=== PATIENT | female | born 1950 | race Caucasian/White ===

== ENCOUNTER 2019-10-26 12:40 | Outpatient (CLI) | payer MEDICARE, SELFPAY ==
--- NOTE | ~2019-10-26 | XR_ITS ---
XR chest 2V 10/26/2019 12:59 Indication: Mycobacterium infection Procedure: 2 view chest Comparison: Comparison to multiple prior studies sequentially, with oldest reviewed study dated 02/02. Findings: There is bullous emphysema. There is chronic bilateral scarring predominantly involving the upper lobes, right greater than left. There is increasing size of thick-walled cavitation in the rig ht midlung, likely infectious. Impression: 1: Increasing size of thick-walled irregular shaped cavitation right midlung, likely infectious. Othe rwise stable extensive bilateral scarring predominantly affecting the upper lobes. Reviewed, dictated and finalized at location A. Impression: 1: Increasing size of thick-walled irregular shaped cavitation right midlung, l ikely infectious. Otherwise stable extensive bilateral scarring predominantly a ffecting the upper lobes.
== END 2019-10-26 12:41 | disposition home or self-care (01) ==
PROVIDERS: PCP Family Medicine; Visit Provider Internal Medicine Pulmonary Disease
DX: A31.8 Other mycobacterial infections (principal); R91.8 Other nonspecific abnormal finding of lung field
CPT/HCPCS: 71046

== ENCOUNTER 2019-10-30 13:34 | Outpatient (CLI) | payer MEDICARE, SELFPAY ==
--- NOTE | ~2019-10-30 | CT_ITS ---
EXAMINATION: CT chest wo con DATE: 10/30/2019 14:10 INDICATION: Lung cavitation. TECHNIQUE: Computed tomography (CT) of the chest was performed without intravenous contrast. The dose -length product was 62.28 mGy-cm. Automated exposure control and iterative reconstruction technique w ere employed. COMPARISON: CT dated 12/12/2018 FINDINGS: Severe emphysema. There has been progression of bilateral nodular densities with significan t progression of associated cavitation with thick irregular aguilar, largest centered in the right uppe r lobe. There is right thoracic volume loss with mediastinal shift to the right. No significant pleur al or pericardial effusion. Heart size is normal. There are coarse interstitial changes of the lung b ases peripherally with pleural based soft tissue in the right lower lobe which has progressed. There are calcified granulomas in the liver and spleen. No osteolytic or osteoblastic lesions are identifie d. No thoracic lymphadenopathy. IMPRESSION: 1. Significant progression of irregular linear and nodular soft tissue primarily of involving the upp er lobes. There has been significant progression of associated cavitation. Differential diagnosis inc ludes infection (including atypical infection) and neoplasm including metastatic disease. Recommend c orrelation with pet/CT scan for further assessment. 2: Emphysema. Reviewed, dictated and finalized at location A. IMPRESSION: 1. Significant progression of irregular linear and nodular soft tissue primaril y of involving the upper lobes. There has been significant progression of assoc iated cavitation. Differential diagnosis includes infection (including atypical infection) and neoplasm including metastatic disease. Recommend correlation wi th pet/CT scan for further assessment. 2: Emphysema.
== END 2019-10-30 13:35 | disposition home or self-care (01) ==
PROVIDERS: PCP Family Medicine; Visit Provider Internal Medicine Pulmonary Disease
DX: R93.89 Abnormal findings on diagnostic imaging of other specified body structures (principal); R91.1 Solitary pulmonary nodule; J43.9 Emphysema, unspecified
CPT/HCPCS: 71250

== ENCOUNTER 2020-03-15 13:21 | Outpatient (CLI) | payer MEDICARE, SELFPAY ==
--- NOTE | ~2020-03-15 | CT_ITS ---
EXAMINATION:CT chest wo con DATE: 03/15/2020 14:08 INDICATION: Pulmonary nodule. TECHNIQUE: Computed tomography (CT) of the chest was performed without intravenous contrast. Automate d exposure control and iterative reconstruction technique were employed. The dose-length product (DLP ) was 61.66 mGy-cm. COMPARISON: Chest CT 10/30/2019, 12/12/2018 FINDINGS: There is severe emphysema. In right upper lobe and superior segment right lower lobe, there are airspace opacities with interval improvement with extensive cavitation. There are worsened airsp jd opacities with air bronchograms and volume loss involving lateral aspect of superior segment righ t lower lobe, likely pneumonia or scarring. There are chronic peripheral reticular opacities in the l ower lobes. There are stable airspace opacities with volume loss and cavitation in left upper lobe, c onsistent with scarring. There is chronic pleural thickening at posterolateral right lower lobe. No p leural effusion. The heart size is normal. There are coronary artery calcifications. Calcified right hilar and mediastinal lymph nodes are consistent with old granulomatous disease. Calcifications in th e liver and spleen are consistent with old granulomatous disease. There is mild thoracic spondylosis. IMPRESSION: 1. Areas of stable or improved airspace opacities with volume loss and cavitation involving the upper lobes and superior segment right lower lobe, consistent with pneumonia and scarring. 2. Worsened airspace opacities with air bronchograms and volume loss involving lateral aspect of supe rior segment right lower lobe, likely pneumonia and/or scarring. 3. Severe emphysema. Reviewed, dictated and finalized at location A. IMPRESSION: 1. Areas of stable or improved airspace opacities with volume loss and cavitati on involving the upper lobes and superior segment right lower lobe, consistent with pneumonia and scarring. 2. Worsened airspace opacities with air bronchograms and volume loss involving lateral aspect of superior segment right lower lobe, likely pneumonia and/or sc arring. 3. Severe emphysema.
== END 2020-03-15 13:22 | disposition home or self-care (01) ==
PROVIDERS: PCP Internal Medicine Pulmonary Disease; Visit Provider Internal Medicine Pulmonary Disease
DX: R91.8 Other nonspecific abnormal finding of lung field (principal); J43.9 Emphysema, unspecified
CPT/HCPCS: 71250; 87635; C9803; U0003

== ENCOUNTER 2020-06-28 09:13 | Outpatient (CLI) | payer MEDICARE, SELFPAY ==
--- NOTE | ~2020-06-28 | XR_ITS ---
EXAMINATION: XR barium swallow DATE: 06/28/2020 10:07 COCONUT COOKER INDICATION: . TECHNIQUE: Thick barium contrast with gas effervescent crystals were administered orally. Fluoroscop ic images of the esophagus were obtained in various projections. The hypopharynx was also examined. T hereafter, overhead images of the thoracic esophagrus were performed. Fluroscopy time 0.8 minutesDap 2.5. 41 fluoroscopic images. FINDINGS: There is a prominent Zenker's diverticulum. No obstruction of flow of contrast. There is no hiatal hernia. No discreet episode of gastroesophageal reflux is seen during the course of this benson dy. IMPRESSION: 1. Prominent Zenker's diverticulum. Reviewed, dictated and finalized at location A. NUT COOKER
== END 2020-06-28 09:14 | disposition home or self-care (01) ==
LOC: ANHIMG 09:22
PROVIDERS: PCP Physician Assistant; Visit Provider Physician Assistant
DX: R09.89 Other specified symptoms and signs involving the circulatory and respiratory systems (principal)
CPT/HCPCS: 74220

== ENCOUNTER 2020-08-02 14:32 | Outpatient (CLI) | payer MEDICARE, SELFPAY ==
--- NOTE | ~2020-08-02 | MM_ITS ---
EXAMINATION: MM screening charanjit BI w genevieve HISTORY: Screening mammogram TECHNIQUE: Craniocaudal and mediolateral oblique 3-D tomosynthesis images were obtained and synthetic 2-D images were generated. CAD analysis was submitted and interpreted. COMPARISON: 10/31/2017, 10/12/2015, 01/08/2014 bilateral digital screening mammogram examinations BREAST PARENCHYMAL COMPOSITION: There are scattered areas of fibroglandular density. FINDINGS: Occasional bilateral benign calcifications. There is no evidence of suspicious mass, calcif ication, or architectural distortion to suggest malignancy in either breast. There has been no suspic ious interval change. IMPRESSION: 1. No mammographic evidence of malignancy. 2. Recommend routine screening mammography in one year. BI-RADS Category 2: Benign finding(s). Reviewed, dictated and finalized at location A. RTMENT TRAFFIC FREIGHT ROUTER
== END 2020-08-02 14:33 | disposition home or self-care (01) ==
LOC: ANHIMG 14:33
PROVIDERS: PCP Physician Assistant; Visit Provider Family Medicine
DX: Z12.31 Encounter for screening mammogram for malignant neoplasm of breast (principal)
CPT/HCPCS: 77063; 77067

== ENCOUNTER 2020-08-10 09:57 | Outpatient (CLI) | payer MEDICARE, SELFPAY ==
--- NOTE | ~2020-08-10 | CT_ITS ---
EXAMINATION: CT diagnostic chest wo con DATE: 08/10/2020 10:20 INDICATION: PLEUREL EFFUSION, EMPHYSEMA, ABNORMAL FINDING OF LUNG FIELD TECHNIQUE: Computed tomography (CT) of the chest was performed without intravenous contrast. Addition al 3D reconstructions utilizing coronal maximum intensity projection (MIP) were performed. Automated exposure control and iterative reconstruction technique were employed. The dose-length product was 13 1.72 mGy-cm. COMPARISON: 03/15/2020 FINDINGS: Severe emphysema. Large cavitary lesion involving a significant portion of the posterior right upper to midlung zone with no significant change in regions of peripheral a thickened wall and multiple is impacted bronchi extending through the cavitation. There is decrease in thickness of a few bands of l inear scarring extending anteriorly and inferiorly from the cavitary lesion. There is been interval p rogression of a now thicker linear band of consolidation extending obliquely across the left mid to u pper lung zone with associated volume loss most likely atelectasis/scarring. Slight progression in a reticular pattern with irregular septal line thickening at the lateral lung bases. Unchanged band of chronic pleural thickening at the posterolateral right lower lobe. No pleural effusion or pneumothora x. Heart size is normal. Atherosclerotic coronary artery calcific lesion. No pericardial effusion. At herosclerotic calcification is along the normal caliber thoracic aorta. Calcified right hilar and med iastinal lymph nodes along with a few scattered hepatic and splenic calcifications, all consistent wi th old granulomatous disease. Mild to moderate thoracic spondylosis. IMPRESSION: 1. Continued mild improvement in airspace opacities with volume loss at the periphery of a large cavi tary lesion in the right upper lobe likely sequela of prior pneumonia and scarring. 2. Increasing thickness of a band of consolidation with corresponding increasing volume loss in the l eft upper lobe, also likely worsening atelectasis/scarring related to prior infection. 3. Severe emphysema. 4. Increasing reticular pattern at the bilateral lung bases which could represent mild pulmonary lucrecia a or chronic interstitial fibrosis with nonspecific interstitial pneumonia (NSIP) pattern. Reviewed, dictated and finalized at location B. L WORKER IMPRESSION: 1. Continued mild improvement in airspace opacities with volume loss at the per iphery of a large cavitary lesion in the right upper lobe likely sequela of samir or pneumonia and scarring. 2. Increasing thickness of a band of consolidation with corresponding increasin g volume loss in the left upper lobe, also likely worsening atelectasis/scarrin g related to prior infection. 3. Severe emphysema. 4. Increasing reticular pattern at the bilateral lung bases which could represe nt mild pulmonary edema or chronic interstitial fibrosis with nonspecific inter stitial pneumonia (NSIP) pattern.
== END 2020-08-10 09:58 | disposition home or self-care (01) ==
LOC: ANHIMG 10:01
PROVIDERS: PCP Physician Assistant; Visit Provider Internal Medicine Pulmonary Disease
DX: J90 Pleural effusion, not elsewhere classified (principal); J43.9 Emphysema, unspecified
CPT/HCPCS: 71250

== ENCOUNTER 2020-09-11 07:38 | Observation (INO) | payer MEDICARE, SELFPAY ==
[2020-09-11] VITALS (17 sets, daily range): BP systolic 108–161; BP diastolic 59–88; PULSE 68–86; RESP 16–20; TEMP 36.3–36.9; O2SAT 93–96; BMI 25.9
--- NOTE | ~2020-09-11 | CT_ITS ---
EXAMINATION: CTA chest PE protocol DATE: 09/11/2020 09:04 INDICATION: Hemoptysis TECHNIQUE: Computed tomography angiography (CTA) of the chest was performed with 100 mL Omnipaque-350 intravenous contrast timed to evaluate the pulmonary arteries. Coronal maximum intensity projection 3D-reconstructions were created by the technologist. Automated exposure control and iterative reconst ruction technique were employed. Exam dose: 279.24 mGy-cm total exam DLP. COMPARISON: 09/03 portable AP chest 08/10/2020 CT chest FINDINGS: There is diagnostic contrast enhancement of the pulmonary arteries and no evidence of pulmo nary embolism. No thoracic aortic aneurysm or dissection. There is aortic, great vessel and coronary artery calcific ation. Normal heart size. No pericardial or pleural effusion. No hilar or mediastinal mass lesion or lymphad enopathy. Again noted is a large cavity in the right mid to upper posterior lung, bilateral scarring in the upp er lobes and superior segment of the right lower lobe reticular. Peripheral interstitial fibrosis in the lower lobes particularly, suggesting usual interstitial pneumonia. No suspicious osteolytic or osteoblastic lesions. IMPRESSION: No evidence of pulmonary embolism Emphysematous changes Persistent large cavity in the posterior mid to upper right lung Extensive bilateral fibrotic changes Reviewed, dictated and finalized at Location A. Reviewed, dictated and finalized at location A. LE SCHOOL READING TEACHER
--- NOTE | ~2020-09-11 | CT_ITS ---
EXAMINATION: CT brain wo con DATE: 09/11/2020 09:04 INDICATION: Left leg paresis. TECHNIQUE: Computed tomography (CT) of the head was performed without intravenous contrast. The mA wa s adjusted according to patient size. Iterative reconstruction technique was employed. Exam dose: 60 5.33 mGy-cm total exam DLP. COMPARISON: 03/25/2017 MRI brain/brainstem 03/25/2017 CT brain FINDINGS: Bilateral carotid siphon internal carotid artery calcifications. Right vertebral artery abdirahman cification. There is mild nonspecific diminished attenuation of the cerebral white matter, likely due to chronic small vessel ischemic changes. No intracranial mass lesion or hemorrhage or cerebrovascular accident is evident. No midline shift or mass effect effect. No subdural or epidural hematoma. Paranasal sinuses and mastoid air cells are unremarkable. No skull fracture or bone destruction. IMPRESSION: Cerebral atherosclerosis and chronic small vessel ischemic changes of cerebral white mat ter No acute intracranial finding Reviewed, dictated and finalized at Location A. Reviewed, dictated and finalized at location A. MOTIVE REFINISH TECHNICIAN IMPRESSION: Cerebral atherosclerosis and chronic small vessel ischemic changes of cerebral white matter No acute intracranial finding
--- NOTE | ~2020-09-11 | XR_ITS ---
XR chest 1V portable DATE: 09/11/2020 08:50 INDICATION: Hemoptysis TECHNIQUE: Portable upright AP views on September 11, 2020 at 0850 hours COMPARISON: 10/26/2019 PA and lateral chest 08/10/2020 CT chest 09/11/2020 CT pulmonary scan FINDINGS: There is extensive scarring in the mid to upper lung zones bilaterally. Bilateral hyperinfl ation consistent with COPD. Increased interstitial markings in the lower lung zones likely due to chr onic interstitial fibrosis. No pleural effusion or pulmonary vascular congestion or pneumothorax is evident. Heart size appears within normal limits. Is aortic arch calcification. Diffuse prominent osteopenia. IMPRESSION: COPD, extensive scarring in the mid to upper lung zones, bibasilar interstitial fibrosis Reviewed, dictated and finalized at location A. OMER SERVICE ENGINEER
--- NOTE | 2020-09-11 07:45 | ECG_ITS ---
Measurements Intervals [place] Rate: 74 P: PA: 0 QRS: 163 QRSD: 101 T: 54 QT: 383 QTc: 427 Interpretive Statements SINUS RHYTHM RIGHT AXIS DEVIATION INCOMPLETE RIGHT BUNDLE BRANCH BLOCK BORDERLINE R WAVE PROGRESSION, ANTERIOR LEADS BASELINE ARTIFACT- I, II, III, AVR, AVL BORDERLINE ECG Electronically Signed On 09-11-2020 12:42:56 FINANCIAL PROFESSIONAL by Mihir Albert D.O.
--- NOTE | 2020-09-11 07:48 | ED.NEUROSD ---
HPI - Neuro Symptoms/Deficit General Chief Complaint: Neuro Symptoms/Deficit Stated Complaint: neuro symptoms History of Present Illness HPI Narrative: She awoke from sleep around 5AM today with a feeling of numbness in her left leg. She reports that she is not able to move it normally, but she appears to be moving quite well. She says that she may have originally had numbness in the left arm as well, although she does not have any at this time. Related Data Home Medications Medication Instructions Recorded Confirmed albuterol sulfate 0.63 mg/3 mL 2.5 mg INHALATION Q12H 08/19/19 09/11/20 solution for nebulization albuterol sulfate 90 mcg/actuation 2 inhalation INHALATION Q4-6H PRN 08/19/19 09/11/20 aerosol inhaler gm budesonide-formoterol HFA 160 2 puff INHALATION Q12H 08/19/19 09/11/20 mcg-4.5 mcg/actuation aerosol inhaler cevimeline 30 mg capsule 1 cap PO TID 08/19/19 09/11/20 leflunomide 20 mg tablet 20 mg PO DAILY 08/19/19 09/11/20 omeprazole 20 mg capsule,delayed 20 mg PO DAILY 08/19/19 09/11/20 release cetirizine 10 mg tablet 5 mg PO DAILY 08/20/19 09/11/20 aspirin 325 mg tablet 325 mg PO HS 05/20/20 09/11/20 diphenhydramine HCl 25 mg tablet 50 mg PO HS 05/20/20 09/11/20 alprazolam 0.25 mg PO HS PRN 09/11/20 09/11/20 irbesartan 75 mg PO DAILY 09/11/20 09/11/20 Allergies Allergy/AdvReac Type Severity Reaction Status Date / Time No Known Allergies Verified 09/11/20 07:44 Review of Systems Review of Systems: All systems reviewed & are unremarkable except as noted in HPI and below Constitutional: Constitutional: Denies fever(s) and Reports weakness Eyes: Eyes: Reports no additional eye complaints ENT: Denies dizziness Cardiovascular: Cardiovascular: Denies chest pain Respiratory: Respiratory: Denies dyspnea Gastrointestinal: Gastrointestinal: Denies abdominal pain Genitourinary: Genitourinary: Denies hematuria and Denies dysuria Musculoskeletal: Musculoskeletal: Reports myalgias Neurologic: Reports focal weakness and Reports numbness PMFSH Past Medical History Medical History Chronic GERD COPD (chronic obstructive pulmonary disease) CVA (cerebral vascular accident) JOSE DAVID (generalized anxiety disorder) Hyperlipidemia Hypertension Hypothyroidism determined by thyroid function test Mycobacterial pneumonia Rheumatoid arthritis Surgical History Surgical History Cataract extraction status History of cholecystectomy History of removal of pigmented skin lesion Family History Family History Mother Family history of heart disease in male family member before age 55 Family history of cardiovascular disease Family history of emphysema Father Family history of cardiovascular disease Acute myocardial infarction Grandparent Family history of malignant neoplasm Sibling Cerebrovascular accident Sibling Cerebrovascular accident Other Family history of malignant neoplasm of breast in first degree relative Social History Social History Social History: The patient is retired from doing office work. She lives with her who is a durable power associate attorney for healthcare. Her daughter Adelaida is also the durable power associate attorney for healthcare in the event that her is not available. The patient is a former smoker. She does not use any marijuana or illicit drugs. Alcohol. Smoking packs per day: 1 Smoking cigarettes per day: 20.0 Years smoked: 30 Smoking pack-years: 30.00 Smoking status: Former smoker Tobacco type: cigarettes Second hand tobacco smoke exposure: No Smoking end date: 07/15/13 Alcohol intake: never Substance use: never Substance use type: does not use Gender identity (if verbalized by the patient): Female Flor
[2020-09-11 08:12] LABS: Basophils Absolute Auto 0.1 K/mm3 (0.0-0.1); Basophils Percent Auto 1.1 % (0.2-1.2); Eosinophils Absolute Auto 0.3 K/mm3 (0-0.3); Hematocrit 40.4 % (37.0-47.0); Hemoglobin 13.4 g/dL (12.0-15.0); Immature Granulocyte Absolute 0.03 K/mm3 (0.00-0.031); Immature Granulocyte Percent A 0.3 % (0-0.5); Lymphocytes Absolute Auto 1.58 K/mm3 (0.9-3.2); Lymphocytes Percent Auto 17.2 % (18.3-44.2); Mean Corpuscular HGB Conc 33.2 g/dl (32-36); Mean Corpuscular Hemoglobin 30.9 pg (26-34); Mean Corpuscular Volume 93.1 fl (80-100); Mean Platelet Volume 8.9 fl (7.4-10.4); Monocytes Absolute Auto 0.9 K/mm3 (0.1-0.6); Monocytes Percent Auto 9.4 % (2.6-8.5); Neutrophils Absolute Auto 6.3 K/mm3 (1.3-6.7); Platelet Count Result 372 k/mm3 (150-375); Red Blood Count 4.34 M/mm3 (4.2-5.4); Red Cell Distribution Width 13.9 % (11.5-14.5); White Blood Count 9.2 K/mm3 (4.5-10.0)
[2020-09-11 08:14] LABS: Add Urine Microscopic? NO; Appearance Urine Clear (Clear); Bilirubin Urine Negative (Negative); Blood Urine Negative (Negative); Color Urine Straw (Yellow); Glucose Urine UA Negative (Negative); Ketones Urine Negative (Negative); Leukocyte Esterase Ur Negative LEU/UL (Negative); Nitrate Urine Negative (Negative); Protein Urine Negative (Negative); Specific Grav Ur 1.008 (1.001-1.035); Urobilinogen Urine Negative mg/dL (<2.0)
[2020-09-11 08:22] LABS: INR 0.9; Prothrombin Time 13.1 Seconds (11.1-14.7)
[2020-09-11 08:23] LABS: Partial Thromboplastin Time 37.7 SECONDS (22.3-36.8)
[2020-09-11 08:24] LABS: Alanine Aminotransferase 13 U/L (4-35); Alkaline Phosphatase 110 U/L (38-126); Anion Gap 9 mmol/L (8-16); Aspartate Amino Transferase 22 U/L (14-36); Bilirubin,Total 0.4 mg/dL (0.2-1.3); Blood Urea Nitrogen 8 mg/dL (7-17); Calcium 9.3 mg/dL (8.4-10.2); Carbon Dioxide 24 mmol/L (22-30); Chloride 106 mmol/L (98-107); Estimated Glomerular Filt Rate > 60; Glucose 98 mg/dL (65-105); Potassium 4.1 mmol/L (3.4-5.0); Sodium 139 mmol/L (137-145)
[2020-09-11 08:38] LABS: Troponin I 0.487 ng/mL (0.000-0.034)
[2020-09-11] MEDS: ACETAMINOPHEN 500 MG TABLET 1000 MG PO (10:50)
--- NOTE | 2020-09-11 13:03 | ECG_ITS ---
Measurements Intervals [place] Rate: 80 P: 9 MS: 168 QRS: 152 QRSD: 94 T: 54 QT: 391 QTc: 451 Interpretive Statements SINUS RHYTHM RIGHT AXIS DEVIATION INCOMPLETE RIGHT BUNDLE BRANCH BLOCK POOR R WAVE PROGRESSION, ANTERIOR LEADS BASELINE ARTIFACT- II, III, V5 BORDERLINE ECG Electronically Signed On 09-11-2020 16:04:17 FLAME CUTTER by Mihir Albert D.O.
--- NOTE | 2020-09-11 13:10 | ECG_ITS ---
Measurements Intervals [place] Rate: 80 P: 81 MT: 194 QRS: 140 QRSD: 100 T: 62 QT: 384 QTc: 444 Interpretive Statements SINUS RHYTHM RIGHT AXIS DEVIATION INCOMPLETE RIGHT BUNDLE BRANCH BLOCK POOR R WAVE PROGRESSION, ANTERIOR LEADS BASELINE ARTIFACT- I, III, AVR, AVL, AVF, V4-V6 Electronically Signed On 09-11-2020 16:08:22 LOGISTICS SUPERVISOR by Mihir Albert D.O.
[2020-09-11] MEDS: HEPARIN SODIUM 5,000 UNITS/ML VIAL 4000 UNITS IV PUSH ×2 (13:39→18:35)
--- NOTE | 2020-09-11 13:58 | ADMGEN ---
This patient, Malinda Olvera, was admitted to IMU Room 204-01. Patient/family oriented to hospital policies and general routines including ID bracelet, bed and alarms, visiting hours, pain management, procedures, bathroom and other care routines, personal items, smoking policy, room service/diet, and visiting hours. Information on how to activate the Rapid Response Team has been discussed. Patient/Family are encouraged to report perceived risks to care and to ask questions if they do not understand what they are told or what they should do.
[2020-09-11] MEDS: HEPARIN SOD/D5W 100 UNITS/ML 25,000 UNITS/250 ML BAG 6 UNITS IV CONT (14:16)
--- NOTE | 2020-09-11 17:29 | PM.IMHP ---
H&P: HPI History of Present Illness Date/Time: 09/11/20 17:29 Chief Complaint: Left leg weakness Narrative: Malinda Olvera is a 70 year old female who woke up from her sleep around 5:00 a.m. this morning and felt that her left leg was numb. The patient tells me that she has had a CVA in the past and that she has fully recovered from the stroke that she had in the past. She said when she had her last stroke she was not even able to speak and now she has regained all that. The patient stated that she could set up earlier today and she could feel her left leg. Now she can move her left leg some and she can sit up. She denies any chest pain. The patient has a history of having mac. She recently had been on rifampin and had a bad reaction to the medication. 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 She has been on 3 different antibiotics for her MAC. She uses inhalers and nebulizer treatment at home. The patient has a ecological technical officer elsewhere. Today she tells me that she is having some pressure in her chest. Patient's troponin was initially 0.487 and now it is 2.030. The patient was placed on a heparin drip. Divide deviation incomplete right bundle branch block poor R-wave progression anterior leads baseline artifact and borderline EKG chest CT a was read as no evidence of any pulmonary embolism. Atherosclerosis and chronic small vessel ischemic changes of cerebral white matter. No acute intracranial finding. Chest x-ray was read as COPD extensive scarring in the mid to upper lung zones, bibasilar interstitial fibrosis. On heparin drip in the emergency room. Patient is being admitted for observation. Date of service is 09/11/2020 Review of Systems Review of Systems: All systems reviewed & are unremarkable except as noted in HPI and below Constitutional: Constitutional: Reports as per HPI and Reports no additional constitutional complaints Eyes: Eyes: Reports as per HPI and Reports no additional eye complaints ENT: Reports system reviewed and no additional complaints, except as documented and Reports Normal hearing present Cardiovascular: Cardiovascular: Reports no additional cardiovascular complaints Respiratory: Respiratory: Reports no additional respiratory complaints and Reports no additional respiratory complaints Gastrointestinal: Gastrointestinal: Reports as per HPI and Reports no additional gastrointestinal complaints Musculoskeletal: Musculoskeletal: Reports no additional musculoskeletal complaints Integumentary/Breasts: Skin/Breast: Reports system reviewed and no additional complaints, except as docu and Reports as per HPI Neurologic: Reports system reviewed and no additional complaints, except as documented, Reports as per HPI and Reports Normal hearing present Psychiatric: Psychiatric: Reports no additional psychiatric complaints and Reports as per HPI Endocrine: Endocrine: Reports no additional endocrine complaints Hematologic/Lymphatic: Hematologic/Lymphatic: Reports no additional hematologic/lymphatic complaints Allergic/Immunologic: Allergic/Immunologic: Reports no additional allergic/immunologic complaints [facility] [place] Past Medical History Medical History (Updated 09/11/20 @ 17:42 by Natalya Leonard NP) Chronic GERD COPD (chronic obstructive pulmonary disease) CVA (cerebral vascular accident) JOSE DAVID (generalized anxiety disorder) Hyperlipidemia Hypertension Hypothyroidism determined by thyroid function test Mycobacterial pneumonia Rheumatoid arthritis Surgical History Surgical History (Updated 09/11/20 @ 17:42 by Natalya Leonard NP) Cataract extraction status History of cholecystectomy History of removal of pigmented skin lesion Family History Family History Mother Family history of heart disease in male family member before age 55 Family history of cardiovascular disease Family history of emphysema F
[2020-09-11 18:16] LABS: Partial Thromboplastin Time 45.1 SECONDS (22.3-36.8)
[2020-09-11] MEDS: HEPARIN SOD/D5W 100 UNITS/ML 25,000 UNITS/250 ML BAG 8 UNITS IV CONT (18:36)
[2020-09-11] MEDS: ACETAMINOPHEN/CODEINE (*CRX) 300/30 MG TABLET 0.5 TAB PO (20:50)
[2020-09-11] MEDS: ALPRAZolam (*CRX) 0.25 MG TABLET PO (20:50)
[2020-09-11] MEDS: diphenhydrAMINE HCl CAP 25 MG CAPSULE PO (20:51)
[2020-09-12] VITALS (19 sets, daily range): BP systolic 101–129; BP diastolic 49–69; PULSE 71–93; RESP 14–22; TEMP 35.8–36.6; O2SAT 92–100
[2020-09-12 00:45] LABS: Partial Thromboplastin Time 63.9 SECONDS (22.3-36.8)
[2020-09-12] MEDS: HEPARIN SODIUM 5,000 UNITS/ML VIAL 2000 UNITS IV PUSH (01:54)
--- NOTE | 2020-09-12 07:31 | PHAR ---
The patient's home med of Cevimeline [Evoxac] 30 mg capsule has been verified.
--- NOTE | 2020-09-12 08:30 | WPDNEURCNPN ---
Assessment and Plan Additional Plan TIA evaluation is being carried out Consult date: 09/12/20 Time Seen: 09:00 HPI: Malinda Olvera is a 70 year old femaleFor the complaints of left lower extremity weakness. Patient woke up from her sleep around 5:00 a.m. and felt as if her left lower extremity was numb. 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 in the past she has ongoing history of GERD, COPD, generalized anxiety disorder, hypertension, hypothyroidism, and mycobacterial pneumonia, and rheumatoid arthritis. Investigations up until now include chest CTA and head CT scan, O the studies are negative PMFSH Past Medical History Medical History Chronic GERD COPD (chronic obstructive pulmonary disease) CVA (cerebral vascular accident) JOSE DAVID (generalized anxiety disorder) Hyperlipidemia Hypertension Hypothyroidism determined by thyroid function test Mycobacterial pneumonia Rheumatoid arthritis Surgical History Surgical History Cataract extraction status History of cholecystectomy History of removal of pigmented skin lesion Family History Family History Mother Family history of heart disease in male family member before age 55 Family history of cardiovascular disease Family history of emphysema Father Family history of cardiovascular disease Acute myocardial infarction Grandparent Family history of malignant neoplasm Sibling Cerebrovascular accident Sibling Cerebrovascular accident Other Family history of malignant neoplasm of breast in first degree relative Social History Social History Social History: The patient is retired from doing office work. She lives with her who is a durable power county attorney for healthcare. Her daughter Adelaida is also the durable power county attorney for healthcare in the event that her is not available. The patient is a former smoker. She does not use any marijuana or illicit drugs. Alcohol. Smoking packs per day: 1 Smoking cigarettes per day: 20.0 Years smoked: 30 Smoking pack-years: 30.00 Smoking status: Former smoker Tobacco type: cigarettes Second hand tobacco smoke exposure: No Smoking end date: 07/15/13 Alcohol intake: never Substance use: never Substance use type: does not use Gender identity (if verbalized by the patient): Female Spiritual care concerns: No Meds Home Medications and Allergies Home Medications Medication Instructions Recorded Confirmed Type albuterol sulfate 0.63 mg/3 mL 2.5 mg INHALATION Q12H 08/19/19 09/11/20 History solution for nebulization albuterol sulfate 90 mcg/actuation 2 inhalation INHALATION Q4-6H PRN 08/19/19 09/11/20 History aerosol inhaler gm budesonide-formoterol HFA 160 2 puff INHALATION Q12H 08/19/19 09/11/20 History mcg-4.5 mcg/actuation aerosol inhaler cevimeline 30 mg capsule 1 cap PO TID 08/19/19 09/11/20 History leflunomide 20 mg tablet 20 mg PO DAILY 08/19/19 09/11/20 History omeprazole 20 mg capsule,delayed 20 mg PO DAILY 08/19/19 09/11/20 History release cetirizine 10 mg tablet 5 mg PO DAILY 08/20/19 09/11/20 History aspirin 325 mg tablet 325 mg PO HS 05/20/20 09/11/20 History diphenhydramine HCl 25 mg tablet 50 mg PO HS 05/20/20 09/11/20 History atorvastatin 20 mg tablet 20 mg PO DAILY #90 tablet 08/15/20 09/11/20 Rx alprazolam 0.25 mg PO HS PRN 09/11/20 09/11/20 History i
[2020-09-12] MEDS: LEFLUNOMIDE 20 MG TABLET PO (08:43)
[2020-09-12] MEDS: LORATADINE 5 MG TABLET PO (08:43)
[2020-09-12] MEDS: ACETAMINOPHEN/CODEINE (*CRX) 300/30 MG TABLET 0.5 TAB PO (08:44)
[2020-09-12] MEDS: AZITHROMYCIN 250 MG TABLET PO (08:44)
[2020-09-12] MEDS: PANTOPRAZOLE 40 MG TABLET PO (08:45)
[2020-09-12] MEDS: IRBESARTAN 75 MG TABLET PO (08:45)
[2020-09-12] MEDS: ATORVASTATIN 20 MG TABLET PO (08:45)
--- NOTE | 2020-09-12 08:53 | PC.NURSE ---
Patient states she is no longer taking 150mg of Irbesartan.
[2020-09-12 09:06] LABS: Basophils Absolute Auto 0.1 K/mm3 (0.0-0.1); Basophils Percent Auto 1.4 % (0.2-1.2); Eosinophils Absolute Auto 0.2 K/mm3 (0-0.3); Eosinophils Percent Auto 2.6 % (0-4.4); Hematocrit 37.3 % (37.0-47.0); Hemoglobin 12.4 g/dL (12.0-15.0); Immature Granulocyte Absolute 0.03 K/mm3 (0.00-0.031); Immature Granulocyte Percent A 0.3 % (0-0.5); Lymphocytes Absolute Auto 1.92 K/mm3 (0.9-3.2); Lymphocytes Percent Auto 21.8 % (18.3-44.2); Mean Corpuscular HGB Conc 33.2 g/dl (32-36); Mean Corpuscular Hemoglobin 30.5 pg (26-34); Mean Corpuscular Volume 91.6 fl (80-100); Mean Platelet Volume 9.2 fl (7.4-10.4); Monocytes Absolute Auto 0.9 K/mm3 (0.1-0.6); Monocytes Percent Auto 10.2 % (2.6-8.5); Neutrophils Absolute Auto 5.6 K/mm3 (1.3-6.7); Neutrophils Percent Auto 63.7 % (45.5-73.1); Platelet Count Result 387 k/mm3 (150-375); Red Blood Count 4.07 M/mm3 (4.2-5.4); Red Cell Distribution Width 14.1 % (11.5-14.5); White Blood Count 8.8 K/mm3 (4.5-10.0)
[2020-09-12 09:12] LABS: Lactic Acid Reflex 1.2 mmol/L (0.7-2.1); Partial Thromboplastin Time 49.5 SECONDS (22.3-36.8)
[2020-09-12 09:14] LABS: Alanine Aminotransferase 14 U/L (4-35); Albumin Level 3.9 g/dL (3.5-5.1); Alkaline Phosphatase 95 U/L (38-126); Anion Gap 6 mmol/L (8-16); Aspartate Amino Transferase 27 U/L (14-36); Bilirubin,Total 0.4 mg/dL (0.2-1.3); Blood Urea Nitrogen 9 mg/dL (7-17); Calcium 9.1 mg/dL (8.4-10.2); Carbon Dioxide 25 mmol/L (22-30); Chloride 104 mmol/L (98-107); Estimated CRCL calculation 53 ml/min; Estimated Glomerular Filt Rate > 60; Glucose 127 mg/dL (65-105); Sodium 135 mmol/L (137-145)
[2020-09-12 09:28] LABS: Troponin I 0.581 ng/mL (0.000-0.034)
[2020-09-12] MEDS: ALBUTEROL SULFATE NEB 2.5 MG/0.5 ML INH INHALATION (10:37)
[2020-09-12] MEDS: HEPARIN SODIUM 5,000 UNITS/ML VIAL 4000 UNITS IV PUSH (11:14)
--- NOTE | 2020-09-12 12:30 | PM.CNCAR ---
Assessment and Plan Additional Plan 70-year-old woman with: Intermittent episodes of back and substernal chest burning that have been occurring off and on of recent onset. She has been attributing these symptoms to her anti mycobacterial agent. Obviously the symptoms could easily be related to myocardial ischemia given her risk factors. Her troponin levels indicate evidence of acute coronary syndrome. She has been receiving aspirin and has now been heparinized. Had a long discussion with the patient and her regarding the concern that this raises regarding coronary artery disease. The options of conservative medical treatment versus proceeding with an angiogram have been discussed in detail. The decision is that the patient favors a early invasive approach to this and evaluation. I will arrange for angiography this afternoon. Further recommendations will be pending completion of that exam. Obviously she had as a high risk for surgical revascularization given her extensive lung disease. Abhay Spivey MD [facility] History of Present Illness History of Present Illness Consult date/time: 09/12/20 12:30 Consult reason: chest pain Reason For Visit: leg weakness/elevated troponin/hemoptysis Narrative: This is a 70-year-old woman that I am seeing at the request of the hospitalist because of some symptoms of back and chest pain and a elevated troponin level that was identified following admission. She actually came to the hospital yesterday morning with noncardiac symptoms of numbness and motor dysfunction of her left lower extremity. She had some mild symptoms in her left arm but the principal concern was of her left leg she noticed the symptoms when she awakened from sleep yesterday. 911 was called she was brought to the hospital for evaluation. The left leg symptoms became improved over the course of the day yesterday when she woke up this morning she states the leg feels close to normal. She was felt to have had a TIA and was seen by the Neurology testing consultant. A CT scan of the head did not demonstrate any intracranial bleeding. In addition to the symptoms she states she has been having some episodes of discomfort in the interscapular region of her back associated with some burning in the center of the chest in the sternal region. These symptoms seem to be coming and going in an unpredictable fashion. She was recently started on Rifampin by her larriman helper and she was attributing these symptoms to her antibiotic. The patient apparently because of these symptoms had troponin levels done which were negative on the 1st sample but the 2nd sample laurent up to over 2.0. For that reason I have been consulted to see her today. She has no active complaints at the time of this consultation. She has the diagnosis of hypertension and some dyslipidemia her principal comorbidity however is relatively severe chronic lung disease. This appears to be due to previous history of cigarette smoking as well as chronic mycobacterium avium intracellulare infection. She has cavitary lesions in the lung apices bilaterally. Review of Systems Constitutional: Constitutional: Reports no additional constitutional complaints Eyes: Eyes: Reports no additional eye complaints ENT: Reports nasal discharge Cardiovascular: Cardiovascular: Reports as per HPI Respiratory: Respiratory: Reports cough and Reports dyspnea Comments: Chronic cough occasionally blood streaked hemoptysis Gastrointestinal: Gastrointestinal: Reports no additional gastrointestinal complaints Musculoskeletal: Musculoskeletal: Reports no additional musculoskeletal complaints Integumentary/Breasts: Skin/Breast: Reports system reviewed and no additional complaints, except as docu Neurologic: Reports system reviewed and no additional complaints, except as documented Psychiatric: Psychiatric: Reports no additional psychiatric complaints Endocrine: Endocrine: Reports no additional endocrine compla
--- NOTE | 2020-09-12 13:33 | WPDMODSED ---
Moderate Sedation Note-Pt Data Patient Data Diagnosis: intermittent chest interscapular back pain left lower extremity numbness troponin elevation compatible with acute coronary syndrome Present Complaint: intermittent retrosternal burning and interscapular pain and troponin elevation Procedure to be performed/Plan: left heart catheterization Allergies Allergy/AdvReac Type Severity Reaction Status Date / Time No Known Allergies Verified 09/11/20 07:44 Home Medications Medication Instructions Recorded Confirmed Type albuterol sulfate 0.63 mg/3 mL 2.5 mg INHALATION Q12H 08/19/19 09/11/20 History solution for nebulization albuterol sulfate 90 mcg/actuation 2 inhalation INHALATION Q4-6H PRN 08/19/19 09/11/20 History aerosol inhaler gm budesonide-formoterol HFA 160 2 puff INHALATION Q12H 08/19/19 09/11/20 History mcg-4.5 mcg/actuation aerosol inhaler cevimeline 30 mg capsule 1 cap PO TID 08/19/19 09/11/20 History leflunomide 20 mg tablet 20 mg PO DAILY 08/19/19 09/11/20 History omeprazole 20 mg capsule,delayed 20 mg PO DAILY 08/19/19 09/11/20 History release cetirizine 10 mg tablet 5 mg PO DAILY 08/20/19 09/11/20 History aspirin 325 mg tablet 325 mg PO HS 05/20/20 09/11/20 History diphenhydramine HCl 25 mg tablet 50 mg PO HS 05/20/20 09/11/20 History atorvastatin 20 mg tablet 20 mg PO DAILY #90 tablet 08/15/20 09/11/20 Rx alprazolam 0.25 mg PO HS PRN 09/11/20 09/11/20 History irbesartan 75 mg PO DAILY 09/11/20 09/11/20 History Current Medications: Active Medications Acetaminophen/Codeine Phosphate (Acetaminophen/Codeine (*Crx) 300/30 Mg Tablet) 0.5 tab PO QID PRN PRN Reason: Pain Last Admin: 09/12/20 08:44 Dose: 0.5 tab Documented by: Albuterol (Albuterol Sulfate Neb 2.5 Mg/0.5 Ml Inh) 2.5 mg INHALATION Q4HRT PRN PRN Reason: Shortness Of Breath Last Admin: 09/12/20 10:37 Dose: 2.5 mg Documented by: Alprazolam (Alprazolam (*Crx) 0.25 Mg Tablet) 0.25 mg PO HS PRN PRN Reason: Anxiety Last Admin: 09/11/20 20:50 Dose: 0.25 mg Documented by: Atorvastatin Calcium (Atorvastatin 20 Mg Tablet) 20 mg PO DAILY [facility] Last Admin: 09/12/20 08:45 Dose: 20 mg Documented by: Azithromycin (Azithromycin 250 Mg Tablet) 250 mg PO DAILY [facility] Last Admin: 09/12/20 08:44 Dose: 250 mg Documented by: Benzonatate (Benzonatate 100 Mg Capsule) 200 mg PO TID PRN PRN Reason: Cough Budesonide/Formoterol Fumarate (Budesonide/Form 160-4.5 Mcg (*Sp)) 2 puff INHALATION Q12HRT [facility] Last Admin: 09/12/20 10:43 Dose: 2 puff Documented by: Diphenhydramine HCl (Diphenhydramine Hcl Cap 25 Mg Capsule) 25 mg PO Q6H PRN PRN Reason: Allergy Symptoms Last Admin: 09/11/20 20:51 Dose: 25 mg Documented by: Heparin Sodium (Porcine) (Heparin Sodium 5,000 Units/Ml Vial) 4,000 units IV PUSH PRN PRN PRN Reason: aPTT less than 55 seconds Last Admin: 09/12/20 11:14 Dose: 4,000 units Documented by: Heparin Sodium (Porcine) (Heparin Sodium 5,000 Units/Ml Vial) 2,000 units IV PUSH PRN PRN PRN Reason: aPTT 55 - 70 seconds Last Admin: 09/12/20 01:54 Dose: 2,000 units Documented by: Heparin Sodium/Dextrose (Heparin Sodium/D5w 100 Units/Ml) 25,000 units in 250 mls @ 11 mls/hr IV CONT .[id number] [facility]; Protocol Last Titration: 09/12/20 11:16 Dose: 1,100 units/hr, 11 mls/hr Documented by: Irbesartan (Irbesartan 150 Mg Tablet) 150 mg PO DAILY [facility] Last Admin: 09/12/20 08:53 Dose: Not Given Documented by: Irbesartan (Irbesartan 75 Mg Tablet) 75 mg PO DAILY [facility] Last Admin: 09/12/20 08:45 Dose: 75 mg Documented by: Leflunomide (Leflunomide 20 Mg Tablet) 20 mg PO DAILY [facility] Last Admin: 09/12/20 08:43 Dose: 20 mg Documented by: Loratadine (Loratadine 5 Mg Tablet) 5 mg PO DAILY PRN PRN Reason: Cough from allergies Last Admin: 09/12/20 08:43 Dose: 5 mg Documented by: Pantoprazole Sodium (Pantoprazole 40 Mg Tablet) [facility] [place] Admin: 09/12/20 08:45 Dose: 40 mg Documented by: Sedation/Anesthe
--- NOTE | 2020-09-12 14:35 | P.PCNCC_ITS ---
Cardiac Cath Procedure Note Date of procedure:: 09/12/20 Performing physician:: Abhay Spivey MD Indication:: intermittent chest pain, troponin elevation Brief clinical history:: this is a 70-year-old lady with a long history of chronic lung disease and intermittent episodes of chest discomfort and intermittent back discomfort. In the setting of all of this she developed a modest troponin rise and has been seen in consultation. Angiography was recommended to rule out obstructive coronary disease. Procedure Procedure performed:: Left ventriculography coronary angiography Angio-Seal to right femoral artery Sedation/Medication given:: fentanyl 25 mg Versed 2 mg case start 14 15 hours case time 2:29 p.m. sedation provided by Keysha Lincoln RN, trained observer Access site:: right femoral artery Estimated blood loss:: 10-15 cc Procedure note:: patient was brought to the cardiac catheterization lab in the postabsorptive state where the right femoral triangle was prepared and draped in the usual fashion. Anesthesia was provided with 1% lidocaine infiltrated locally. Using the modified Seldinger technique the femoral artery was punctured and a 5 [place] vascular sheath was placed. After this left heart catheterization was carried out. A 5 [place] angled pigtail catheter was used to measure left-sided hemodynamics and to inject the left ventriculogram in the are AO projection. After this a 5 [place] FL4 catheter was used to engage and inject the left coronary artery and a 5 [place] JR4 catheter was then used to engage and inject the right coronary artery. Procedure was then terminated. An angiogram was done of the femoral artery through the sheath after which a 6 [place] Angio- Seal device was used to deploy the puncture site with a good hemostatic result. There were no apparent procedural complications and she left the dental laboratory assistant with no evidence of a groin hematoma. Findings:: Hemodynamics: Central aorta is 1 10/52 left ventricle 110/1 end- diastolic pressure of 8 there is no systolic gradient on pullback across the aortic valve. Left ventricle: Dimension of the left ventricle is normal. The apical 1/3 of the left ventricle is akinetic the apex is frankly dyskinetic. The mid and basal portions contract well. The left main coronary is nicely patent left anterior descending is a medium caliber artery the LAD and its branches are patent down to the apex there is no evidence of atherosclerosis. Circumflex is dominant to the inferior segment the circumflex the marginal branches in the posterior branches are angiographically free of disease. Right coronary artery small in caliber and non dominant giving rise to 2 RV branches. The right coronary is also free of atherosclerosis. Conclusion:: 1. Left coronary dominant circulation with no evidence of coronary disease 2. the ventricular pattern typical of apical ballooning the picture of takotsubo stress cardiomyopathy Abhay Spivey MD [facility]
--- NOTE | 2020-09-12 15:49 | PM.IMPN ---
Progress Note: A&P Assessment and Plan (1) NSTEMI (non-ST elevated myocardial infarction): Code(s): I21.4 - Non-ST elevation (NSTEMI) myocardial infarction Status: Acute Assessment and Plan: Cardiology has been consulted. Will continue to trend her troponins. Patient is on heparin drip. She does not appear to be on any beta-filiberto. Further recommendations per Cardiology. 09/12/20 15:49 patient is 70-year-old female with history of CVA in the past, presented emergency department with a complaint left lower extremity weakness patient stated initially she could not feel or find her left lower extremity, gradually her symptoms improved, CT scan of the head was essentially normal without any acute injury, patient's symptoms have resolved and has no complaint of any weakness, however patient cardiac enzymes are significantly elevated patient seen by Cardiology and recommending cardiac catheterization for further evaluation, and son is also present in the room, patient had a cardiac catheterization it was essentially normal however it showed cardiomyopathy cardiology suspect takotsubo stress cardiomyopathy, for elevated tropes patient was placed on heparin drip was not able to have MRI of the brain, once off the drip will have MRI and further recommendation to follow, will have a PT OT evaluate the patient. Patient remains clinically stable, her symptoms have resolved and patient will likely discharge and will have MRI as outpatient by her primary care physician. (2) Mycobacterial pneumonia: Code(s): J15.8 - Pneumonia due to other specified bacteria; A31.9 - Mycobacterial infection, unspecified Status: Chronic Assessment and Plan: Continue with her home antibiotics and inhalers and nebulizer treatments. (3) COPD (chronic obstructive pulmonary disease): Qualifiers: COPD type: unspecified COPD Qualified Code(s): J44.9 - Chronic obstructive pulmonary disease, unspecified Code(s): J44.9 - Chronic obstructive pulmonary disease, unspecified Status: Acute Assessment and Plan: Continue with home inhalers and nebulizer treatments. (4) JOSE DAVID (generalized anxiety disorder): Code(s): F41.1 - Generalized anxiety disorder Status: Acute Assessment and Plan: Continue with alprazolam. (5) Hypertension: Qualifiers: Hypertension type: essential hypertension Qualified Code(s): I10 - Essential (primary) hypertension Code(s): I10 - Essential (primary) hypertension Status: Acute Assessment and Plan: Continue with irbesartan. (6) Rheumatoid arthritis: Code(s): M06.9 - Rheumatoid arthritis, unspecified Status: Acute Assessment and Plan: Continue with home medications. (7) Chronic GERD: Code(s): K21.9 - Gastro-esophageal reflux disease without esophagitis Status: Chronic Assessment and Plan: Continue with omeprazole. Time Spent With Patient Time with patient: 25 - 35 minutes Subjective Date/time seen: 09/12/20 15:49 patient is 70-year-old female with history of CVA in the past, presented emergency department with a complaint left lower extremity weakness patient stated initially she could not feel or find her left lower extremity, gradually her symptoms improved, CT scan of the head was essentially normal without any acute injury, patient's symptoms have resolved and has no complaint of any weakness, however patient cardiac enzymes are significantly elevated patient seen by Cardiology and recommending cardiac catheterization for further evaluation, and son is also present in the room, patient had a cardiac catheterization it was essentially normal however it showed cardiomyopathy cardiology suspect takotsubo stress cardiomyopathy, for elevated tropes patient was placed on heparin drip was not able to have MRI of the brain, once off the drip will have MRI and further recommendation to follow, will have a PT OT ev
--- NOTE | 2020-09-12 16:12 | SUR.PHASEII ---
Report called to Martha BISHOP. Patient transported back to IMU via stretcher. Groin and distal pulse assessed at bedside by both trestle mainternance laborer RN and Tanya BISHOP at bedside. Patient updated on plan of care and verbalizes understanding.
--- NOTE | 2020-09-12 16:12 | PM.DS ---
DS: Admitting Diagnosis Admitting Diagnosis Admitting Diagnosis: Chief Complaint: Left leg weakness DS: Discharge Diagnosis Discharge Diagnosis (1) NSTEMI (non-ST elevated myocardial infarction): Code(s): I21.4 - Non-ST elevation (NSTEMI) myocardial infarction Status: Acute Assessment and Plan: Cardiology has been consulted. Will continue to trend her troponins. Patient is on heparin drip. She does not appear to be on any beta-filiberto. Further recommendations per Cardiology. 09/12/20 15:49 patient is 70-year-old female with history of CVA in the past, presented emergency department with a complaint left lower extremity weakness patient stated initially she could not feel or find her left lower extremity, gradually her symptoms improved, CT scan of the head was essentially normal without any acute injury, patient's symptoms have resolved and has no complaint of any weakness, however patient cardiac enzymes are significantly elevated patient seen by Cardiology and recommending cardiac catheterization for further evaluation, and son is also present in the room, patient had a cardiac catheterization it was essentially normal however it showed cardiomyopathy cardiology suspect takotsubo stress cardiomyopathy, for elevated tropes patient was placed on heparin drip was not able to have MRI of the brain, once off the drip will have MRI and further recommendation to follow, will have a PT OT evaluate the patient. Patient remains clinically stable, her symptoms have resolved and patient will likely discharge and will have MRI as outpatient by her primary care physician. (2) Mycobacterial pneumonia: Code(s): J15.8 - Pneumonia due to other specified bacteria; A31.9 - Mycobacterial infection, unspecified Status: Chronic Assessment and Plan: Continue with her home antibiotics and inhalers and nebulizer treatments. (3) COPD (chronic obstructive pulmonary disease): Qualifiers: COPD type: unspecified COPD Qualified Code(s): J44.9 - Chronic obstructive pulmonary disease, unspecified Code(s): J44.9 - Chronic obstructive pulmonary disease, unspecified Status: Acute Assessment and Plan: Continue with home inhalers and nebulizer treatments. (4) JOSE DAVID (generalized anxiety disorder): Code(s): F41.1 - Generalized anxiety disorder Status: Acute Assessment and Plan: Continue with alprazolam. (5) Hypertension: Qualifiers: Hypertension type: essential hypertension Qualified Code(s): I10 - Essential (primary) hypertension Code(s): I10 - Essential (primary) hypertension Status: Acute Assessment and Plan: Continue with irbesartan. (6) Rheumatoid arthritis: Code(s): M06.9 - Rheumatoid arthritis, unspecified Status: Acute Assessment and Plan: Continue with home medications. (7) Chronic GERD: Code(s): K21.9 - Gastro-esophageal reflux disease without esophagitis Status: Chronic Assessment and Plan: Continue with omeprazole. DS: Summary Hospital Course Reason for hospitalization: Chief Complaint: Left leg weakness Narrative: Malinda Olvera is a 70 year old female who woke up from her sleep around 5:00 a.m. this morning and felt that her left leg was numb. The patient tells me that she has had a CVA in the past and that she has fully recovered from the stroke that she had in the past. She said when she had her last stroke she was not even able to speak and now she has regained all that. The patient stated that she could set up earlier today and she could feel her left leg. Now she can move her left leg some and she can sit up. She denies any chest pain. The patient has a history of having mac. She recently had been on rifampin and had a bad reaction to the medication. 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 She has been on 3 different antibiotics for her MAC.
== END 2020-09-12 17:00 | disposition home or self-care (01) ==
LOC: ANHED 08:30 → ANHIMU 15:34
PROVIDERS: Family Medicine; Internal Medicine Cardiovascular Disease; Nurse Practitioner; Specialist; Admitting Provider Family Medicine; Emergency Provider Emergency Medicine; PCP Physician Assistant; Visit Provider Family Medicine
PROC: 4A023N7 Measurement of Cardiac Sampling and Pressure, Left Heart, Percutaneous Approach (ICD-10-PCS; CPT 93452; principal; 2020-09-12 13:30)
DX: I21.4 Non-ST elevation (NSTEMI) myocardial infarction (principal); J15.8 Pneumonia due to other specified bacteria; A31.9 Mycobacterial infection, unspecified; E78.5 Hyperlipidemia, unspecified; F41.1 Generalized anxiety disorder; I10 Essential (primary) hypertension; J44.9 Chronic obstructive pulmonary disease, unspecified; K21.9 Gastro-esophageal reflux disease without esophagitis; M06.9 Rheumatoid arthritis, unspecified; Z87.891 Personal history of nicotine dependence; Z86.73 Personal history of transient ischemic attack (TIA), and cerebral infarction without residual deficits
CPT/HCPCS: 36415; 70450; 71045; 71275; 80053; 81003; 83605; 83735; 84443; 84484; 85025; 85610; 85730; 93005; 93458; 94640; 96365; 96366; 97161; 97165; 99285; A9270; C1760; C1887; C1894; G0269; G0378; J1644; J2250; J3010; J7040; Q9967

== ENCOUNTER 2020-09-16 14:27 | Outpatient (CLI) | payer MEDICARE, SELFPAY ==
--- NOTE | ~2020-09-16 | MR_ITS ---
EXAMINATION: MR brain/brain stem wo/w con EXAM DATE: 09/16/2020 15:29 INDICATION: Transient cerebral ischemic attack. Transient episode of left leg paresthesia. TECHNIQUE: Magnetic resonance imaging (MRI) of the brain/brain stem obtained without contrast. Sagit amos T1, axial diffusion, gradient echo (T2*), T1, T2, FLAIR sequences obtained. Patient was then inj ected with 12 cc intravenous Multihance contrast. Axial and coronal postcontrast T1 weighted sequence s obtained. Comparison is made to prior examination from 03/25/2017. 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 There are no areas of restricted diffusion to suggest acute infarction. There is no acute hemorrhage seen on the T2*, a hemosiderin sensitive sequence. No intraparenchymal brain mass lesion. There is mild to moderate periventricular and subcortical T2/F LAIR signal hyperintensity, nonspecific but probably related to small vessel ischemic disease (microa ngiopathy). There is mild prominence of the sulci and ventricles related to cerebral atrophy. The re are no extra-axial collections. Flow voids are seen in the cerebral arteries on the T2-weighted s equences consistent with their expected patency. Patient has had bilateral ocular lens surgery. Sof t tissue is unremarkable. There are no areas of abnormal enhancement on the post contrast images. IMPRESSION: 1. 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 2. Chronic age related findings. Reviewed, dictated and finalized at location A. UT SHELLER
== END 2020-09-16 14:28 | disposition home or self-care (01) ==
PROVIDERS: PCP Physician Assistant; Visit Provider Physician Assistant
DX: G45.9 Transient cerebral ischemic attack, unspecified (principal)
CPT/HCPCS: 70553; A9577

== ENCOUNTER → 2020-10-06 17:21 | Outpatient (CLI) | payer MEDICARE, SELFPAY ==
--- NOTE | ~2020-10-06 | XR_ITS ---
EXAMINATION: XR knee LT 3V EXAM DATE: 10/06/2020 17:56 INDICATION: Rheumatoid arthritis. TECHNIQUE: Three projections of the left knee. There is no prior study for comparison. FINDINGS: No evidence osteochondral defect or joint body in the left knee joint. There are no acute fractures or dislocations identified. There is no subcutaneous gas. The soft tissue is unremarkabl e. There are no radiopaque foreign bodies. No joint effusion. There is mild primary osteoarthritis . IMPRESSION: Mild left knee osteoarthritis. Reviewed, dictated and finalized at location A.
== END ==
PROVIDERS: PCP Physician Assistant; Visit Provider Physician Assistant
DX: M17.12 Unilateral primary osteoarthritis, left knee (principal); M06.862 Other specified rheumatoid arthritis, left knee
CPT/HCPCS: 73562

== ENCOUNTER 2021-08-12 13:35 | Outpatient (CLI) | payer MEDICARE, SELFPAY ==
--- NOTE | ~2021-08-12 | XR_ITS ---
XR lumbar spine min 4V DATE: 08/12/2021 13:59 INDICATION: Low back pain. No injury. TECHNIQUE: AP, lateral, bilateral oblique views, coned lateral lumbosacral view COMPARISON: None FINDINGS: There is diffuse osteopenia. No fracture or bone destruction, spondylolysis or spondylolisthesis of the lumbar spine is evident. There is mild to moderate degenerative disc disease of the lumbar and lumbosacral spine, most pronoun brady at L1-2 and L3-4. The sacroiliac joints are intact. Surgical clips overlie the right upper and midabdomen. IMPRESSION: Osteopenia Mild to moderate degenerative disc disease of the lumbar spine Reviewed, dictated and finalized at location A. ING AND REFRIGERATION INSPECTOR
--- NOTE | ~2021-08-12 | XR_ITS ---
XR chest 2V DATE: 08/12/2021 13:59 INDICATION: Shortness of breath, cough. Acute lower respiratory infection. History of COPD, hypertens ion. TECHNIQUE: PA and lateral views COMPARISON: September 11, 2020 portable AP chest views / view chest 05/18/2019 2 view chest FINDINGS: Bilateral hyperinflation consistent with COPD. There is prominent scarring in the mid to up per lung zones bilaterally. No pulmonary consolidation, pleural effusion, pulmonary vascular congestion or pneumothorax is eviden t. Normal heart size. Aortic calcification. Diffuse osteopenia. IMPRESSION: COPD and prominent bilateral mid to upper lung scarring Mild infiltrate, atelectasis or pulmonary mass lesion are not excluded. Reviewed, dictated and finalized at location A. ING MACHINE OPERATOR
== END 2021-08-12 13:36 | disposition home or self-care (01) ==
LOC: ANHIMG 13:40
PROVIDERS: PCP Family Medicine; Visit Provider Family Medicine
DX: J22 Unspecified acute lower respiratory infection (principal); M54.50 Low back pain, unspecified; M85.88 Other specified disorders of bone density and structure, other site; M51.36 Other intervertebral disc degeneration, lumbar region; J44.9 Chronic obstructive pulmonary disease, unspecified; R91.8 Other nonspecific abnormal finding of lung field
CPT/HCPCS: 71046; 72110

== ENCOUNTER 2022-01-04 13:29 | Outpatient (CLI) | payer MEDICARE, SELFPAY ==
--- NOTE | ~2022-01-04 | XR_ITS ---
XR chest 2V DATE: 01/04/2022 13:57 INDICATION: Asthma. Increased shortness of breath TECHNIQUE: 2 views COMPARISON: 08/12/2021 2 view chest 08/10/2020 CT chest FINDINGS: Again noted is prominent bilateral upper lobe scarring and bullous change. The lungs are hy perinflated consistent with COPD. Increased interstitial prominence at the lung bases suggesting chronic interstitial fibrotic change. No pulmonary consolidation, pleural effusion, pulmonary vascular congestion or pneumothorax is detect ed. No hilar or mediastinal enlargement is noted. Normal heart size. Aortic arch and descending thoracic aortic calcification. There is osteopenia. Dextroscoliosis of the thoracolumbar spine. IMPRESSION: Prominent scarring and bullous change in the upper lungs and COPD, probable bibasilar int erstitial fibrotic change No active disease or significant change since 08/12/2021 is evident Aortic calcification Osteopenia Reviewed, dictated and finalized at location A. IMPRESSION: Prominent scarring and bullous change in the upper lungs and COPD, probable bibasilar interstitial fibrotic change No active disease or significant change since 08/12/2021 is evident Aortic calcification Osteopenia
== END 2022-01-04 13:30 | disposition home or self-care (01) ==
PROVIDERS: PCP Family Medicine; Visit Provider Internal Medicine Pulmonary Disease
DX: J45.909 Unspecified asthma, uncomplicated (principal); J44.9 Chronic obstructive pulmonary disease, unspecified; I70.0 Atherosclerosis of aorta; M85.89 Other specified disorders of bone density and structure, multiple sites
CPT/HCPCS: 71046

== ENCOUNTER → 2022-06-19 13:08 | Outpatient (CLI) | payer MEDICARE, SELFPAY ==
--- NOTE | ~2022-06-19 | MM_ITS ---
EXAMINATION: MM screening charanjit BI w genevieve HISTORY: Screening mammogram, family history of breast cancer in her sister. TECHNIQUE: Craniocaudal and mediolateral oblique 3-D tomosynthesis images were obtained and synthetic 2-D images were generated. CAD analysis was submitted and interpreted. COMPARISON: 08/02/2020, 10/21/2017, 10/12/2015 BREAST PARENCHYMAL COMPOSITION: There are scattered areas of fibroglandular density. FINDINGS: No suspicious mass, calcification, or architectural distortion are identified in either ambrocio ast to suggest malignancy. There has been no suspicious interval change. IMPRESSION: 1. No mammographic evidence of malignancy. 2. Recommend routine screening mammography in one year. BI-RADS Category 1: Negative Reviewed, dictated and finalized at location A. EAD OPERATOR
== END ==
PROVIDERS: PCP Family Medicine; Visit Provider Physician Assistant
DX: Z12.31 Encounter for screening mammogram for malignant neoplasm of breast (principal)
CPT/HCPCS: 77063; 77067

== ENCOUNTER 2022-06-20 15:19 | Outpatient (CLI) | payer MEDICARE, SELFPAY ==
--- NOTE | ~2022-06-20 | XR_ITS ---
EXAM: XR abdomen/kub 1V DATE: 06/20/2022 15:47 HISTORY: Pt. reports abdominal pain that's been going on forever . COMPARISON: X-ray chest 01/04/2022, ultrasound abdomen 01/01/2013. FINDINGS: Interstitial changes in the lung bases. Granulomatous calcifications in the spleen and felisa er. Cholecystectomy. The liver appears enlarged. Clips scattered punctate calcifications over both ki dneys but also present over multiple loops of bowel. No bowel dilation. Mild degenerative disc diseas e in the lumbar spine. Mild lumbar scoliosis. Mild bilateral hip osteoarthritis, pelvic enthesopathy, and degenerative change at the pubic symphysis. Calcified atherosclerotic plaques. IMPRESSION: No radiographic evidence of obstruction or ileus. Hepatomegaly. Possible bilateral puncta te nephroliths versus summation artifact from bowel content. Reviewed, dictated and finalized at location K. TRIC CUTTER OPERATOR IMPRESSION: No radiographic evidence of obstruction or ileus. Hepatomegaly. Pos sible bilateral punctate nephroliths versus summation artifact from bowel sarita nt.
== END 2022-06-20 15:20 | disposition home or self-care (01) ==
PROVIDERS: PCP Family Medicine; Visit Provider Physician Assistant Medical
DX: R16.0 Hepatomegaly, not elsewhere classified (principal); R10.9 Unspecified abdominal pain
CPT/HCPCS: 74018

== ENCOUNTER 2022-06-24 17:19 | Emergency (ER) | payer MEDICARE, SELFPAY ==
[2022-06-24 17:34] VITALS: BP 141/66; PULSE 83; RESP 18; TEMP 37.2; O2SAT 94
--- NOTE | 2022-06-24 18:16 | ED.FEMALEGU ---
HPI - Female Genitourinary General Chief complaint: Back Pain/Injury Stated complaint: Low Back Pain/Urinary Problem Time Seen by Provider: 06/24/22 18:10 Source: patient, RN notes reviewed and old records reviewed Mode of arrival: ambulatory Limitations: no limitations History of Present Illness HPI Narrative: 71 year old female who presents to [facility] in [facility] with statement of having UTI about a week ago and finished an antibiotic. Patient reports that she is having some left flank discomfort which goes to left abdomen and groin area Patient denies any history of kidney stones, denies any present fevers, nausea vomiting or diarrhea. Patient is wheezing states that she is always like that has history of COPD patient denies feeling short of breath. Patient states that she has a liver scan scheduled tomorrow. Instructed patient that we only have routine x-ray's here and she would need to go to hospital for CT to determine if kidney stone. Patient reports that she is not going to hospital. MD elicited complaint: flank pain Pertinent past history: other (finished antibiotic for UTI 1 wwek ago) Severity scale (1-10): 5 Related Data Home Medications Medication Instructions Recorded Confirmed albuterol sulfate 0.63 mg/3 mL 2.5 mg inhalation Q12H 08/19/19 06/05/22 solution for nebulization albuterol sulfate 90 mcg/actuation 2 inhalation inhalation Q4-6H PRN 08/19/19 06/05/22 aerosol inhaler (ProAir HFA) Shortness Of Breath leflunomide 20 mg tablet 20 mg PO DAILY 08/19/19 06/05/22 cetirizine 10 mg tablet (Zyrtec) 5 mg PO DAILY 08/20/19 06/05/22 diphenhydramine HCl 25 mg tablet 50 mg PO HS 05/20/20 06/05/22 (Benadryl Allergy) budesonide-formoterol HFA 160 1 inh inhalation ONCE 06/22/21 06/05/22 mcg-4.5 mcg/actuation aerosol inhaler (Symbicort) Allergies Allergy/AdvReac Type Severity Reaction Status Date / Time No Known Allergies Verified 08/08/21 13:50 Review of Systems Review of Systems: CONSTITUTIONAL: Denies fever, chills, or sweats. CARDIOVASCULAR: Denies chest pain, palpitations, or edema. RESPIRATORY: Denies cough or dyspnea. GASTROINTESTINAL: left sided abdominal pain,no nausea, vomiting, or diarrhea. GENITOURINARY: Reports dysuria, frequency, urgency. Reports left flank pain no hematuria. SKIN: Denies rash or itching. MUSCULOSKELETAL: Denies back pain or myalgia. Reports left CVA tenderness NEUROLOGIC: Denies headache All systems reviewed & are unremarkable except as noted in HPI and below PMFSH Past Medical History Medical History Anxiety CAD (coronary artery disease) Chronic GERD COPD (chronic obstructive pulmonary disease) Coughing CVA (cerebral vascular accident) Effusion, left knee JOSE DAVID (generalized anxiety disorder) Hepatomegaly Hyperlipidemia Hypertension Hypothyroidism determined by thyroid function test Left knee DJD Left knee pain Left leg weakness Mycobacterial pneumonia NSTEMI (non-ST elevated myocardial infarction) Rheumatoid arthritis SOB (shortness of breath) Zenkers diverticulum Surgical History Surgical History Cataract extraction status History of cholecystectomy History of removal of pigmented skin lesion Family History Family History Mother Family history of heart disease in male family member before age 55 Family history of cardiovascular disease Family history of emphysema Father Family history of cardiovascular disease Acute myocardial infarction Grandparent Family history of malignant neoplasm Sibling Cerebrovascular accident Sibling Cerebrovascular accident Other Arthritis Family history of malignant neoplasm of breast in first degree relative Heart disease Hypertension Social History Social History Social Histor
== END 2022-06-24 18:48 | disposition home or self-care (01) ==
PROVIDERS: Emergency Provider Registered Nurse; PCP Family Medicine
DX: R10.9 Unspecified abdominal pain (principal); Z87.891 Personal history of nicotine dependence; I25.10 Atherosclerotic heart disease of native coronary artery without angina pectoris; K21.9 Gastro-esophageal reflux disease without esophagitis; J44.9 Chronic obstructive pulmonary disease, unspecified; Z86.73 Personal history of transient ischemic attack (TIA), and cerebral infarction without residual deficits; E78.5 Hyperlipidemia, unspecified; I10 Essential (primary) hypertension; E03.9 Hypothyroidism, unspecified; M17.12 Unilateral primary osteoarthritis, left knee; M06.9 Rheumatoid arthritis, unspecified; I25.2 Old myocardial infarction
CPT/HCPCS: 81003; 87804; 99213; G0463

== ENCOUNTER 2022-06-25 09:23 | Outpatient (CLI) | payer MEDICARE, SELFPAY ==
--- NOTE | ~2022-06-25 | US_ITS ---
EXAMINATION: US abdomen limited DATE: 06/25/2022 13:01 INDICATION: Hepatomegaly TECHNIQUE: Multiple grayscale and Doppler ultrasound images of limited portions of the abdomen were o btained. COMPARISON: 01/01/2013. FINDINGS: Echogenic pancreas. The liver is normal with normal echogenicity and echotexture. No surfac e nodularity. Normal hepatopetal flow in the main portal vein. Cholecystectomy The common bile duct m easures 9 mm. There was no sonographic Maurer sign. IMPRESSION: Echogenic pancreas as can be seen with chronic pancreatitis and fatty infiltration. Reviewed, dictated and finalized at location K. CAR DISPATCHER IMPRESSION: Echogenic pancreas as can be seen with chronic pancreatitis and fatty infiltrat ion.
== END 2022-06-25 09:24 | disposition home or self-care (01) ==
PROVIDERS: PCP Family Medicine; Visit Provider Physician Assistant Medical
DX: R16.0 Hepatomegaly, not elsewhere classified (principal)
CPT/HCPCS: 76705

== ENCOUNTER 2022-06-27 02:40 | Emergency (ER) | payer MEDICARE, SELFPAY ==
--- NOTE | ~2022-06-27 | CT_ITS ---
EXAMINATION: CT abdomen pelvis wo con DATE: 06/27/2022 03:32 INDICATION: Left flank pain. TECHNIQUE: Computed tomography (CT) of the abdomen and pelvis was performed without intravenous contr ast. Automated exposure control and iterative reconstruction technique were employed. The dose-length product was 305.12 mGy-cm. COMPARISON: CT abdomen and pelvis 07/03/2010 FINDINGS: The visualized portions of the lung bases demonstrate emphysema and chronic lung disease. N o pleural effusion. The heart size is normal. No pericardial effusion. Calcifications in the liver an d spleen are consistent with old granulomatous disease. There are changes of cholecystectomy. Calcifi cations in the pancreas are consistent with chronic pancreatitis. The common duct measures 12 mm in d iameter. There is a 7 mm stone in the common duct. The adrenal glands are normal. There are small cor tical calcifications in the kidneys. Small calcifications at the hilum of left kidney are likely vasc ular. There is no definite urolithiasis. There is diverticulosis of the colon without evidence of div erticulitis. There are no dilated loops of bowel. The appendix is normal. There are no pathologically enlarged lymph nodes. There is no free intraperitoneal fluid. There is mild thoracolumbar spondylosi s. There is lumbar dextrocurvature is noted. IMPRESSION: 1. Dilated common duct with 7 mm stone. 2. No definite urolithiasis. 3. Emphysema and chronic lung disease. Reviewed, dictated and finalized at location A. ANICAL APPLICATIONS ENGINEER
[2022-06-27 02:52] VITALS: BP 155/67; PULSE 83; RESP 20; TEMP 37; O2SAT 95
--- NOTE | 2022-06-27 02:58 | ECG_ITS ---
Measurements Intervals [place] Rate: 79 P: 81 [place]: 208 QRS: 99 QRSD: 109 T: 58 QT: 370 QTc: 425 Interpretive Statements SINUS RHYTHM BORDERLINE RIGHT AXIS DEVIATION [QRS AXIS > 90] INCOMPLETE RIGHT BUNDLE BRANCH BLOCK COMPARED TO ECG 09/11/2020 14:11:45 NO SIGNIFICANT CHANGES Electronically Signed On 06-27-2022 13:18:49 IMPREGNATION OPERATOR by Adela Reyes M.D.
--- NOTE | 2022-06-27 02:59 | ED.GENADULT ---
HPI - General Adult General Chief complaint: Back Pain/Injury Stated complaint: Left Flank Pain Time Seen by Provider: 06/27/22 02:45 History of Present Illness HPI narrative: This is a 71-year-old female presenting to ED with a chief complaint of left-sided flank pain. The pain started approximately 1 week ago, is describing as an achy pain that radiates to her left groin. It is 8/10 and constant. She has never had pain like this before. It is improved with [place] and worse with movement. It is associated with nausea and vomiting. She denies fever, chills, dysuria. patient notes that she has had difficulty initiating her stream. She denies lower extremity weakness, bowel incontinence saddle anesthesia, known cancer, trauma history of IV drug abuse. Patient has sought medical care for this multiple times over the last week. Initially she was seen by her primary care physician and diagnosed with a UTI. She was given antibiotics and had her symptoms resolved for 1-2 days. It then came back and she was seen in urgent care where she was treated for lower back pain. Since then her pain has continued to recur and she has been sent to the emergency room for further evaluation. Related Data Home Medications Medication Instructions Recorded Confirmed albuterol sulfate 0.63 mg/3 mL 2.5 mg inhalation Q12H 08/19/19 06/05/22 solution for nebulization albuterol sulfate 90 mcg/actuation 2 inhalation inhalation Q4-6H PRN 08/19/19 06/05/22 aerosol inhaler (ProAir HFA) Shortness Of Breath leflunomide 20 mg tablet 20 mg PO DAILY 08/19/19 06/05/22 cetirizine 10 mg tablet (Zyrtec) 5 mg PO DAILY 08/20/19 06/05/22 diphenhydramine HCl 25 mg tablet 50 mg PO HS 05/20/20 06/05/22 (Benadryl Allergy) budesonide-formoterol HFA 160 1 inh inhalation ONCE 06/22/21 06/05/22 mcg-4.5 mcg/actuation aerosol inhaler (Symbicort) Allergies Allergy/AdvReac Type Severity Reaction Status Date / Time No Known Allergies Verified 08/08/21 13:50 Review of Systems Review of Systems: CONSTITUTIONAL: Denies night sweats. EYES: No eye pain ENT: Denies rhinorrhea CARDIOVASCULAR: Denies palpitations RESPIRATORY: Denies hemoptysis GASTROINTESTINAL: Denies hematemesis GENITOURINARY: Denies hematuria. SKIN: Denies rash MUSCULOSKELETAL: Denies myalgia. NEUROLOGIC: Denies weakness. PSYCHIATRIC: Denies delusions [facility] Past Medical History Medical History Anxiety CAD (coronary artery disease) Chronic GERD COPD (chronic obstructive pulmonary disease) Coughing CVA (cerebral vascular accident) Effusion, left knee JOSE DAVID (generalized anxiety disorder) Hepatomegaly Hyperlipidemia Hypertension Hypothyroidism determined by thyroid function test Left knee DJD Left knee pain Left leg weakness Mycobacterial pneumonia NSTEMI (non-ST elevated myocardial infarction) Rheumatoid arthritis SOB (shortness of breath) Zenkers diverticulum Surgical History Surgical History Cataract extraction status History of cholecystectomy History of removal of pigmented skin lesion Family History Family History Mother Family history of heart disease in male family member before age 55 Family history of cardiovascular disease Family history of emphysema Father Family history of cardiovascular disease Acute myocardial infarction Grandparent Family history of malignant neoplasm Sibling Cerebrovascular accident Sibling Cerebrovascular accident Other Arthritis Family history of malignant neoplasm of breast in first degree relative Heart disease Hypertension Social History Social History Social History: The patient is retired from doing office work. She lives with her who is a durable power civil litigation attorney for healthcare. Her daughter Ward
[2022-06-27 03:13] LABS: Basophils Absolute Auto 0.1 K/mm3 (0.0-0.1); Basophils Percent Auto 0.8 % (0.2-1.2); Eosinophils Absolute Auto 0.2 K/mm3 (0-0.3); Eosinophils Percent Auto 2.2 % (0-4.4); Hematocrit 34.1 % (37.0-47.0); Hemoglobin 11.4 g/dL (12.0-15.0); Immature Granulocyte Absolute 0.04 K/mm3 (0.00-0.031); Immature Granulocyte Percent A 0.5 % (0-0.5); Lymphocytes Absolute Auto 1.09 K/mm3 (0.9-3.2); Lymphocytes Percent Auto 13.2 % (18.3-44.2); Mean Corpuscular HGB Conc 33.4 g/dl (32-36); Mean Corpuscular Hemoglobin 29.8 pg (26-34); Mean Corpuscular Volume 89.3 fl (80-100); Mean Platelet Volume 8.5 fl (7.4-10.4); Monocytes Absolute Auto 0.8 K/mm3 (0.1-0.6); Monocytes Percent Auto 9.6 % (2.6-8.5); Neutrophils Absolute Auto 6.1 K/mm3 (1.3-6.7); Neutrophils Percent Auto 73.7 % (45.5-73.1); Platelet Count Result 395 k/mm3 (150-375); Red Blood Count 3.82 M/mm3 (4.2-5.4); Red Cell Distribution Width 13.9 % (11.5-14.5); White Blood Count 8.3 K/mm3 (4.5-10.0)
[2022-06-27] MEDS: HYDROmorphone HCL INJ (*CRX) 1 MG/ML SYR 0.5 MG IV PUSH (03:17)
[2022-06-27 03:25] LABS: Alanine Aminotransferase 17 U/L (6-35); Albumin Level 3.9 g/dL (3.5-5.1); Alkaline Phosphatase 116 U/L (38-126); Anion Gap 6 mmol/L (8-16); Aspartate Amino Transferase 27 U/L (14-36); Bilirubin,Total 0.3 mg/dL (0.2-1.3); Blood Urea Nitrogen 11 mg/dL (7-17); Calcium 8.7 mg/dL (8.4-10.2); Carbon Dioxide 27 mmol/L (22-30); Chloride 96 mmol/L (98-107); Estimated Glomerular Filt Rate > 60; Glucose 122 mg/dL (65-110); Lipase 16 U/L (23-300); Magnesium 1.8 mg/dL (1.6-2.3); Potassium 3.6 mmol/L (3.4-5.0); Sodium 129 mmol/L (137-145)
[2022-06-27] MEDS: SODIUM CHLORIDE 0.9% IV 1,000 ML 999 ML IV CONT (03:32)
[2022-06-27] MEDS: ONDANSETRON INJ 4 MG/2 ML VIAL IV PUSH (03:32)
[2022-06-27 04:06] LABS: Add Urine Microscopic? NO; Appearance Urine Clear (Clear); Bilirubin Urine Negative (Negative); Blood Urine Negative (Negative); Color Urine Light Yellow (Yellow); Glucose Urine UA Negative (Negative); Ketones Urine Negative (Negative); Leukocyte Esterase Ur Negative LEU/UL (Negative); Nitrate Urine Negative (Negative); Protein Urine Negative (Negative); Urobilinogen Urine 0.2 mg/dL (<2.0)
[2022-06-27 04:30] VITALS: BP 153/78; PULSE 77; RESP 18; O2SAT 98
[2022-06-27 05:46] VITALS: BP 136/74; PULSE 76; RESP 18; O2SAT 98
[2022-06-27 07:15] VITALS: BP 156/90; PULSE 88; RESP 19; O2SAT 99
[2022-06-27] MEDS: METHYLNALTREXONE 12 MG/0.6 ML VIAL SUB-Q (07:36)
== END 2022-06-27 07:47 | disposition home or self-care (01) ==
PROVIDERS: Emergency Provider Emergency Medicine; PCP Family Medicine
DX: K59.00 Constipation, unspecified (principal); R10.9 Unspecified abdominal pain; Z87.891 Personal history of nicotine dependence; F41.9 Anxiety disorder, unspecified; I25.10 Atherosclerotic heart disease of native coronary artery without angina pectoris; K21.9 Gastro-esophageal reflux disease without esophagitis; J44.9 Chronic obstructive pulmonary disease, unspecified; Z86.73 Personal history of transient ischemic attack (TIA), and cerebral infarction without residual deficits; I10 Essential (primary) hypertension; E78.5 Hyperlipidemia, unspecified; I25.2 Old myocardial infarction; M06.9 Rheumatoid arthritis, unspecified
CPT/HCPCS: 36415; 51701; 74176; 80053; 81003; 83690; 83735; 85025; 93005; 96361; 96372; 96374; 96375; 99284; J1170; J2212; J2405; J7030

== ENCOUNTER 2022-07-11 14:18 | Outpatient (CLI) | payer MEDICARE, SELFPAY ==
--- NOTE | ~2022-07-11 | XR_ITS ---
Clinical Indication: Shortness of breath, COPD PA and lateral views of the chest: Comparison: 01/04/2022 Findings: Stable chronic bilateral upper lobe interstitial disease and/or bullous change. No acute pu lmonary abnormality seen.. Cardiomediastinal silhouette is within normal limits. Bones and soft tiss ues are unremarkable. Impression: Stable, chronic bilateral upper lobe interstitial disease and/or bullous change. Reviewed, dictated and finalized at location . RMATION TECHNOLOGY INTERNS[employer]IP Impression: Stable, chronic bilateral upper lobe interstitial disease and/or bullous change .
== END 2022-07-11 14:19 | disposition home or self-care (01) ==
PROVIDERS: PCP Family Medicine; Visit Provider Internal Medicine Pulmonary Disease
DX: R06.02 Shortness of breath (principal); J44.9 Chronic obstructive pulmonary disease, unspecified; J45.909 Unspecified asthma, uncomplicated; R91.8 Other nonspecific abnormal finding of lung field
CPT/HCPCS: 71046

== ENCOUNTER 2022-07-24 07:57 | Inpatient (IN) | payer MEDICARE, SELFPAY ==
[2022-07-24] VITALS (30 sets, daily range): BP systolic 102–162; BP diastolic 53–107; PULSE 80–95; RESP 14–22; TEMP 36.1–36.5; O2SAT 87–100; BMI 25.4
--- NOTE | ~2022-07-24 | XR_ITS ---
EXAMINATION: XR chest ET placement DATE: 07/30/2022 05:29 INDICATION: Endotracheal tube, orogastric tube and central line placement TECHNIQUE: frontal view of the chest was obtained. COMPARISON: Chest radiograph dated 07/29/2022 FINDINGS: Endotracheal tube tip 2.9 cm above the keiry. Orogastric tube tip in the body of the stomach. Right internal jugular central venous catheter with distal tip at the midsuperior vena cava. Unchanged appearance of chronic cavitary lung disease with irregular thickened septations in the bila teral upper lung zones . Persistent unchanged findings a pattern at the bilateral lung bases. No pleu ral effusion or pneumothorax. The cardiomediastinal silhouette is normal. IMPRESSION: 1. Lines and tubes in expected positions. 2. Stable appearance of upper lung predominant chronic cavitary lung disease likely combination of bu llous emphysema with scarring related to chronic infection. 2. Stable appearance of a fine reticular pattern at the bilateral lung bases and favor chronic inters titial lung disease over mild pulmonary edema. Reviewed, dictated and finalized at location A. DRILL OPERATOR IMPRESSION: 1. Lines and tubes in expected positions. 2. Stable appearance of upper lung predominant chronic cavitary lung disease li neel combination of bullous emphysema with scarring related to chronic infectio n. 2. Stable appearance of a fine reticular pattern at the bilateral lung bases an d favor chronic interstitial lung disease over mild pulmonary edema.
--- NOTE | ~2022-07-24 | CT_ITS ---
EXAMINATION: CT brain wo con DATE: 07/30/2022 08:31 INDICATION: Cephalopathy. Septic shock. TECHNIQUE: Computed tomography (CT) of the head was performed without intravenous contrast. The dose- length product was 605.33 mGy-cm. Automated exposure control and iterative reconstruction technique w ere employed. COMPARISON: CT dated 09/11/2020 FINDINGS: No acute intracranial hemorrhage, infarction, mass or mass effect. Normal brain parenchymal volume for age. There is intracranial atherosclerosis. No acute intracranial hemorrhage, infarction, mass or mass effect. There is minimal mucosal thickening of the maxillary sinuses. Mastoids are pneu matized. There are scattered mild periventricular and subcortical white matter changes, most likely r elated to small vessel ischemic disease (microangiopathy). IMPRESSION: 1. No acute intracranial abnormality. 2: Chronic age-related findings. Reviewed, dictated and finalized at location A. R AND BOTTOM LACER HAND
--- NOTE | ~2022-07-24 | US_ITS ---
EXAMINATION: US venous doppler [facility] DATE: 07/25/2022 13:50 INDICATION: Left lower limb pain TECHNIQUE: Benton scale images without and with compression and Doppler images of the left lower extrem ity veins were obtained. COMPARISON: None FINDINGS: The left common femoral vein, profunda femoral vein, femoral vein, popliteal vein, peroneal trunk, posterior tibial veins, and greater saphenous vein are patent. IMPRESSION: 1. Patent left lower extremity veins. No evidence of deep venous thrombosis. Reviewed, dictated and finalized at location B. LING FOREMAN
--- NOTE | ~2022-07-24 | US_ITS ---
EXAMINATION: US renal BI DATE: 07/30/2022 16:52 INDICATION: Acute kidney injury rule out hydronephrosis TECHNIQUE: Multiple grayscale and Doppler ultrasound images of the kidneys were obtained. COMPARISON: None. FINDINGS: The right kidney measures 9.7 x 5.0 x 5.0 cm. The left kidney measures 11.1 x 5.0 x 4.5 cm. The kidne ys demonstrate normal parenchymal echogenicity. There is no hydronephrosis. The bladder is decompress ed by catheter. IMPRESSION: Unremarkable renal sonogram findings. Reviewed, dictated and finalized at location K. RVENTIONAL NURSE
--- NOTE | ~2022-07-24 | CT_ITS ---
EXAMINATION: CT abdomen pelvis w con DATE: 07/24/2022 09:19 INDICATION: Abdominal pain TECHNIQUE: Computed tomography (CT) of the abdomen and pelvis was performed with 100 mL Omnipaque-350 intravenous contrast. Automated exposure control and iterative reconstruction technique were employe d. The dose-length product was 292.92 mGy-cm. COMPARISON: 06/27/2022 FINDINGS: Again seen is at least moderate severity emphysema and peripheral predominant chronic interstitial lalit ng disease at the bilateral lung bases. Heart size is normal. No pericardial or pleural effusion. Mul tiple small hepatic and splenic calcifications consistent with old granulomatous disease. Mild extrah epatic biliary ductal dilation. Common bile duct is also dilated to 12 mm which could be related to p rior cholecystectomy with surgical clips the gallbladder fossa. Persistent 7 mm gallstone which does not appear currently obstructing underlying dependently in the more distal aspect of the common bile duct. Pancreas and bilateral adrenal glands are normal. Again seen are a few 2 mm or smaller calcific ations at both kidneys which could represent either nonobstructing renal stones or combination of vas cular and dystrophic calcifications. Bilateral <5 mm low-attenuation likely renal cysts which are too small to definitively characterize. Unchanged mild bilateral perinephric stranding with normal symme tric renal parenchymal enhancement and no hydronephrosis. There are few scattered colonic diverticula without adjacent inflammatory stranding to suggest diverticulitis. Small bowel and appendix are norm al. Morales catheter in the decompressed bladder. Uterus and bilateral adnexa are unremarkable. No free intraperitoneal gas or fluid. No pathologically enlarged abdominal or pelvic lymphadenopathy. There is calcified atherosclerosis of the aorta and many of the other arteries. Lumbar dextrocurvature with mild thoracolumbar spondylosis. IMPRESSION: 1. Unchanged mild intra and extrahepatic biliary ductal dilation which may be related to prior cholec ystectomy with 7 mm currently nonobstructing gallstone in the distal common bile duct. 2. A few unchanged 2 mm smaller calcifications at the bilateral kidneys, likely combination of vascul ar location and parenchymal calcifications rather than nonobstructing renal stones. 3. Emphysema and chronic interstitial lung disease at the lung bases. Reviewed, dictated and finalized at location A. RVISOR BRIDGES AND BUILDINGS IMPRESSION: 1. Unchanged mild intra and extrahepatic biliary ductal dilation which may be r elated to prior cholecystectomy with 7 mm currently nonobstructing gallstone in the distal common bile duct. 2. A few unchanged 2 mm smaller calcifications at the bilateral kidneys, likely combination of vascular location and parenchymal calcifications rather than no nobstructing renal stones. 3. Emphysema and chronic interstitial lung disease at the lung bases.
--- NOTE | ~2022-07-24 | US_ITS ---
US abdomen limited INDICATION: Elevated liver function tests. PROCEDURE: Realtime right upper abdominal ultrasound. COMPARISON: No prior studies for comparison. FINDINGS: Visualized aspects of the pancreas are unremarkable. Pancreas largely obscured by bowel gas . There is mild intrahepatic biliary dilatation. Liver echotexture is otherwise unremarkable. Gallbl adder is surgically absent There is normal directional flow in the portal vein. Common bile duct measures 5.1 mm. IMPRESSION: 1: Mild intrahepatic biliary dilatation. Reviewed, dictated and finalized at location A. ATOLOGIST MANAGING PARTNER
--- NOTE | ~2022-07-24 | XR_ITS ---
EXAMINATION: XR chest 1V INDICATION: Productive cough and shortness of breath TECHNIQUE: AP view of the chest is obtained. COMPARISON: 07/11/2022 FINDINGS: There is chronic scarring of the upper lobes. No acute opacities are identified. The cardio mediastinal silhouette is stable. No pleural effusion or pneumothorax. IMPRESSION: 1. Chronic scarring in the upper lobes without acute findings. Reviewed, dictated and finalized at location L. HER MAKER
--- NOTE | ~2022-07-24 | MR_ITS ---
EXAMINATION: MR lumbar spine wo con DATE: 07/25/2022 11:59 INDICATION: Low back pain and urinary retention TECHNIQUE: Magnetic resonance imaging (MRI) of the lumbar spine was performed without intravenous con trast. Sequences included sagittal T2-weighted FSE, sagittal T2-weighted FS FSE, sagittal T1-weighted FSE, and axial T2-weighted FSE. COMPARISON: None FINDINGS: Alignment is normal. Vertebral body heights are normal. Normal marrow signal. Mild disc height loss at T12-L1, L1-L2, L3-L4 and L4-L5. The conus medullaris terminates at L1-L2. There is normal signal i n the caudal spinal cord. Paravertebral soft tissues are unremarkable. The following disc levels are specifically discussed: T12-L1: Annular fissure and moderate sized left paracentral disc extrusion. There is bilateral facet joint osteoarthritis. There is no neural foraminal stenosis. There is mild central canal stenosis. L1-L2: Disc is bulging with superimposed annular fissures and small central disc extrusion. There is mild bilateral facet joint osteoarthritis. There is mild bilateral neural foraminal stenosis. There i s mild central canal stenosis. L2-L3: Disc is mildly bulging. There is mild bilateral facet joint osteoarthritis. There is minimal b ilateral neural foraminal stenosis. There is mild bilateral central canal stenosis. L3-L4: Annular fissure and broad-based disc extrusion with disc material extending a few millimeter b eyond the endplate margins from foraminal zone to foraminal zone and beyond. There is mild bilateral facet joint osteoarthritis. There is mild left and mild to moderate right neural foraminal stenosis. There is mild stenosis of the central canal and left and right lateral recesses. L4-L5: Annular fissure and broad-based disc extrusion with disc material extending a few millimeter b eyond the endplate margins from foraminal zone to foraminal zone and beyond. There is mild left and m ild to moderate right facet joint osteoarthritis. There is right and mild to moderate left neural for aminal stenosis. There is no stenosis of the central canal and left and right lateral recesses. L5-S1: Disc is mildly bulging. There is moderate bilateral facet joint osteoarthritis. There is mild right and minimal left neural foraminal stenosis. There is no central canal stenosis. IMPRESSION: 1. Mild lumbar spondylosis. Reviewed, dictated and finalized at location A. DEVELOPER IMPRESSION: 1. Mild lumbar spondylosis.
--- NOTE | ~2022-07-24 | XR_ITS ---
XR abdomen/kub 1V 07/30/2022 09:20 INDICATION: Abdomen pain TECHNIQUE: KUB COMPARISON: 06/20/2022 FINDINGS: Bowel gas pattern is normal. NG tube in the stomach. There are surgical clips in the right upper abdomen. There are vascular calcifications. There is no evidence of free air, mass, organomegal y, ascites or obstruction. No abnormal calculi are seen. The bones appear intact. IMPRESSION: 1: No acute abdominal abnormality identified. Reviewed, dictated and finalized at location A. OUTFITTER
--- NOTE | ~2022-07-24 | XR_ITS ---
XR ERCP DATE: 07/27/2022 14:08 INDICATION: 9 mm common bile duct stone, intrahepatic and extrahepatic bile duct dilatation TECHNIQUE: 4 spot C-arm images of the right upper quadrant during ERCP procedure 98.6 seconds fluoroscopy time 14.33 mGy COMPARISON: 07/25/2022 MR MRCP 07/24/2022 CT abdomen pelvis FINDINGS: An endoscope overlies the duodenum, with catheterization of the common bile duct. A filling defect is suggested in the distal right hepatic duct. Please refer to ER CT procedure report. Surgical clips, right upper quadrant, consistent with cholecystectomy IMPRESSION: ERCP procedure; suggestion of distal rightt hepatic duct Reviewed, dictated and finalized at Location A. Reviewed, dictated and finalized at location A. ONAL MANAGER
--- NOTE | ~2022-07-24 | XR_ITS ---
EXAMINATION: XR chest 1V portable DATE: 07/29/2022 21:50 INDICATION: Aspiration TECHNIQUE: frontal view of the chest was obtained. COMPARISON: Chest radiograph dated 07/24/2022 and 08/12/2021 FINDINGS: Typical appearance of chronic cavitary lung disease with irregular thickened septations in the bilate ral upper lung zones consistent with severe bullous emphysema and associated interstitial lung diseas e. Unchanged is a fine reticular pattern at the bilateral lung bases which favor additional chronic i nterstitial lung disease over minimal pulmonary edema. No new airspace opacities to suggest aspiratio n or pneumonia. No pleural effusion or pneumothorax. The cardiomediastinal silhouette is normal. IMPRESSION: 1. Stable appearance of upper lung predominant chronic interstitial lung disease superimposed over em physema. Reviewed, dictated and finalized at location A. PRESIDENT OF ADVERTISING IMPRESSION: 1. Stable appearance of upper lung predominant chronic interstitial lung diseas e superimposed over emphysema.
--- NOTE | ~2022-07-24 | MR_ITS ---
EXAMINATION: MR MRCP wo/w con/w 3D wo ind DATE: 07/25/2022 12:11 INDICATION: Choledocholithiasis TECHNIQUE: Magnetic resonance imaging (MRI) of the abdomen was performed without and with intravenous contrast. Sequences included coronal T2-weighted SS-FSE ARC, coronal T2-weighted FS SS-FSE, coronal T2-weighted 2D FS FIESTA, Water:Coronal LAVA-Flex, sagittal T2-weighted SS-FSE ARC, axial SSFSE ARC, axial 3D DualEcho, axial DWI B=600, axial T1-weighted LAVA, FAT:Coronal LAVA-Flex, and coronal in and opposed phase LAVA-Flex. Thick-slab T2-weighted FRFSE-XL images were obtained for magnetic resonance cholangiopancreatography (MRCP). Maximum intensity projection 3-D reconstructions of the volumetric data were created by the technologist. Postcontrast sequences included a time course of axial T1-weig hted LAVA, FAT:Coronal LAVA-Flex, coronal in and opposed phase LAVA-Flex, and Water:Coronal LAVA-Flex . COMPARISON: CT from yesterday CONTRAST: Multihance, 12 cc FINDINGS: ABDOMEN MRI: Minimal dependent atelectasis is present in the lung bases. The heart size is normal. Th e liver, spleen, pancreas, and adrenal glands are normal. The gallbladder is surgically absent. The l eft kidney is unremarkable. There is a 3 mm cyst of the right kidney. There are no dilated loops of b owel. There is a large volume of colonic stool. No pathologically enlarged abdominal lymph nodes are identified. No abnormal enhancement is identified after contrast administration. Respiratory motion a rtifact somewhat limits postcontrast sequences. There is mild lumbar spondylosis. ABDOMEN MRCP: There is intrahepatic and extrahepatic biliary dilatation. The common bile duct measure s up to 9 mm. There is 9 mm stone in the common bile duct. The pancreatic duct is normal in course an d caliber. IMPRESSION: 1. 9 mm stone in the common bile duct with intrahepatic and extrahepatic biliary dilatation. Reviewed, dictated and finalized at location B. AGENT IMPRESSION: 1. 9 mm stone in the common bile duct with intrahepatic and extrahepatic biliar y dilatation.
--- NOTE | ~2022-07-24 | CT_ITS ---
EXAMINATION: CT chest abdomen pelvis wo con DATE: 07/30/2022 08:45 STOPPING BUILDER INDICATION: Optic shock TECHNIQUE: Computed tomography (CT) of the chest, abdomen, and pelvis was performed without intraveno us contrast. The dose-length product was 571.32 mGy-cm. Automated exposure control and iterative fabian nstruction technique were employed. COMPARISON: Comparison to multiple prior studies sequentially, with oldest reviewed study dated 09/11. FINDINGS: CHEST CT: Heart size is normal. There is atherosclerosis of the aorta and coronary arteries. No thoracic lympha denopathy. There is an endotracheal tube present. NG tube in the stomach. Severe emphysema with a large cavitary mass in the right upper lobe without significant change. There is increasing consolidation in the left upper lobe compared with prior examination. There are ground glass opacities in the lower lobes with reticulonodular densities and areas of tree-in-bud configurat ion in the lower lobes, most likely infectious/inflammatory. No pneumothorax identified. There is chronic right upper lobe pleural thickening/scarring. ABDOMEN/PELVIS CT: There are calcified granulomas of the liver and spleen. Status post cholecystectomy. There is small a mount of ascites. Interval development of abnormal thickening of the colon most prominent in the asce nding and transverse colon, consistent with colitis. There is mild mesenteric edema. Small amount of free fluid in the pelvis. There is a Morales catheter in the bladder. There are small nonobstructing bi lateral renal stones. Extensive atherosclerosis of the abdominal aorta. No aneurysm. Mild dextroscoli osis. No focal lytic or blastic lesions. Possible distal common duct stone. Mild biliary dilatation. IMPRESSION: 1. Severe emphysema with worsening chronic consolidation in the upper lobes, suspicious for superimpo sed infection. There are reticulonodular densities superimposed on groundglass opacities in the lower lobes, most likely infectious. 2: Interval development of thickening of the right colon, compatible with colitis. Differential diagn osis includes infection and less likely ischemic colitis. 3: Progression of ascites and mesenteric edema compared with prior examination. 3: Possible choledocholithiasis with mild biliary dilatation. Status post cholecystectomy. Reviewed, dictated and finalized at location A. PING BUILDER IMPRESSION: 1. Severe emphysema with worsening chronic consolidation in the upper lobes, lawler spicious for superimposed infection. There are reticulonodular densities superi mposed on groundglass opacities in the lower lobes, most likely infectious. 2: Interval development of thickening of the right colon, compatible with colit is. Differential diagnosis includes infection and less likely ischemic colitis. 3: Progression of ascites and mesenteric edema compared with prior examination. 3: Possible choledocholithiasis with mild biliary dilatation. Status post shani cystectomy.
--- NOTE | 2022-07-24 08:12 | ECG_ITS ---
Measurements Intervals [place] Rate: 85 P: 72 [place]: 203 QRS: 103 QRSD: 101 T: 64 QT: 364 QTc: 435 Interpretive Statements SINUS RHYTHM INCOMPLETE RIGHT BUNDLE BRANCH BLOCK DELAYED PRECORDIAL R/S TRANSITION BASELINE ARTIFACT- I, III, AVR, AVL BORDERLINE ECG NO PREVIOUS ECG AVAILABLE FOR COMPARISON Electronically Signed On 07-24-2022 9:11:49 SCHOOL BUS DRIVER/CUSTODIAN by Mihir Albert D.O.
[2022-07-24] MEDS: IPRATROPIUM BR 0.02% INH SOLN 0.5 MG/2.5 ML VIAL INHALATION ×3 (08:31→15:04)
[2022-07-24] MEDS: ALBUTEROL SULFATE NEB 2.5 MG/3 ML INH 5 MG INHALATION ×3 (08:31→15:04)
[2022-07-24 08:33] LABS: Basophils Absolute Auto 0.1 K/mm3 (0.0-0.1); Eosinophils Absolute Auto 0.1 K/mm3 (0-0.3); Eosinophils Percent Auto 1.6 % (0-4.4); Hemoglobin 11.1 g/dL (12.0-15.0); Immature Granulocyte Absolute 0.02 K/mm3 (0.00-0.031); Immature Granulocyte Percent A 0.4 % (0-0.5); Lymphocytes Absolute Auto 1.28 K/mm3 (0.9-3.2); Lymphocytes Percent Auto 25.1 % (18.3-44.2); Mean Corpuscular HGB Conc 32.6 g/dl (32-36); Mean Corpuscular Hemoglobin 29.5 pg (26-34); Mean Corpuscular Volume 90.4 fl (80-100); Mean Platelet Volume 8.7 fl (7.4-10.4); Monocytes Absolute Auto 0.7 K/mm3 (0.1-0.6); Monocytes Percent Auto 13.8 % (2.6-8.5); Neutrophils Percent Auto 58.1 % (45.5-73.1); Platelet Count Result 337 k/mm3 (150-375); Red Blood Count 3.76 M/mm3 (4.2-5.4); Red Cell Distribution Width 15.3 % (11.5-14.5); White Blood Count 5.1 K/mm3 (4.5-10.0)
[2022-07-24 08:36] LABS: Add Urine Microscopic? YES; Appearance Urine Clear (Clear); Bilirubin Urine Negative (Negative); Blood Urine Negative (Negative); Color Urine Yellow (Yellow); Glucose Urine UA Negative (Negative); Ketones Urine Negative (Negative); Leukocyte Esterase Ur Trace LEU/UL (Negative); Nitrate Urine Negative (Negative); Protein Urine Trace mg/dL (Negative); Urobilinogen Urine 0.2 mg/dL (<2.0)
[2022-07-24 08:43] LABS: Alanine Aminotransferase 17 U/L (6-35); Albumin Level 3.9 g/dL (3.5-5.1); Alkaline Phosphatase 107 U/L (38-126); Anion Gap 5 mmol/L (8-16); Aspartate Amino Transferase 23 U/L (14-36); Bilirubin,Total 0.4 mg/dL (0.2-1.3); Blood Urea Nitrogen 14 mg/dL (7-17); Calcium 8.9 mg/dL (8.4-10.2); Carbon Dioxide 26 mmol/L (22-30); Chloride 97 mmol/L (98-107); Estimated CRCL calculation 62 ml/min; Estimated Glomerular Filt Rate > 60; Glucose 104 mg/dL (65-110); Lipase 20 U/L (23-300); Potassium 3.7 mmol/L (3.4-5.0); Sodium 128 mmol/L (137-145)
[2022-07-24 08:44] LABS: INR 1.1; Prothrombin Time 13.4 Seconds (11.1-14.7)
[2022-07-24 08:45] LABS: Partial Thromboplastin Time 31.9 SECONDS (22.3-36.8)
[2022-07-24 08:46] LABS: Mucus Urine Rare /lpf; Squamous Epithelial Cell Urine Rare /hpf (Few)
[2022-07-24] MEDS: methylPREDNISolone SOD SUCC 125 MG VIAL IV PUSH (08:53)
--- NOTE | 2022-07-24 09:03 | ED.GENADULT ---
HPI - General Adult General Chief complaint: Abdominal Pain Stated complaint: SOB Time Seen by Provider: 07/24/22 08:08 Source: RN notes reviewed History of Present Illness HPI narrative: Patient presents emergency department from home for multiple complaints. Patient states that she has been feeling short of breath since last night. States its been associate with a cough this been nonproductive. Patient states she has been wheezing and using her breathing machine at home and has a history of COPD. Patient also states that she has been having abdominal pain in the left lower abdomen for the past 6 weeks the pain is described as sharp and stabbing in nature and radiates around to the back states that she has had no associated nausea vomiting or diarrhea she states she has been seen by her PCP with negative work-up denies any fevers or chills Related Data Home Medications Medication Instructions Recorded Confirmed alprazolam 0.25 mg tablet 0.5 mg PO HS 07/24/22 07/24/22 aspirin 325 mg PO DAILY 07/24/22 07/24/22 atorvastatin 20 mg tablet 20 mg PO DAILY 07/24/22 07/24/22 budesonide-formoterol HFA 160 4.5 inh inhalation BID 07/24/22 07/24/22 mcg-4.5 mcg/actuation aerosol inhaler (Symbicort) cevimeline 30 mg capsule 30 mg PO TID dry mouth 07/24/22 07/24/22 diphenhydramine HCl 50 mg capsule 50 mg PO HS 07/24/22 07/24/22 hydrocodone 5 mg-acetaminophen 325 1 tablet PO TID 07/24/22 07/24/22 mg tablet irbesartan 75 mg tablet 150 mg PO DAILY 07/24/22 07/24/22 leflunomide 20 mg tablet 20 mg PO DAILY 07/24/22 07/24/22 levothyroxine 75 mcg tablet 0.05 mcg PO QAM 07/24/22 07/24/22 omeprazole 20 mg capsule,delayed 20 mg PO DAILY 07/24/22 07/24/22 release Allergies Allergy/AdvReac Type Severity Reaction Status Date / Time No Known Allergies Allergy Verified 07/24/22 08:12 Review of Systems Review of Systems: Gen.: Denies fevers or chills ENT: Denies congestion Respiratory: See HPI CV: Denies chest pain or palpitations GI: Reports left-sided abdominal pain denies vomiting diarrhea Musculoskeletal: Denies back pain or muscle pain Neuro: Denies numbness, tingling, weakness or focal weakness Skin: Denies rash Except as documented, all other systems reviewed and negative [facility] Past Medical History Medical History (Updated 07/24/22 @ 14:05 by Patrick Pickens DO) COPD (chronic obstructive pulmonary disease) Social History Social History (Updated 07/24/22 @ 09:12 by Patrick Pickens DO) Smoking status: Former smoker Tobacco type: cigarettes Alcohol intake: never Substance use: never Lack of Transportation: No Lack of Food: Never True Current Housing: I Do Not Have Housing Concerned About Future Housing: No Difficulty Paying Gas/Electric Bills: No Difficulty Paying for Meds: No Currently Unemployed: No Education: Don't Know Difficulty w/ Childcare or Family Care: No Spiritual care concerns: No Exam Narrative: APPEARANCE: Mild respiratory distress, nontoxic, resting in bed HEENT: Normocephalic, atraumatic, OMM RESPIRATORY: Mild respiratory distress, wheezing throughout the bilateral lung caro with decreased breath sounds in the bases CARDIOVASCULAR: RRR s murmur ABDOMINAL: Soft nondistended tender palpation left lower quadrant no tenderness left upper quadrant, right upper quadrant right lower quadrant no rebound or guarding MUSCULOSKELETAl: Moves all extremities. No clubbing, cyanosis or edema. NEURO: Awake and alert. Following commands, speech normal, no focal deficits SKIN:: Warm, dry. Normal Color PSYCHIATRIC: Normal affect/mood Course Course Emergency Course: Patient continues to have wheezing throughout the bilateral lung caro will admit at this time Discussed with Dr Suh presentation work-up agrees with admission ' Discussed with patient and family results of workup and diagnosis. Discussed need for admission. Patient and family understand and agree to current treat
[2022-07-24 09:08] LABS: Influenza A QL RT-PCR Negative (Negative); Influenza B QL RT-PCR Negative (Negative); SARS-CoV-2 RNA PCR Negative
--- NOTE | 2022-07-24 09:39 | PC.NURSE ---
pt's pulse ox on RA 87%. Oxygen applied per Dr Pickens
--- NOTE | 2022-07-24 12:47 | ADMGEN ---
This patient, Malinda Olvera, was admitted to 3 [facility] Surg Room [id number]. Patient/family oriented to hospital policies and general routines including ID bracelet, bed and alarms, visiting hours, pain management, procedures, bathroom and other care routines, personal items, smoking policy, room service/diet, and visiting hours. Information on how to activate the Rapid Response Team has been discussed. Patient/Family are encouraged to report perceived risks to care and to ask questions if they do not understand what they are told or what they should do.
[2022-07-24] MEDS: methylPREDNISolone SOD SUCC 125 MG VIAL 60 MG IV PUSH ×2 (15:31→21:23)
--- NOTE | 2022-07-24 16:10 | PM.IMHP ---
H&P: HPI History of Present Illness Date/Time: 07/24/22 16:00 Chief Complaint: Shortness of breath and abdominal pain. 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 Early this year the patient was hospitalized with fairly sudden onset of left leg paralysis which was diagnosed as a TIA given negative imaging and complete resolution of symptoms. It is my understanding that she had concomitant COVID at that time. Since then she has had intermittent problems with pain which seems to be stemming from the left lower back and she has intermittent radiating pain down her buttocks, leg, and into the left knee. She has been taking hydrocodone and using a TENS unit at home which seems to have helped however over the past 1 month the pain has continued to worsen. She was previously seen by pain management and it sounds as though they were contemplating doing a nerve radiofrequency ablation which the patient declined. In any event since that time she has had issues with constipation and more recently urinary retention and in fact she had a Morales catheter placed just yesterday at a urologist appointment. She has not had imaging of her lumbar spine to her knowledge, however though she denies numbness, tingling, saddle anesthesia, and focal weakness of the legs. She also complains of an increase in cough from baseline and her cough has been more productive than usual of light yellow phlegm. Last night and this morning she she seemed increasingly short of breath from baseline and this morning her SpO2 was reportedly 84% on room air and she was brought in for evaluation. She is still requiring 2 liters nasal cannula to maintain her SpO2 in the low 90s though patient believes that her low oxygen saturations are due to the fact that she took a half of a hydrocodone last evening and early this morning. She was afebrile on arrival to the emergency department. Pertinent labs include a white blood cell count of 5.1, sodium 128, chloride 97, BUN 14, creatinine 0.50, and normal LFTs. Chest x-ray showed chronic scarring in the upper lobes without acute findings. CT of the abdomen pelvis showed unchanged mild intra and extrahepatic biliary ductal dilatation which may be related to prior cholecystectomy though a 7 millimeter nonobstructing gallstone was noted in the distal common bile duct. She is being admitted in this setting for further observation workup. Review of Systems Review of Systems: Twelve systems were reviewed. No fever, chills, or sweats. She has occasional dysphagia. Reports what sounds like a Zenker's diverticulum for which she has been seeing a specialist at [place] for possible surgical intervention. Appetite has not been great though she denies nausea and vomiting. She was recently taken off of azithromycin which she has taken for quite some time due to what sounds like MAYRA or MAC infection and she reports that she has had several negative sputums. She feels more short of breath than usual with an increase in purulent sputum as detailed above. No orthopnea, paroxysmal nocturnal dyspnea, or lower extremity edema. She denies syncope and near syncope. No chest pain or pleuritic pain. Except as documented, all other systems were reviewed and are negative. [facility] Past Medical History Medical History Anxiety Anxiety CAD (coronary artery disease) Cerebrovascular accident (2019) No residual deficits. Choledocholithiasis Chronic GERD Chronic obstructive pulmonary disease COPD (chronic obstructive pulmonary disease) Coughing CVA (cerebral vascular accident) Effusion, left knee JOSE DAVID (generali
[2022-07-24 16:11] LABS: Creatinine Urine 29.6 mg/dL
[2022-07-24 16:14] LABS: Sodium Urine Random < 5 meq/L
[2022-07-24] MEDS: HYDROcodone/acetaminophen (*CRX) 5-325 MG TABLET 1 TAB PO (16:29)
[2022-07-24] MEDS: ALPRAZolam (*CRX) 0.5 MG TABLET PO (21:23)
[2022-07-24] MEDS: diphenhydrAMINE HCl CAP 25 MG CAPSULE 50 MG PO (21:23)
--- NOTE | 2022-07-24 23:08 | PCRCNOTE ---
past window of administration. see next available administration.
[2022-07-25] VITALS (15 sets, daily range): BP systolic 131–151; BP diastolic 64–77; PULSE 72–88; RESP 18–22; TEMP 36.1–36.4; O2SAT 91–97; BMI 25.4
[2022-07-25] MEDS: ALBUTEROL SULFATE NEB 2.5 MG/3 ML INH 5 MG INHALATION ×4 (02:16→21:22)
[2022-07-25] MEDS: IPRATROPIUM BR 0.02% INH SOLN 0.5 MG/2.5 ML VIAL INHALATION ×4 (02:16→21:22)
--- NOTE | 2022-07-25 02:28 | PCRCNOTE ---
pt stopped treatment early.
[2022-07-25] MEDS: LEVOTHYROXINE SODIUM 50 MCG TABLET PO (05:44)
[2022-07-25 06:30] LABS: Basophils Percent Auto 0.2 % (0.2-1.2); Hemoglobin 10.9 g/dL (12.0-15.0); Immature Granulocyte Absolute 0.02 K/mm3 (0.00-0.031); Immature Granulocyte Percent A 0.4 % (0-0.5); Lymphocytes Absolute Auto 0.57 K/mm3 (0.9-3.2); Lymphocytes Percent Auto 10.9 % (18.3-44.2); Mean Corpuscular Hemoglobin 28.8 pg (26-34); Mean Corpuscular Volume 87.3 fl (80-100); Mean Platelet Volume 8.9 fl (7.4-10.4); Monocytes Absolute Auto 0.3 K/mm3 (0.1-0.6); Monocytes Percent Auto 4.8 % (2.6-8.5); Neutrophils Absolute Auto 4.4 K/mm3 (1.3-6.7); Neutrophils Percent Auto 83.7 % (45.5-73.1); Platelet Count Result 385 k/mm3 (150-375); Red Blood Count 3.78 M/mm3 (4.2-5.4); Red Cell Distribution Width 15.2 % (11.5-14.5); White Blood Count 5.2 K/mm3 (4.5-10.0)
[2022-07-25 06:48] LABS: Alanine Aminotransferase 17 U/L (6-35); Albumin Level 3.8 g/dL (3.5-5.1); Alkaline Phosphatase 86 U/L (38-126); Anion Gap 8 mmol/L (8-16); Aspartate Amino Transferase 27 U/L (14-36); Bilirubin,Total 0.5 mg/dL (0.2-1.3); Blood Urea Nitrogen 19 mg/dL (7-17); CRP 2.8 mg/dL (<1.0); Calcium 8.6 mg/dL (8.4-10.2); Carbon Dioxide 22 mmol/L (22-30); Chloride 103 mmol/L (98-107); Estimated CRCL calculation 62 ml/min; Estimated Glomerular Filt Rate > 60; Glucose 126 mg/dL (65-110); Magnesium 2.2 mg/dL (1.6-2.3); Potassium 4.1 mmol/L (3.4-5.0); Sodium 133 mmol/L (137-145)
[2022-07-25 07:19] LABS: Erythrocyte Sedimentation Rate 75 mm/hr (0-20)
[2022-07-25] MEDS: LIDOCAINE 5% PATCH 1 PATCH TRANSDERM ×2 (08:32→20:13)
[2022-07-25] MEDS: PANTOPRAZOLE 40 MG TABLET PO (08:33)
[2022-07-25] MEDS: LEFLUNOMIDE 20 MG TABLET PO (08:33)
[2022-07-25] MEDS: IRBESARTAN 150 MG TABLET PO (08:33)
[2022-07-25] MEDS: ASPIRIN 325 MG TABLET PO (08:33)
[2022-07-25] MEDS: ATORVASTATIN 20 MG TABLET PO (08:33)
[2022-07-25] MEDS: predniSONE 20 MG TABLET 40 MG PO (08:36)
[2022-07-25] MEDS: AZITHROMYCIN 250 MG TABLET 500 MG PO (08:36)
[2022-07-25] MEDS: FLUTICASONE/SALMETEROL 115-21 MCG INHALER 1 PUFF 2 PUFF INHALATION ×2 (09:06→21:22)
--- NOTE | 2022-07-25 11:20 | PM.IMPN ---
Progress Note: A&P Assessment and Plan (1) Hypoxia: Code(s): R09.02 - Hypoxemia Status: Acute Assessment and Plan: Requiring 2 liters nasal cannula to maintain SpO2 in the low 90s. There is no evidence of pneumonia on chest x-ray and CT of the abdomen/pelvis showed findings of emphysema and chronic lung disease in the lung bases. Most likely secondary to COPD exacerbation. She did take half dose hydrocodone last evening and this morning though this is unlikely to be causing her hypoxia at this point. Continue steroids. Continue azithromycin (2) COPD exacerbation: Code(s): J44.1 - Chronic obstructive pulmonary disease with (acute) exacerbation Status: Acute Assessment and Plan: Continue steroids. Start azithromycin (3) Hyponatremia: Code(s): E87.1 - Hypo-osmolality and hyponatremia Status: Acute Assessment and Plan: Improved, asymptomatic (4) Choledocholithiasis: Code(s): K80.50 - Calculus of bile duct without cholangitis or cholecystitis without obstruction Status: Acute Assessment and Plan: 7 millimeter nonobstructing stone noted in the distal common bile duct on CT today. Alkaline phosphatase, total bilirubin, and AST/ALT are well within normal limits. Could this be the cause of her intermittent abdominal pain? MRCP ordered as she is supposed to have 1 done sometime this week for Dr. Carvajal. GI consult (5) Abdominal pain: Code(s): R10.9 - Unspecified abdominal pain Status: Acute Assessment and Plan: Etiology not entirely clear but may be related to above. GI consult (6) Rheumatoid arthritis: Code(s): M06.9 - Rheumatoid arthritis, unspecified Status: Acute Assessment and Plan: Continue leflunomide daily. (7) Hypothyroidism: Code(s): E03.9 - Hypothyroidism, unspecified Status: Acute Assessment and Plan: Continue levothyroxine and check TSH. (8) Gastroesophageal reflux disease: Code(s): K21.9 - Gastro-esophageal reflux disease without esophagitis Status: Acute Assessment and Plan: Continue PPI. (9) Hypertension: Code(s): I10 - Essential (primary) hypertension Status: Acute Assessment and Plan: Blood pressures were reviewed. Continue antihypertensives and monitor closely. (10) Urinary retention: Code(s): R33.9 - Retention of urine, unspecified Status: Acute Assessment and Plan: Morales catheter inserted yesterday. (11) Left low back pain: Code(s): M54.50 - Low back pain, unspecified Status: Acute Assessment and Plan: MRI pending (12) Epigastric pain: Code(s): R10.13 - Epigastric pain Status: Acute Assessment and Plan: Patient is having abdominal pain with difficulty swallowing. Also she is not eating much solid foods. She denies any recent GI workup. Also having significant weight loss according her. GI consult Subjective Date/time seen: 07/25/22 11:20 Still complaining of some epigastric pain and some issues with swallowing. Also having ongoing back pain and left leg pain. Exam Const: Other: Well-developed, nontoxic-appearing female sitting up in bed. Weight: 61 kilograms. BMI: 25.4. HENMT: Other: Normocephalic, atraumatic. Nares pain bilaterally. Moist mucous membranes. Eyes: Other: Wearing corrective lenses. Pupils are reactive. Extraocular motions intact. Sclerae anicteric. Neck: Other: Supple. No JVD or lymphadenopathy. Resp: Other: Currently on 2 liters nasal cannula. She is speaking in full sentences and appears in no respiratory distress. Lung sounds are diminished throughout with crackles at the bases, left greater than right. Cardio: Other: Regular rate and rhythm with normal S1-S2. GI: Other: Abdomen soft and nondistended with positive bowel sounds. Slightly tender to palpation throughout the left abdomen but
--- NOTE | 2022-07-25 20:07 | PHAR ---
RX [id number] [facility] BOTTLE IDENTIFIED TO CONTAIN DRUG NAME: CEVIMELINE HYDROCHLORIDE INGREDIENTS: CEVIMELINE HYDROCHLORIDE -- 30 MG COLOR: [place] WHITE IMPRINT: EVOXAC 30 MG FORM: ORAL CAPSULE
[2022-07-25] MEDS: diphenhydrAMINE HCl CAP 25 MG CAPSULE 50 MG PO (20:13)
[2022-07-25] MEDS: ALPRAZolam (*CRX) 0.5 MG TABLET PO (20:13)
[2022-07-26] VITALS (12 sets, daily range): BP systolic 138–157; BP diastolic 65–84; PULSE 74–90; RESP 16–20; TEMP 35.8–37.3; O2SAT 91–99
[2022-07-26] MEDS: ALBUTEROL SULFATE NEB 2.5 MG/3 ML INH 5 MG INHALATION ×4 (02:25→20:02)
[2022-07-26] MEDS: IPRATROPIUM BR 0.02% INH SOLN 0.5 MG/2.5 ML VIAL INHALATION ×4 (02:25→20:02)
[2022-07-26] MEDS: traMADol HCL (*CRX) 25 MG TABLET PO (04:35)
[2022-07-26] MEDS: ACETAMINOPHEN 325 MG TABLET 650 MG PO (05:29)
[2022-07-26] MEDS: LEVOTHYROXINE SODIUM 50 MCG TABLET PO (06:08)
[2022-07-26] MEDS: HYDROcodone/acetaminophen (*CRX) 7.5-325 MG TABLET 1 TAB PO (06:09)
[2022-07-26] MEDS: LIDOCAINE 5% PATCH 1 PATCH TRANSDERM (08:31)
[2022-07-26] MEDS: LEFLUNOMIDE 20 MG TABLET PO (08:31)
[2022-07-26] MEDS: ATORVASTATIN 20 MG TABLET PO (08:32)
[2022-07-26] MEDS: predniSONE 20 MG TABLET 40 MG PO (08:32)
[2022-07-26] MEDS: IRBESARTAN 150 MG TABLET PO (08:32)
[2022-07-26] MEDS: AZITHROMYCIN 250 MG TABLET 500 MG PO (08:32)
[2022-07-26] MEDS: PANTOPRAZOLE 40 MG TABLET PO (08:32)
[2022-07-26] MEDS: FLUTICASONE/SALMETEROL 115-21 MCG INHALER 1 PUFF 2 PUFF INHALATION ×2 (09:25→20:05)
[2022-07-26] MEDS: HYDROcodone/acetaminophen (*CRX) 5-325 MG TABLET 1 TAB PO ×2 (12:46→20:31)
--- NOTE | 2022-07-26 13:06 | PM.IMPN ---
Progress Note: A&P Assessment and Plan (1) Hypoxia: Code(s): R09.02 - Hypoxemia Status: Acute Assessment and Plan: Continue steroids. Continue azithromycin (2) COPD exacerbation: Code(s): J44.1 - Chronic obstructive pulmonary disease with (acute) exacerbation Status: Acute Assessment and Plan: Continue steroids. Start azithromycin (3) Hyponatremia: Code(s): E87.1 - Hypo-osmolality and hyponatremia Status: Acute Assessment and Plan: Improved, asymptomatic (4) Choledocholithiasis: Code(s): K80.50 - Calculus of bile duct without cholangitis or cholecystitis without obstruction Status: Acute Assessment and Plan: MRCP noted. GI consult (5) Abdominal pain: Code(s): R10.9 - Unspecified abdominal pain Status: Acute Assessment and Plan: Etiology not entirely clear but may be related to above. GI consult (6) Rheumatoid arthritis: Code(s): M06.9 - Rheumatoid arthritis, unspecified Status: Acute Assessment and Plan: Continue leflunomide daily. (7) Hypothyroidism: Code(s): E03.9 - Hypothyroidism, unspecified Status: Acute Assessment and Plan: Continue levothyroxine and check TSH. (8) Gastroesophageal reflux disease: Code(s): K21.9 - Gastro-esophageal reflux disease without esophagitis Status: Acute Assessment and Plan: Continue PPI. (9) Hypertension: Code(s): I10 - Essential (primary) hypertension Status: Acute Assessment and Plan: Blood pressures were reviewed. Continue antihypertensives and monitor closely. (10) Urinary retention: Code(s): R33.9 - Retention of urine, unspecified Status: Acute Assessment and Plan: Morales catheter inserted yesterday. (11) Left low back pain: Code(s): M54.50 - Low back pain, unspecified Status: Acute Assessment and Plan: MRI pending (12) Epigastric pain: Code(s): R10.13 - Epigastric pain Status: Acute Assessment and Plan: Patient is having abdominal pain with difficulty swallowing. Also she is not eating much solid foods. She denies any recent GI workup. Also having significant weight loss according her. GI consult Subjective Date/time seen: 07/26/22 13:06 Still complaining of abdominal pain Exam Const: Other: Well-developed, nontoxic-appearing female sitting up in bed. Weight: 61 kilograms. BMI: 25.4. HENMT: Other: Normocephalic, atraumatic. Nares pain bilaterally. Moist mucous membranes. Eyes: Other: Wearing corrective lenses. Pupils are reactive. Extraocular motions intact. Sclerae anicteric. Neck: Other: Supple. No JVD or lymphadenopathy. Resp: Other: Currently on 2 liters nasal cannula. She is speaking in full sentences and appears in no respiratory distress. Lung sounds are diminished throughout with crackles at the bases, left greater than right. Cardio: Other: Regular rate and rhythm with normal S1-S2. GI: Other: Abdomen soft and nondistended with positive bowel sounds. Slightly tender to palpation throughout the left abdomen but not significantly so. No guarding or rebound tenderness. No CVA tenderness. : Other: Morales catheter draining clear yellow urine. Back/Spine/Pelvis: Other: No midline vertebral tenderness. Skin: Other: Warm and dry. Neuro: Other: Alert. Cranial nerves 2-12 are grossly intact. No gross focal deficits to casual conversation. Extrem: Other: No cyanosis, clubbing, or edema. Peripheral pulses intact. No pain with range of motion of the left hip her knee. Psych: Other: Pleasant and cooperative with appropriate mood and affect. Perhaps slightly anxious. Objective Data Vital Signs Vital Signs: Vital Signs - 24 hr 07/25/22 13:59 07/25/22 14:19 07/25/22 14:00 Temperature 97 F L Pulse Rate 86 82 88 Respiratory Rate 20 20 20 Blood
--- NOTE | 2022-07-26 16:39 | WPDGICN ---
Assessment and Plan Assessment and plan (1) Choledocholithiasis: Code(s): K80.50 - Calculus of bile duct without cholangitis or cholecystitis without obstruction Status: Acute Assessment and Plan: will proceed with ercp tomorrow to assess bile duct and remove stone (2) Upper abdominal pain: Code(s): R10.10 - Upper abdominal pain, unspecified Status: Acute Assessment and Plan: intermittent, pain control (3) COPD exacerbation: Code(s): J44.1 - Chronic obstructive pulmonary disease with (acute) exacerbation Status: Acute Assessment and Plan: by primary (4) Hypertension: Code(s): I10 - Essential (primary) hypertension Status: Acute GI Consult Note Consult date/time: 07/26/22 16:39 Reason for consult: abdominal pain, choledocholithiasis HPI: Malinda Olvera is a 72 year old female with COPD, mycobacterium infection s/p azithromycin, rheumatoid arthritis, hypothyroidism, hypertension, hyperlipidemia, takotsubo cardiomyopathy in August 2020 with normal EF in December 2020 here with ongoing and intermittent pain in upper abdomen since early June. She also came with shortness of breath and has been using hydrocodone prn. Labs showed white blood cell count of 5.1, sodium 128, chloride 97, BUN 14, creatinine 0.50, and normal LFTs. Chest x-ray showed chronic scarring in the upper lobes without acute findings. CT of the abdomen pelvis showed unchanged mild intra and extrahepatic biliary ductal dilatation which may be related to prior cholecystectomy though a 7 millimeter nonobstructing gallstone was noted in the distal common bile duct, MRCP confirmed finding of 9 mm stone. She is post cholecystectomy, never had EGD. Review of Systems Review of Systems: Gen.: Denies fevers or chills ENT: Denies congestion Respiratory: See HPI CV: Denies chest pain or palpitations GI: upper abdominal pain Musculoskeletal: Denies back pain or muscle pain Neuro: Denies numbness, tingling, weakness or focal weakness Skin: Denies rash Psych: no depression Except as documented, all other systems reviewed and negative [facility] Past Medical History Medical History (Updated 07/26/22 @ 16:49 by Tito Sahni MD) Anxiety Anxiety CAD (coronary artery disease) Cerebrovascular accident (2019) No residual deficits. Choledocholithiasis Chronic GERD Chronic obstructive pulmonary disease COPD (chronic obstructive pulmonary disease) Coughing CVA (cerebral vascular accident) Effusion, left knee JOSE DAVID (generalized anxiety disorder) Gastroesophageal reflux disease Hepatomegaly Hyperlipidemia Hyperlipidemia Hypertension Hypertension Hypothyroidism Hypothyroidism determined by thyroid function test Left knee DJD Left knee pain Left leg weakness Mycobacterial pneumonia Mycobacterium infection NSTEMI (non-ST elevated myocardial infarction) Rheumatoid arthritis Rheumatoid arthritis SOB (shortness of breath) Takotsubo cardiomyopathy (08/2020) EF was 60 to 65% in December 2020. Upper abdominal pain Zenkers diverticulum Surgical History Surgical History (Updated 07/26/22 @ 13:35 by Aileen Pena) Cataract extraction status History of appendectomy History of bilateral cataract extraction History of cardiac catheterization (08/2020) No coronary artery disease. Apical ballooning suggestive of takotsubo cardiomyopathy. History of cholecystectomy History of cholecystectomy History of removal of pigmented skin lesion Family History Family History Mother Family history of heart disease in male family member before age 55 Family history of cardiovascular disease Family history of emphysema Father Family history of cardiovascular disease Acute myocardial infarction Grandparent Family history of malignant neoplasm Sibling Cerebrovascular accident Sibling Cerebrovascular accident Other Arthritis Family hi
[2022-07-26 20:28] LABS: Osmolality, Urine 272 mOsm/kg (50-1200)
[2022-07-26] MEDS: diphenhydrAMINE HCl CAP 25 MG CAPSULE 50 MG PO (20:31)
[2022-07-26] MEDS: ALPRAZolam (*CRX) 0.5 MG TABLET PO (20:31)
[2022-07-27] VITALS (18 sets, daily range): BP systolic 123–174; BP diastolic 28–97; PULSE 67–92; RESP 18–24; TEMP 36.3–37.1; O2SAT 87–100
[2022-07-27] MEDS: ALBUTEROL SULFATE NEB 2.5 MG/3 ML INH 5 MG INHALATION ×2 (02:04→10:29)
[2022-07-27] MEDS: IPRATROPIUM BR 0.02% INH SOLN 0.5 MG/2.5 ML VIAL INHALATION ×2 (02:04→10:29)
[2022-07-27] MEDS: HYDROcodone/acetaminophen (*CRX) 5-325 MG TABLET 1 TAB PO ×3 (04:06→15:32)
[2022-07-27] MEDS: LIDOCAINE 5% PATCH 1 PATCH TRANSDERM ×2 (09:43→20:44)
[2022-07-27] MEDS: FLUTICASONE/SALMETEROL 115-21 MCG INHALER 1 PUFF 2 PUFF INHALATION (10:30)
--- NOTE | 2022-07-27 11:43 | WPDANESEPPF ---
Anes - Initial Pre Proc Eval Procedure: Operation Date: 07/27/22 13:30 Proposed Procedures p Endoscopic Retro Cholangiopancreatogram - Tito Sahni MD Date/Time: 07/27/22 11:43 Surgeon: Omi Suh MD Pre Op Diagnosis: AE COPD,Acute Resp Failure w/hypoxia,LLQ abd pain Patient Data Age: 72 Gender: F Height: 1.55 m Weight: 67 kg Last Vital Signs Temp 37.0 C 07/27/22 06:00 Pulse 82 07/27/22 10:34 Resp 18 07/27/22 10:34 BP 151/64 H 07/27/22 06:00 Pulse Ox 91 07/27/22 06:00 O2 Del Method Room Air 07/27/22 08:50 O2 Flow Rate 1 07/26/22 09:28 Allergies Allergy/AdvReac Type Severity Reaction Status Date / Time No Known Allergies Allergy Verified 07/27/22 12:06 Home Medications Medication Instructions Recorded Confirmed Type albuterol sulfate 0.63 mg/3 mL 2.5 mg inhalation Q12H 08/19/19 06/05/22 History solution for nebulization albuterol sulfate 90 mcg/actuation 2 inhalation inhalation Q4-6H PRN 08/19/19 06/05/22 History aerosol inhaler (ProAir HFA) Shortness Of Breath leflunomide 20 mg tablet 20 mg PO DAILY 08/19/19 06/05/22 History cetirizine 10 mg tablet (Zyrtec) 5 mg PO DAILY 08/20/19 06/05/22 History diphenhydramine HCl 25 mg tablet 50 mg PO HS 05/20/20 06/05/22 History (Benadryl Allergy) budesonide-formoterol HFA 160 1 inh inhalation ONCE 06/22/21 06/05/22 History mcg-4.5 mcg/actuation aerosol inhaler (Symbicort) irbesartan 75 mg tablet 75 mg PO DAILY #90 tabs 12/31/21 06/05/22 Rx tizanidine 2 mg tablet 2 mg PO QHS PRN muscle spasticity 01/10/22 06/05/22 Rx #10 tabs levothyroxine 75 mcg tablet See Rx Instructions .Route 06/06/22 Rx .COMPLEX #90 tabs cevimeline 30 mg capsule 1 cap PO TID #270 caps 06/08/22 Rx cyclobenzaprine 10 mg tablet 10 mg PO TID PRN muscle spasm #60 06/20/22 Rx tabs tramadol 50 mg tablet 50 mg PO Q6H PRN pain #30 tabs 07/02/22 Rx alprazolam 0.25 mg tablet 0.25 mg PO TID PRN Anxiety #90 tabs 07/22/22 Rx atorvastatin 20 mg tablet See Rx Instructions .Route 07/22/22 Rx .COMPLEX #90 tabs omeprazole 20 mg capsule,delayed 20 mg PO DAILY #90 caps 07/22/22 Rx release alprazolam 0.25 mg tablet 0.5 mg PO HS 07/24/22 07/24/22 History aspirin 325 mg PO DAILY 07/24/22 07/24/22 History atorvastatin 20 mg tablet 20 mg PO DAILY 07/24/22 07/24/22 History budesonide-formoterol HFA 160 4.5 inh inhalation BID 07/24/22 07/24/22 History mcg-4.5 mcg/actuation aerosol inhaler (Symbicort) cevimeline 30 mg capsule 30 mg PO TID dry mouth 07/24/22 07/24/22 History diphenhydramine HCl 50 mg capsule 50 mg PO HS 07/24/22 07/24/22 History hydrocodone 5 mg-acetaminophen 325 1 tablet PO TID 07/24/22 07/24/22 History mg tablet irbesartan 75 mg tablet 150 mg PO DAILY 07/24/22 07/24/22 History leflunomide 20 mg tablet 20 mg PO DAILY 07/24/22 07/24/22 History levothyroxine 75 mcg tablet 0.05 mcg PO QAM 07/24/22 07/24/22 History omeprazole 20 mg capsule,delayed 20 mg PO DAILY 07/24/22 07/24/22 History release Laboratory Tests 07/24/22 07/24/22 15:49 16:01 Serum Osmolality 278 mOsm/kg mOsm/kg (278-305) Urine Osmolality 272 mOsm/kg mOsm/kg (50-1200) Patient hx anesthesia problems: none Family hx anesthesia problems: none Results Review: All pre-operative results and documents have been reviewed as part of the pre-operative evaluation. [facility] Past Medical History Medical History Anxiety Anxiety CAD (coronary artery disease) Cerebrovascular accident (2019) No residual deficits. Choledocholithiasis Chronic GERD Chronic obstructive pulmonary disease COPD (chronic obstructive pulmonary disease) Coughing CVA (cerebral vascular accident) Effusion, left knee JOSE DAVID (generalized anxiety disorder) Gastroesophageal reflux disease Hepatomegaly Hyperlipidemia Hyperlipidemia Hypertension Hypertension Hypothyroidism Hypothyroidism d
--- NOTE | 2022-07-27 11:50 | PC.NURSE ---
To GI lab via wheelchair.
[2022-07-27] MEDS: LACTATED RINGERS 1,000 ML 150 ML IV CONT (12:14)
--- NOTE | 2022-07-27 12:17 | PM.IMPN ---
Progress Note: A&P Assessment and Plan (1) Hypoxia: Assessment and Plan: Continue steroids. (2) COPD exacerbation: Assessment and Plan: Continue steroids. (3) Hyponatremia: Assessment and Plan: Improved, asymptomatic (4) Choledocholithiasis: Assessment and Plan: MRCP noted. GI consult (5) Abdominal pain: Assessment and Plan: ERCP planned. (6) Rheumatoid arthritis: Assessment and Plan: Continue leflunomide daily. (7) Hypothyroidism: Assessment and Plan: Continue levothyroxine and check TSH. (8) Gastroesophageal reflux disease: Assessment and Plan: Continue PPI. (9) Hypertension: Assessment and Plan: Blood pressures were reviewed. Continue antihypertensives and monitor closely. (10) Urinary retention: Assessment and Plan: Morales catheter inserted yesterday. (11) Left low back pain: Assessment and Plan: MRI pending (12) Epigastric pain: Assessment and Plan: Patient is having abdominal pain with difficulty swallowing. Also she is not eating much solid foods. She denies any recent GI workup. Also having significant weight loss according her. GI consult Subjective Date/time seen: 07/27/22 12:17 No complaints Exam Const: Other: Well-developed, nontoxic-appearing female sitting up in bed. Weight: 61 kilograms. BMI: 25.4. HENMT: Other: Normocephalic, atraumatic. Nares pain bilaterally. Moist mucous membranes. Eyes: Other: Wearing corrective lenses. Pupils are reactive. Extraocular motions intact. Sclerae anicteric. Neck: Other: Supple. No JVD or lymphadenopathy. Resp: Other: Currently on 2 liters nasal cannula. She is speaking in full sentences and appears in no respiratory distress. Lung sounds are diminished throughout with crackles at the bases, left greater than right. Cardio: Other: Regular rate and rhythm with normal S1-S2. GI: Other: Abdomen soft and nondistended with positive bowel sounds. Slightly tender to palpation throughout the left abdomen but not significantly so. No guarding or rebound tenderness. No CVA tenderness. : Other: Morales catheter draining clear yellow urine. Back/Spine/Pelvis: Other: No midline vertebral tenderness. Skin: Other: Warm and dry. Neuro: Other: Alert. Cranial nerves 2-12 are grossly intact. No gross focal deficits to casual conversation. Extrem: Other: No cyanosis, clubbing, or edema. Peripheral pulses intact. No pain with range of motion of the left hip her knee. Psych: Other: Pleasant and cooperative with appropriate mood and affect. Perhaps slightly anxious. Objective Data Vital Signs Vital Signs: Vital Signs - 24 hr 07/26/22 14:33 07/26/22 14:00 07/26/22 20:01 Temperature 96.4 F L Pulse Rate 84 80 89 Respiratory Rate 20 18 Blood Pressure 138/68 Pulse Oximetry 96 Oxygen Delivery 07/26/22 20:14 07/26/22 20:13 07/26/22 22:00 Temperature 99.2 F Pulse Rate 85 85 90 Respiratory Rate 18 19 Blood Pressure 157/84 H Pulse Oximetry 91 94 Oxygen Delivery Room Air 07/26/22 20:00 07/27/22 02:05 07/27/22 02:20 Temperature Pulse Rate 88 92 Respiratory Rate 18 18 Blood Pressure Pulse Oximetry Oxygen Delivery Room Air 07/27/22 06:00 07/27/22 10:25 07/27/22 10:34 Temperature 98.6 F Pulse Rate 79 80 82 Respiratory Rate 18 18 18 Blood Pressure 151/64 H Pulse Oximetry 91 Oxygen Delivery 07/27/22 08:50 07/27/22 12:09 Temperature Pulse Rate 87 Respiratory Rate 18 Blood Pressure 155/69 H Pulse Oximetry 92 Oxygen Delivery Room Air Room Air Intake/Output Intake/Output: Intake & Output 07/24/22 07/25/22 07/26/22 07/27/22 23:59 23:59 23:59 23:59 Intake Total 1510 1500 1480 250 Output Total 526 240 6570 Balance 910 830 380 250 Meds/Results Medications: Active Medications Generic Name Dose Route Start Last Admin Trade Name
[2022-07-27] MEDS: INDOMETHACIN 50 MG SUPP.RECT RECTAL (13:16)
[2022-07-27] MEDS: diphenhydrAMINE HCl INJ 50 MG/ML VIAL 25 MG IV PUSH (14:28)
--- NOTE | 2022-07-27 15:15 | PC.NURSE ---
Back from GI lab via stretcher.
[2022-07-27] MEDS: AZITHROMYCIN 250 MG TABLET 500 MG PO (15:39)
[2022-07-27] MEDS: predniSONE 20 MG TABLET 40 MG PO (15:40)
[2022-07-27] MEDS: PANTOPRAZOLE 40 MG TABLET PO (15:40)
[2022-07-27] MEDS: LEFLUNOMIDE 20 MG TABLET PO (15:40)
[2022-07-27] MEDS: ONDANSETRON INJ 4 MG/2 ML VIAL IV PUSH (20:26)
[2022-07-27] MEDS: ACETAMINOPHEN 325 MG TABLET 650 MG PO (20:27)
[2022-07-27] MEDS: ALPRAZolam (*CRX) 0.5 MG TABLET PO (20:27)
[2022-07-27] MEDS: diphenhydrAMINE HCl CAP 25 MG CAPSULE 50 MG PO (20:30)
[2022-07-27] MEDS: traMADol HCL (*CRX) 25 MG TABLET PO (20:30)
--- NOTE | 2022-07-27 22:16 | PC.NURSE ---
Patient reporting pain 12 out of 1-10. Patient anxious and restless. ALL ordered interventions per MAR given to patient with no relief. Patient ask that MD be called for something IV to be given. [employer] called, unable to reach. Will call back again or page. Patient otherwise stable and unchanged.
[2022-07-27] MEDS: HYDROmorphone HCL INJ (*CRX) 1 MG/ML SYR 0.5 MG IV PUSH (22:53)
--- NOTE | 2022-07-27 23:10 | PC.NURSE ---
Orders received and administered with good results. Patient is now finally resting.
[2022-07-28] VITALS (7 sets, daily range): BP systolic 150–178; BP diastolic 73–85; PULSE 73–91; RESP 18–20; TEMP 35.9–36.6; O2SAT 89–97
[2022-07-28] MEDS: ONDANSETRON INJ 4 MG/2 ML VIAL IV PUSH ×4 (03:11→18:23)
--- NOTE | 2022-07-28 05:24 | PC.NURSE ---
Patient resting quietly after pain managed under control. No further reports of nausea, or pain. Patient very anxious throughout night before she went to sleep. Wants someone in room most of the time, very impulsive and shakey. VSS and patient resting last few hours after pain medication. Morales draining well with yellow clearish/cloudy urine. No other changes were noted.
[2022-07-28] MEDS: LEVOTHYROXINE SODIUM 50 MCG TABLET PO (06:55)
[2022-07-28 07:08] LABS: Basophils Percent Auto 0.1 % (0.2-1.2); Hematocrit 40.3 % (37.0-47.0); Hemoglobin 12.9 g/dL (12.0-15.0); Immature Granulocyte Absolute 0.08 K/mm3 (0.00-0.031); Immature Granulocyte Percent A 0.6 % (0-0.5); Lymphocytes Absolute Auto 0.68 K/mm3 (0.9-3.2); Mean Corpuscular Hemoglobin 28.7 pg (26-34); Mean Corpuscular Volume 89.6 fl (80-100); Mean Platelet Volume 8.6 fl (7.4-10.4); Monocytes Absolute Auto 0.6 K/mm3 (0.1-0.6); Monocytes Percent Auto 4.2 % (2.6-8.5); Neutrophils Absolute Auto 12.2 K/mm3 (1.3-6.7); Neutrophils Percent Auto 90.1 % (45.5-73.1); Platelet Count Result 439 k/mm3 (150-375); Red Cell Distribution Width 15.4 % (11.5-14.5); White Blood Count 13.6 K/mm3 (4.5-10.0)
[2022-07-28 07:15] LABS: Anion Gap 7 mmol/L (8-16); Blood Urea Nitrogen 20 mg/dL (7-17); Calcium 8.6 mg/dL (8.4-10.2); Carbon Dioxide 27 mmol/L (22-30); Chloride 100 mmol/L (98-107); Estimated CRCL calculation 62 ml/min; Estimated Glomerular Filt Rate > 60; Glucose 144 mg/dL (65-110); Potassium 3.9 mmol/L (3.4-5.0); Sodium 134 mmol/L (137-145)
[2022-07-28 08:24] LABS: Alanine Aminotransferase 26 U/L (6-35); Aspartate Amino Transferase 30 U/L (14-36)
[2022-07-28] MEDS: HYDROmorphone HCL INJ (*CRX) 1 MG/ML SYR 0.5 MG IV PUSH ×2 (08:38→11:14)
[2022-07-28 08:53] LABS: Lipase 7641 U/L (23-300)
--- NOTE | 2022-07-28 09:14 | P.PNAN_ITS ---
Anes - Prog Note Post-Op Date/Time: 07/28/22 09:14 Cardiovascular status: normal Respiratory status: normal Airway patency: baseline Mental status: baseline Post-Op hydration status: normal Vital Signs: Last Vital Signs Temp 36.1 C L 07/28/22 06:00 Pulse 73 07/28/22 06:00 Resp 18 07/28/22 06:00 BP 178/73 H 07/28/22 06:00 Pulse Ox 93 07/28/22 06:00 O2 Del Method Nasal Cannula 07/27/22 15:15 O2 Flow Rate 1 07/27/22 15:15 Pain Score (VAS): 2 I/O: Intake & Output 07/27/22 07/28/22 07/28/22 23:59 07:59 15:59 Intake Total 250 Output Total 1950 650 Balance -1950 -400 Laboratory Tests 07/28/22 06:50 07/28/22 06:50 07/28/22 07/28/22 07/28/22 06:47 06:47 06:50 WBC 13.6 H RBC 4.50 Hgb 12.9 Hct 40.3 MCV 89.6 MCH 28.7 MCHC 32.0 RDW 15.4 H Plt Count 439 H MPV 8.6 Immature Gran % (Auto) 0.6 H Neut % (Auto) 90.1 H Lymph % (Auto) 5.0 L [place] % (Auto) 4.2 Eos % (Auto) 0.0 Baso % (Auto) 0.1 L Lymph # (Auto) 0.68 L [place] # (Auto) 0.6 Eos # (Auto) 0.0 Baso # (Auto) 0.0 Abs Immat Gran (auto) 0.08 H Absolute Neuts (auto) 12.2 H Absolute Nucleated RBC 0.0 Nucleated RBC % 0.0 Sodium Potassium Chloride Carbon Dioxide Anion Gap BUN Creatinine Estim Creat Clear Calc Estimated GFR Glucose Calcium AST 30 ALT 26 Lipase 7641 H 07/28/22 06:50 WBC RBC Hgb Hct MCV MCH MCHC RDW Plt Count MPV Immature Gran % (Auto) Neut % (Auto) Lymph % (Auto) [place] % (Auto) Eos % (Auto) Baso % (Auto) Lymph # (Auto) [place] # (Auto) Eos # (Auto) Baso # (Auto) Abs Immat Gran (auto) Absolute Neuts (auto) Absolute Nucleated RBC Nucleated RBC % Sodium 134 L Potassium 3.9 Chloride 100 Carbon Dioxide 27 Anion Gap 7 L BUN 20 H Creatinine 0.50 L Estim Creat Clear Calc 62 Estimated GFR > 60 Glucose 144 H Calcium 8.6 AST ALT Lipase Microbiology 07/25/22 08:29 Sputum Sputum Culture - Final Post-procedural complaints: none Patient Feedback: Patient satisfied with anesthetic care.
[2022-07-28] MEDS: ALBUTEROL SULFATE NEB 2.5 MG/3 ML INH 5 MG INHALATION (13:44)
[2022-07-28] MEDS: IPRATROPIUM BR 0.02% INH SOLN 0.5 MG/2.5 ML VIAL INHALATION (13:44)
--- NOTE | 2022-07-28 14:01 | PM.IMPN ---
Progress Note: A&P Assessment and Plan (1) Hypoxia: Assessment and Plan: Being better (2) COPD exacerbation: Assessment and Plan: Breathing much better. (3) Hyponatremia: Assessment and Plan: Improved, asymptomatic (4) Choledocholithiasis: Assessment and Plan: MRCP noted. GI consult (5) Abdominal pain: Assessment and Plan: ERCP noted. Still having post procedure pain. Continue pain control. (6) Rheumatoid arthritis: Assessment and Plan: Continue leflunomide daily. (7) Hypothyroidism: Assessment and Plan: Continue levothyroxine and check TSH. (8) Gastroesophageal reflux disease: Assessment and Plan: Continue PPI. (9) Hypertension: Assessment and Plan: Blood pressures were reviewed. Continue antihypertensives and monitor closely. (10) Urinary retention: Assessment and Plan: Morales catheter inserted yesterday. (11) Left low back pain: Assessment and Plan: MRI pending (12) Epigastric pain: Assessment and Plan: Patient is having abdominal pain with difficulty swallowing. Also she is not eating much solid foods. She denies any recent GI workup. Also having significant weight loss according her. GI consult Subjective Date/time seen: 07/28/22 14:01 Having pain after her ERCP Exam Const: Other: Well-developed, nontoxic-appearing female sitting up in bed. Weight: 61 kilograms. BMI: 25.4. HENMT: Other: Normocephalic, atraumatic. Nares pain bilaterally. Moist mucous membranes. Eyes: Other: Wearing corrective lenses. Pupils are reactive. Extraocular motions intact. Sclerae anicteric. Neck: Other: Supple. No JVD or lymphadenopathy. Resp: Other: Currently on 2 liters nasal cannula. She is speaking in full sentences and appears in no respiratory distress. Lung sounds are diminished throughout with crackles at the bases, left greater than right. Cardio: Other: Regular rate and rhythm with normal S1-S2. GI: Other: Abdomen soft and nondistended with positive bowel sounds. Slightly tender to palpation throughout the left abdomen but not significantly so. No guarding or rebound tenderness. No CVA tenderness. : Other: Morales catheter draining clear yellow urine. Back/Spine/Pelvis: Other: No midline vertebral tenderness. Skin: Other: Warm and dry. Neuro: Other: Alert. Cranial nerves 2-12 are grossly intact. No gross focal deficits to casual conversation. Extrem: Other: No cyanosis, clubbing, or edema. Peripheral pulses intact. No pain with range of motion of the left hip her knee. Psych: Other: Pleasant and cooperative with appropriate mood and affect. Perhaps slightly anxious. Objective Data Vital Signs Vital Signs: Vital Signs - 24 hr 07/27/22 14:03 07/27/22 14:43 07/27/22 14:53 Temperature 98.1 F Pulse Rate 86 77 71 Respiratory Rate 22 H 20 24 H Blood Pressure 123/28 L 158/97 H 170/79 H Pulse Oximetry 100 87 L 93 Oxygen Delivery Simple Face Mask Room Air Nasal Cannula Oxygen Flow Rate 8 1 07/27/22 15:03 07/27/22 14:13 07/27/22 14:23 Temperature Pulse Rate 73 84 73 Respiratory Rate 24 H 24 H 18 Blood Pressure 168/86 H 149/74 H 166/86 H Pulse Oximetry 93 100 100 Oxygen Delivery Nasal Cannula Simple Face Mask Simple Face Mask Oxygen Flow Rate 1 4 4 07/27/22 14:33 07/27/22 15:38 07/27/22 15:15 Temperature 97.6 F Pulse Rate 74 71 Respiratory Rate 22 H 20 Blood Pressure 174/88 H 152/57 H Pulse Oximetry 92 92 92 Oxygen Delivery Room Air Nasal Cannula Oxygen Flow Rate 1 07/27/22 20:27 07/27/22 22:00 07/28/22 06:00 Temperature 98.7 F 97.3 F L 97.0 F L Pulse Rate 67 73 Respiratory Rate 18 18 Blood Pressure 169/79 H 178/73 H Pulse Oximetry 94 93 Oxygen Delivery Oxygen Flow Rate 07/28/22 08:35 07/28/22 13:45 07/28/22 13:51 Temperature Pulse Rate 83 85 Respiratory Rate 18 18 Blood Pressure Pulse O
[2022-07-28] MEDS: HYDROmorphone HCL INJ (*CRX) 1 MG/ML SYR IV PUSH ×3 (14:27→23:39)
--- NOTE | 2022-07-28 15:39 | WPDGIPROGNO ---
Progress Note: A&P Assessment and Plan (1) Choledocholithiasis: Code(s): K80.50 - Calculus of bile duct without cholangitis or cholecystitis without obstruction Status: Acute Assessment and Plan: ercp yesterday, mild dilated bile duct but did not find stone (most likely passed), performed sphincterotomy and duct swept multiple times, it was clear only limited pancreatogram and she received indomethacin but today she has abdominal pain (2) Post-ERCP acute pancreatitis: Code(s): K91.89 - Other postprocedural complications and disorders of digestive system; K85.90 - Acute pancreatitis without necrosis or infection, unspecified Status: Acute Assessment and Plan: npo and pain control monitor and supportive care repeat labs tomorrow (3) Upper abdominal pain: Code(s): R10.10 - Upper abdominal pain, unspecified Status: Acute (4) Zenkers diverticulum: Code(s): K22.5 - Diverticulum of esophagus, acquired Status: Acute Assessment and Plan: found during egd- may need follow-up with interventional GI as outpatient (she has episodes of regurgitation) Subjective Date/time seen: 07/28/22 15:39 Interval history: ercp yesterday without stones, performed sphincterotomy and clear bile duct. She received indomethacin supp. Now with nausea and severe upper abdominal pain Review of Systems Review of Systems: All systems reviewed & are unremarkable except as noted in HPI and below Exam Const: Other: c/o pain HENMT: Face/Nose/Sinus: Normal nares present Eyes: General: appearance normal, both eyes and all related structures Neck: Neck: supple Resp: Effort & Inspection: normal respiratory effort Cardio: Rate: regular rate GI: GI Palp: No Firmness to palpation present (GI), Yes Tenderness to palpation present (GI) (epigastric) and Yes Guarding due to palpation present (GI) Other: no rebound Skin: General skin exam: normal color Neuro: Speech: normal speech Motor exam (neuro): 5/5 motor strength present throughout Extrem: General: normal to inspection Psych: Mental Status: mental status grossly normal Objective Data Vital Signs Vital Signs: Vital Signs - 24 hr 07/27/22 20:27 07/27/22 22:00 07/28/22 06:00 Temperature 98.7 F 97.3 F L 97.0 F L Pulse Rate 67 73 Respiratory Rate 18 18 Blood Pressure 169/79 H 178/73 H Pulse Oximetry 94 93 Oxygen Delivery Oxygen Flow Rate 07/28/22 08:35 07/28/22 13:45 07/28/22 13:51 Temperature Pulse Rate 83 85 Respiratory Rate 18 18 Blood Pressure Pulse Oximetry 93 Oxygen Delivery Nasal Cannula Oxygen Flow Rate 1 Intake/Output Intake/Output: Intake & Output 07/25/22 07/26/22 07/27/22 07/28/22 23:59 23:59 23:59 23:59 Intake Total 1500 1480 250 250 Output Total 670 1100 1950 650 Balance 830 380 -1700 -400 Meds/Results Medications: Active Medications Generic Name Dose Route Start Last Admin Trade Name Freq PRN Reason Stop Dose Admin Acetaminophen 650 mg 07/24/22 12:26 07/27/22 20:27 Acetaminophen 325 Mg Tablet PO 650 mg Q6H PRN Administration Mild Pain (1-3) or Fever Hydrocodone Bitart/Acetaminophen 1 tab 07/26/22 08:37 07/27/22 15:32 Hydrocodone/Acetaminophen (*Crx) 5-325 Mg Tablet PO 1 tab Q4H PRN Administration Pain Rated 7-10 Albuterol 5 mg 07/24/22 14:00 07/28/22 13:44 Albuterol Sulfate Neb 2.5 Mg/3 Ml Inh INHALATION 5 mg Q6HRT BOYD Administration Alprazolam 0.5 mg 07/24/22 21:00 07/27/22 20:27 Alprazolam (*Crx) 0.5 Mg Tablet PO 0.5 mg HS BOYD Administration Aspirin 325 mg 07/25/22 09:00 07/28/22 10:26 Aspirin 325 Mg Tablet PO 08/24/22 08:59 Not Given DAILY BOYD Atorvastatin Calcium 20 mg 07/25/22 09:00 07/28/22 10:26 Atorvastatin 20 Mg Tablet PO Not Given DAILY BOYD Azithromycin 500 mg 07/25/22 09:00 07/28/22 14:33 Azithromycin 250 Mg Tablet PO 07/30/22 08:59 Not Given DA
[2022-07-28] MEDS: LACTATED RINGERS 1,000 ML 75 ML IV CONT (17:14)
[2022-07-28] MEDS: ALPRAZolam (*CRX) 0.5 MG TABLET PO (20:30)
[2022-07-28] MEDS: diphenhydrAMINE HCl CAP 25 MG CAPSULE 50 MG PO (20:30)
[2022-07-29] VITALS (10 sets, daily range): BP systolic 98–114; BP diastolic 68–75; PULSE 102–109; RESP 20–32; TEMP 35.9–36.5; O2SAT 91–96
[2022-07-29] MEDS: ONDANSETRON INJ 4 MG/2 ML VIAL IV PUSH ×5 (05:02→22:14)
[2022-07-29 07:31] LABS: Alanine Aminotransferase 26 U/L (6-35); Albumin Level 3.7 g/dL (3.5-5.1); Alkaline Phosphatase 89 U/L (38-126); Anion Gap 8 mmol/L (8-16); Aspartate Amino Transferase 39 U/L (14-36); Blood Urea Nitrogen 37 mg/dL (7-17); Calcium 7.6 mg/dL (8.4-10.2); Carbon Dioxide 21 mmol/L (22-30); Chloride 101 mmol/L (98-107); Estimated CRCL calculation 36 ml/min; Estimated Glomerular Filt Rate > 60; Glucose 135 mg/dL (65-110); Potassium 4.4 mmol/L (3.4-5.0); Sodium 130 mmol/L (137-145)
[2022-07-29 07:56] LABS: Lipase 5181 U/L (23-300)
[2022-07-29] MEDS: FLUTICASONE/SALMETEROL 115-21 MCG INHALER 1 PUFF 2 PUFF INHALATION ×2 (07:58→21:26)
[2022-07-29] MEDS: IPRATROPIUM BR 0.02% INH SOLN 0.5 MG/2.5 ML VIAL INHALATION ×2 (07:58→21:26)
[2022-07-29] MEDS: ALBUTEROL SULFATE NEB 2.5 MG/3 ML INH 5 MG INHALATION ×2 (07:58→21:26)
[2022-07-29] MEDS: LACTATED RINGERS 1,000 ML 75 ML IV CONT (08:27)
[2022-07-29] MEDS: HYDROmorphone HCL INJ (*CRX) 1 MG/ML SYR IV PUSH ×4 (08:34→22:28)
--- NOTE | 2022-07-29 11:51 | WPDGIPROGNO ---
Progress Note: A&P Assessment and Plan (1) Choledocholithiasis: Code(s): K80.50 - Calculus of bile duct without cholangitis or cholecystitis without obstruction Status: Acute Assessment and Plan: ercp showed mild dilated bile duct but did not find stone (most likely passed), performed sphincterotomy and duct swept multiple times only limited pancreatogram and she received indomethacin but developed post ercp pancreatitis (2) Post-ERCP acute pancreatitis: Code(s): K91.89 - Other postprocedural complications and disorders of digestive system; K85.90 - Acute pancreatitis without necrosis or infection, unspecified Status: Acute Assessment and Plan: only CL diet monitor and supportive care (3) Upper abdominal pain: Code(s): R10.10 - Upper abdominal pain, unspecified Status: Acute (4) Zenkers diverticulum: Code(s): K22.5 - Diverticulum of esophagus, acquired Status: Acute Assessment and Plan: found during egd in proximal esophagus- may need follow-up with interventional GI as outpatient (she has episodes of regurgitation and says that has been affecting her eating) Subjective Date/time seen: 07/29/22 11:51 Interval history: still with pain and nausea, she is thirsty and would like to drink some water family members at bedside Review of Systems Review of Systems: All systems reviewed & are unremarkable except as noted in HPI and below Exam Const: Other: c/o pain HENMT: Face/Nose/Sinus: Normal nares present Eyes: General: appearance normal, both eyes and all related structures Neck: Neck: supple Resp: Effort & Inspection: normal respiratory effort Cardio: Rate: regular rate GI: GI Palp: No Firmness to palpation present (GI), Yes Tenderness to palpation present (GI) (epigastric) and Yes Guarding due to palpation present (GI) Other: no rebound Urinary Catheter: Urinary Catheter: patent and draining Skin: General skin exam: normal color Neuro: Speech: normal speech Motor exam (neuro): 5/5 motor strength present throughout Extrem: General: normal to inspection Psych: Mental Status: mental status grossly normal Objective Data Vital Signs Vital Signs: Vital Signs - 24 hr 07/28/22 13:45 07/28/22 13:51 07/28/22 14:00 Temperature 96.7 F L Pulse Rate 83 85 79 Respiratory Rate 18 18 20 Blood Pressure 167/81 H Pulse Oximetry 96 Oxygen Delivery Oxygen Flow Rate 07/28/22 20:00 07/28/22 21:42 07/29/22 07:59 Temperature 97.9 F Pulse Rate 91 109 H Respiratory Rate 18 20 Blood Pressure 150/85 H Pulse Oximetry 97 89 L Oxygen Delivery Nasal Cannula Oxygen Flow Rate 1 07/29/22 08:02 07/29/22 08:11 07/29/22 06:00 Temperature 97.7 F Pulse Rate 109 H 102 H 108 H Respiratory Rate 20 20 22 H Blood Pressure 111/74 Pulse Oximetry 93 91 Oxygen Delivery Nasal Cannula Oxygen Flow Rate 1 07/29/22 08:45 Temperature Pulse Rate Respiratory Rate Blood Pressure Pulse Oximetry 93 Oxygen Delivery Nasal Cannula Oxygen Flow Rate 1 Intake/Output Intake/Output: Intake & Output 07/26/22 07/27/22 07/28/22 07/29/22 23:59 23:59 23:59 23:59 Intake Total 1480 280 811 8933 Output Total 1100 1950 950 0 Balance 380 -1700 -450 1150 Meds/Results Medications: Active Medications Generic Name Dose Route Start Last Admin Trade Name Freq PRN Reason Stop Dose Admin Acetaminophen 650 mg 07/24/22 12:26 07/27/22 20:27 Acetaminophen 325 Mg Tablet PO 650 mg Q6H PRN Administration Mild Pain (1-3) or Fever Hydrocodone Bitart/Acetaminophen 1 tab 07/26/22 08:37 07/27/22 15:32 Hydrocodone/Acetaminophen (*Crx) 5-325 Mg Tablet PO 1 tab Q4H PRN Administration Pain Rated 7-10 Albuterol 5 mg 07/24/22 14:00 07/29/22 07:58 Albuterol Sulfate Neb 2.5 Mg/3 Ml Inh INHALATION 5 mg Q6HRT BOYD Administration Alprazolam 0.5 mg 07/24/22 21:00 07/28/22 20:30 Alprazo
--- NOTE | 2022-07-29 15:52 | PCRCNOTE ---
Window of time for administration has passed. See next scheduled administration.
[2022-07-29 21:55] LABS: Alveolar/Arterial O2 Gradient 13.6 mmHg; Base Excess ABG -8.3 mEq/l (+/-2.0); Fractional Inspired Oxygen 24 %; HCO3 ABG 15.4 mEq/l (22.0-26.0); Oxygen Content ABG 19.5 %vol (16.0-22.0); Oxygen Saturation ABG 98.4 % (95.0-100.0); Oxyhemoglobin 95.6 % THb (90.0-100.0); PCO2 ABG 27.7 mmHg (35.0-45.0); PO2 ABG 124.6 mmHg (80.0-100.0); PO2 FiO2 Ratio Arterial Blood 5.19 %; Total Hemoglobin 14.4 g/dL (12.0-18.0); pH ABG 7.363 (7.350-7.450)
[2022-07-29 21:56] LABS: Device NASAL CANNULA; Modified Allen's Test Unable to perform; Site Drawn RIGHT RADIAL
[2022-07-29 22:05] LABS: Hematocrit 45.9 % (37.0-47.0); Hemoglobin 14.5 g/dL (12.0-15.0); Mean Corpuscular HGB Conc 31.6 g/dl (32-36); Mean Corpuscular Hemoglobin 29.3 pg (26-34); Mean Corpuscular Volume 92.7 fl (80-100); Mean Platelet Volume 9.2 fl (7.4-10.4); Platelet Count Result 466 k/mm3 (150-375); Red Blood Count 4.95 M/mm3 (4.2-5.4); Red Cell Distribution Width 16.2 % (11.5-14.5); White Blood Count 22.1 K/mm3 (4.5-10.0)
--- NOTE | 2022-07-29 22:10 | PCRCNOTE ---
RT entered room and found pt covered in excrement and vomit. dried vomit noted around the mouth. pt stated she had told day shift about messing herself and vomiting hours before and nothing was done to clean her up. RT went and found tech and called viscose cellar charge hand to inform of pts condition. RN called RT and RT reentered room to find pt mottled in the chest, breathing extremely heavy, and had coarse wheezes bilaterally. UPD administered to pt at this time and ABG drawn. aspiration is suspected due to laying flat, unable to sit up and hold self up on own and dried vomit around the mouth. pt is coughing up a brown thin substance at this time as well. Dr. Estevez called and informed of pts condition.
[2022-07-29 22:57] LABS: Anion Gap 12 mmol/L (8-16); Blood Urea Nitrogen 59 mg/dL (7-17); Calcium 6.8 mg/dL (8.4-10.2); Carbon Dioxide 20 mmol/L (22-30); Chloride 100 mmol/L (98-107); Estimated CRCL calculation 16 ml/min; Estimated Glomerular Filt Rate 20; Glucose 120 mg/dL (65-110); Potassium 4.4 mmol/L (3.4-5.0); Sodium 132 mmol/L (137-145)
[2022-07-29 22:58] LABS: Lactic Acid Reflex 4.8 mmol/L (0.7-2.0)
[2022-07-30] VITALS (42 sets, daily range): BP systolic 59–175; BP diastolic 21–98; PULSE 81–115; RESP 21–31; TEMP 36.6–37.3; O2SAT 92–100; BMI 26.2
[2022-07-30] MEDS: SODIUM CHLORIDE 0.9% IV 1,000 ML 999 ML IV CONT ×2 (00:27→05:33)
[2022-07-30] MEDS: LORazepam INJ (*CRX) 2 MG/ML VIAL 1 MG IV PUSH (00:39)
--- NOTE | 2022-07-30 00:41 | P.PNCROSS_ITS ---
Event Note Event Note Event Note: I was called to evaluate the patient due to acute respiratory distress and juan m ling pain. Objective: Patient is sitting in bed acutely ill-looking mottling noted shortness of breath, wheezing. Subjective: I am not feeling well Physical exam General: Patient is sitting in bed in semi upright position ill looking mottling noted mild respiratory distress HEENT: Atraumatic normocephalic PERRLA EOM intact supple no JVD no lymphadenopathies Respiratory: Diminished breath sounds, wheezing scattered throughout Cardiovascular: S1-S2 heard Abdomen: Distended, nontender, no hepatosplenomegaly. Extremities: Mottling all throughout, no edema Central nervous system: Patient is awake alert oriented x3 no focal sensorimotor deficit cranial nerves 2-12 grossly intact Skin: Mottling. ASSESSMENT AND PLAN 1. Sepsis: Early was directed therapy ongoing, started on broad-spectrum antibiotics, panculture. 2. COPD/emphysema exacerbation: The breathing treatments, systemic steroids. 3. Diarrhea: Awaiting C difficile toxin 4. Status post MRCP
[2022-07-30 01:03] LABS: Reflex Lactic Acid Yes or No Add Lactic
[2022-07-30] MEDS: methylPREDNISolone SOD SUCC 125 MG VIAL IV PUSH (03:08)
[2022-07-30 03:29] LABS: Lactic Acid 4.6 mmol/L (0.7-2.0)
[2022-07-30] MEDS: MIDAZOLAM HCL (*CRX) 2 MG/2 ML VIAL 4 MG IV PUSH ×2 (04:26→05:29)
[2022-07-30] MEDS: NOREPINEPHRINE 8 MG/D5W 250 ML 8 MG/250 ML BAG 18.75 MG IV CONT (04:30)
--- NOTE | 2022-07-30 04:39 | PC.NURSE ---
This patient, Malinda Olvera, was received from [facility] on 07/30/22 at 0439 post code blue on ventilator. GRAPPLE OPERATOR, med/surg charge master specialist, ICU charge master specialist, RT, and Dr. Estevez at bedside.
[2022-07-30 04:41] LABS: Toxigenic C. Diff NEGATIVE (NEGATIVE)
[2022-07-30] MEDS: SODIUM BICARBONATE 8.4% 50 MEQ/50 ML SYRINGE 100 MEQ IV PUSH (04:45)
--- NOTE | 2022-07-30 04:47 | PC.NURSE ---
At 0400 Pt set alarm off while climbing out of bed; hunching over the side of the bed. Techs responded to pt immediately. In response pt was placed back in bed. Pt manual bp was 74/42. Pt temporal temperature 96.0, rectally 99.6. Pt was turned to left side to obtain rectal temp. Pt was was turned back to supine and pt was non-responsive. No radial pulses palpated. Carotid pulse faint. Pt still breathing. Pt on 1L of oxygen. Pt had pale, mottled skin and cold. Pt was sternal rubbed with no response. Code Blue was called. Pt intubated and transferred to ICU at 0445.
[2022-07-30 05:03] LABS: Base Excess ABG -12.2 mEq/l (+/-2.0); HCO3 ABG 14.8 mEq/l (22.0-26.0); Oxygen Saturation ABG 99.7 % (95.0-100.0); PCO2 ABG 37.5 mmHg (35.0-45.0); PO2 ABG 399.7 mmHg (80.0-100.0); pH ABG 7.213 (7.350-7.450)
[2022-07-30 05:04] LABS: Alveolar/Arterial O2 Gradient 275.8 mmHg; Carboxyhemoglobin 0.9 % THb (0-2.0); Methemoglobin ABG 0.1 %THb (0-1.5); Oxyhemoglobin 98.1 % THb (90.0-100.0); Reduced Hemoglobin 0.9 %THb (0-5.0)
[2022-07-30 05:05] LABS: Device VENTILATOR; Fractional Inspired Oxygen 100 %; Modified Allen's Test Unable to perform; Site Drawn RIGHT RADIAL
--- NOTE | 2022-07-30 05:07 | PCRCNOTE ---
ABG drawn post intubation. ventilator settings; CMV 400/+5/R18/100% fi02
--- NOTE | 2022-07-30 05:54 | WPDPROCEDUR ---
Procedures Intubation Intubation Date: 07/30/22 Intubation Time: 04:45 Sedative: none ET tube size: 6.5 Tube secured depth (cm): 24 Tube secured location: lips Tube placement confirmation: visualized tube passing through cords, equal breath sounds bilaterally, no breath sounds over epigastrium and confirmation by capnometry Patient tolerated procedure: well Intubation complications: none
--- NOTE | 2022-07-30 05:57 | WPDPROCEDUR ---
Procedures Central Line Placement Right IJ: Central Line Date: 07/30/22 Central Line Time: 05:20 Consent: I have discussed with the patient and/or surrogate, the non-emergent placement of a central venous catheter, including its clinical necessity/indication and associated potential risks and complications. The patient and/or surrogate understand(s) and acknowledge(s) the need to proceed with central venous catheter insertion as an important element of the patient's clinical management. Time Out Performed: Yes Patient Position: trendelenburg Patient placed on monitor/pulse ox: Yes Provider Prep: mask, sterile gown, sterile gloves, Max. sterile barrier precautions, cap, hand hygiene with conventional soap/water or alcohol based hand rub and emergent ? sterile barriers not used Central line prep: 2% Chlorhexidine scrub Sterile US Technique with sterile gel/sterile probe covers: Yes Central line lumen inserted: triple Georgian: 15 Length (cm): 15 Post Procedure: sutured in place, good blood return, all ports aspirated, flushed, capped, transparent dressing, hemostatic product and aseptic technique maintained throughout procedure Post procedure x-ray: tip of catheter in good position and no pneumothorax seen Patient tolerated procedure: no complications Complications: none
--- NOTE | 2022-07-30 06:00 | P.RRN_ITS ---
Critical Care Event Note Summary Code activated: Yes Narrative: OBJECTIVE: Code blue was activated: The patient after pulseless electrical activity brief however patient had ROSC achieved on her own HOWEVER PATIENT BECAME UNRESPONSIVE AND HYPOTENSIVE WAS INTUBATED AND TRANSFERRED TO INTENSIVE CARE UNIT. SUBJECTIVE: UNRESPONSIVE GENERAL: Patient unresponsive laying in bed generalized pallor, mottling, levator reticularis. HEENT: Atraumatic, normocephalic, no JVD, no lymphadenopathy, supple, PERRLA EOM intact. Respiratory: Clear to auscultation bilaterally Cardiovascular: S1-S2 heard Abdomen: Soft, distended, nontender, no hepatosplenomegaly. skin: Intact Central nervous system: Unresponsive move all extremities spontaneously. Assessment and plan 1. Acute respiratory failure: Secondary to septic shock status post intubation currently on ventilator support 2. Pulseless electrical activity cardiac arrest: A spontaneous return pulse is circulation on her own 3. Septic shock: Early goal-directed therapy in progress, placed on broad- spectrum antibiotics, await cultures. 4. Profuse diarrhea: C difficile toxin in progress 5. : Lactic acidosis likely secondary to sepsis: IV fluids continue to trend. This case had a high probability of a clinically significant, sudden, or life threatening deterioration of this patient's condition which required my full and direct attention, intervention and personal management. Critical care time: 75 - 104 mins
[2022-07-30] MEDS: CENTRAL LINE FLUSH 10 ML IV PUSH ×4 (06:02→22:00)
[2022-07-30 06:06] LABS: Hematocrit 36.4 % (37.0-47.0); Hemoglobin 11.5 g/dL (12.0-15.0); Mean Corpuscular HGB Conc 31.6 g/dl (32-36); Mean Corpuscular Hemoglobin 28.8 pg (26-34); Mean Platelet Volume 9.5 fl (7.4-10.4); Platelet Count Result 368 k/mm3 (150-375); White Blood Count 15.8 K/mm3 (4.5-10.0)
[2022-07-30] MEDS: LACTATED RINGERS 1,000 ML 75 ML IV CONT (06:07)
[2022-07-30 06:11] LABS: INR 2.4; Lactic Acid Reflex 3.7 mmol/L (0.7-2.0); Prothrombin Time 25.4 Seconds (11.1-14.7)
[2022-07-30 06:12] LABS: Partial Thromboplastin Time 37.2 SECONDS (22.3-36.8)
[2022-07-30 06:13] LABS: Albumin Level 2.3 g/dL (3.5-5.1); Alkaline Phosphatase 68 U/L (38-126); Anion Gap 8 mmol/L (8-16); Blood Urea Nitrogen 70 mg/dL (7-17); Calcium 4.8 mg/dL (8.4-10.2); Carbon Dioxide 24 mmol/L (22-30); Chloride 104 mmol/L (98-107); Estimated CRCL calculation 15 ml/min; Estimated Glomerular Filt Rate 18; Glucose 92 mg/dL (65-110); Potassium 3.7 mmol/L (3.4-5.0); Sodium 136 mmol/L (137-145)
[2022-07-30] MEDS: FENTANYL 2,500MCG/NS250ML(*CRX 2,500 MCG/250 ML BAG IV CONT (06:30)
[2022-07-30] MEDS: MIDAZOLAM 100MG/NS 100ML(*CRX) 100 MG/100 ML BAG IV CONT (06:31)
[2022-07-30 06:47] LABS: Alanine Aminotransferase > 3750 U/L (6-35); Aspartate Amino Transferase 6220 U/L (14-36)
--- NOTE | 2022-07-30 07:00 | PC.NURSE ---
Levophed Titration for Shift: 0430: started at 10 mcg/min 0454: 5 mcg/min 0459: 0 mcg/min 0524: 10 mcg/min 0601: 9 mcg/min 0611: 0 mcg/min See associated vital signs in the patient's chart.
[2022-07-30 07:33] LABS: Anisocytosis 1+ (NORMAL); Platelet Estimate Adequate (Adequate); Schistocytes None Seen (NORMAL)
[2022-07-30 07:34] LABS: Band Neutrophils Percent 10 % (0-6); Lymphocytes Absolute Manual 0.47 K/mm3 (1.1-4.5); Lymphocytes Percent Manual 3 % (18-44); Monocytes Absolute Manual 0.94 K/mm3 (0.1-0.90); Monocytes Percent Manual 6 % (3-9); Neutrophils Absolute Manual 14.37 K/mm3 (1.7-7.2); Neutrophils Percent Manual 81 % (46-73)
--- NOTE | 2022-07-30 07:59 | PC.NURSE ---
Left message on 's phone. Med/surg called and was not able to get ahold of him and also left a message shortly after pt's transfer to ICU. Tried calling daughter's phone and the line was busy.
[2022-07-30] MEDS: ALBUTEROL SULFATE NEB 2.5 MG/3 ML INH 5 MG INHALATION ×4 (09:10→23:40)
[2022-07-30] MEDS: IPRATROPIUM BR 0.02% INH SOLN 0.5 MG/2.5 ML VIAL INHALATION ×4 (09:10→23:45)
[2022-07-30] MEDS: PANTOPRAZOLE SODIUM IV 40 MG VIAL IV PUSH (09:21)
[2022-07-30] MEDS: ALBUMIN HUMAN 25% 25 GM/100 ML 100 ML IVPB ×3 (09:21→20:36)
[2022-07-30] MEDS: MINERAL OIL/WHITE PETROLATUM OINTMENT 1 APPLIC EACH EYE ×2 (09:21→20:36)
[2022-07-30 09:29] LABS: Creatine Kinase 1106 U/L (30-135)
[2022-07-30 09:42] LABS: Lipase 2742 U/L (23-300)
[2022-07-30] MEDS: hetaSTARCH 6%/NACL 500 ML 250 ML IV CONT (09:42)
[2022-07-30] MEDS: SODIUM BICARBONATE 8.4% 50 MEQ/50 ML SYRINGE IV PUSH (10:14)
--- NOTE | 2022-07-30 10:23 | P.CONNP_ITS ---
Assessment and Plan Assessment and plan (1) Acute kidney injury: Code(s): N17.9 - Acute kidney failure, unspecified Status: Acute Assessment and Plan: * normal kidney function at baseline * insult due to multifactorial ATN from: * infection * sepsis * hemodynamics instability * PEA arrest * prerenal factors * ARB therapy LABOR[employer] RAGS * evaluation to date: * urine electrolytes are prerenal * renal ultrasound pending * CPK mildly elevated at 1106 * urine eosinophils pending * remains at risk for PEWTER FINISHER/dialysis * follow repeat labs and UOP (2) Acute respiratory failure with hypoxia: Code(s): J96.01 - Acute respiratory failure with hypoxia Status: Acute Assessment and Plan: * due to hypoxia during PEA arrest (but obtained ROSC before any intervention with CPR or medications) * on ventilator support * weaning when more stable * follow CXR and ABG results (3) Septic shock: Code(s): A41.9 - Sepsis, unspecified organism; R65.21 - Severe sepsis with septic shock Status: Acute Assessment and Plan: * felt to be secondary to choledocholithiasis and possible ascending colitis * s/p ERCP with spincrterotoy with interventions noted * associated with lactic acidosis, shock liver, and CODY * follow culture date * on antibiotics * vasopressor therapy to maintain MAP (4) Elevated LFTs: Code(s): R79.89 - Other specified abnormal findings of blood chemistry Status: Acute Assessment and Plan: * due to shock liver from hypotension * follow trend of LFTs (5) COPD (chronic obstructive pulmonary disease): Qualifiers: COPD type: unspecified COPD Qualified Code(s): J44.9 - Chronic obstructive pulmonary disease, unspecified Code(s): J44.9 - Chronic obstructive pulmonary disease, unspecified Status: Acute Assessment and Plan: * this likely complicates acute respiratory failure * continue bronchodilator therapy (6) Rheumatoid arthritis: Qualifiers: Rheumatoid arthritis location: unspecified site Rheumatoid factor presence: unspecified presence Qualified Code(s): M06.9 - Rheumatoid arthritis, unspecified Code(s): M06.9 - Rheumatoid arthritis, unspecified Status: Acute Assessment and Plan: * holding alll rheumatoid arthritis medications History of Present Illness Reason for Consult Consult date: 07/30/22 Reason for consult: acute renal failure Chief Complaint Chief complaint: AE COPD,Acute Resp Failure w/hypoxia,LLQ abd pain History of Present Illness Narrative: All the information I have obtained is from review of the electronic medical record S the patient is currently intubated/sedated and unable to provide me with any history at this time. The patient is a 72-year-old female with a past medical history as outlined below who presented to [facility] Emergency room about a week ago with complaints of abdominal pain. Apparently, the abdominal pain had been going on for at least 6 weeks if not longer associated with nausea but no overt 5 minutes in or diarrhea. She apparently also had some shortness of breath with cough but this was only about the last 24 hours prior to her presentation to the ER. Family reported that her oxygen saturations were as low as 84% on room air which really prompted the ER visit despite the fact that her abdominal pain had been a longstanding issue/ problem as well. Workup and evaluation emergency room demonstrated a chest x-ray with chronic scar
--- NOTE | 2022-07-30 10:23 | PM.CNNEP ---
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: urine electrolytes are prerenal renal ultrasound pending CPK mildly elevated at 1106 urine eosinophils pending remains at risk for FINANCIAL COMPLIANCE OFFICER/dialysis follow repeat labs and UOP (2) Acute respiratory failure with hypoxia: Code(s): J96.01 - Acute respiratory failure with hypoxia Status: Acute Assessment and Plan: due to hypoxia during PEA arrest (but obtained ROSC before any intervention with CPR or medications) on ventilator support weaning when more stable follow CXR and ABG results (3) Septic shock: Code(s): A41.9 - Sepsis, unspecified organism; R65.21 - Severe sepsis with septic shock Status: Acute Assessment and Plan: felt to be secondary to choledocholithiasis and possible ascending colitis s/p ERCP with spincrterotoy with interventions noted associated with lactic acidosis, shock liver, and CODY follow culture date on antibiotics vasopressor therapy to maintain MAP (4) Elevated LFTs: Code(s): R79.89 - Other specified abnormal findings of blood chemistry Status: Acute Assessment and Plan: due to shock liver from hypotension follow trend of LFTs (5) COPD (chronic obstructive pulmonary disease): Qualifiers: COPD type: unspecified COPD Qualified Code(s): J44.9 - Chronic obstructive pulmonary disease, unspecified Code(s): J44.9 - Chronic obstructive pulmonary disease, unspecified Status: Acute Assessment and Plan: this likely complicates acute respiratory failure continue bronchodilator therapy (6) Rheumatoid arthritis: Qualifiers: Rheumatoid arthritis location: unspecified site Rheumatoid factor presence: unspecified presence Qualified Code(s): M06.9 - Rheumatoid arthritis, unspecified Code(s): M06.9 - Rheumatoid arthritis, unspecified Status: Acute Assessment and Plan: holding alll rheumatoid arthritis medications History of Present Illness Reason for Consult Consult date: 07/30/22 Reason for consult: acute renal failure Chief Complaint Chief complaint: AE COPD,Acute Resp Failure w/hypoxia,LLQ abd pain History of Present Illness Narrative: All the information I have obtained is from review of the electronic medical record S the patient is currently intubated/sedated and unable to provide me with any history at this time. The patient is a 72-year-old female with a past medical history as outlined below who presented to [facility] Emergency room about a week ago with complaints of abdominal pain. Apparently, the abdominal pain had been going on for at least 6 weeks if not longer associated with nausea but no overt 5 minutes in or diarrhea. She apparently also had some shortness of breath with cough but this was only about the last 24 hours prior to her presentation to the ER. Family reported that her oxygen saturations were as low as 84% on room air which really prompted the ER visit despite the fact that her abdominal pain had been a longstanding issue/problem as well. Workup and evaluation emergency room demonstrated a chest x-ray with chronic scarring in the upper lobes but nothing acute and subsequently given her abdominal pain for the last 6 weeks, a CT scan of the abdomen pelvis demonstrated mild intra and extrahepatic biliary ductal dilation with noted previous cholecystectomy and a 7 mm nonobstructing calculus was seen In the distal common bile duct. Given these imaging findings as well as her history as noted, she was admitted the hospital for further evaluation therapy. It should be
[2022-07-30 10:40] LABS: Creatinine Urine 145.7 mg/dL
[2022-07-30 10:41] LABS: Potassium Urine Random 87.4 meq/L; Sodium Urine Random 12 meq/L
[2022-07-30 10:45] LABS: Eosinophil Urine None Seen % (None Seen)
[2022-07-30] MEDS: SODIUM BICARBONATE 8.4% 150 MEQ in DEXTROSE 5% 1,000 ML 950 ML 100 MEQ IV CONT ×2 (11:02→20:36)
--- NOTE | 2022-07-30 11:48 | PM.IMPN ---
Progress Note: A&P Assessment and Plan (1) Hypoxia: Assessment and Plan: Patient had worsening hypoxia after her respiratory failure event overnight. Now she is in the ICU on the ventilator. Currently sedated (2) COPD exacerbation: Assessment and Plan: On the vent currently. (3) Hyponatremia: Assessment and Plan: Resolved (4) Choledocholithiasis: Assessment and Plan: GI following. CT scan noted. (5) Abdominal pain: Assessment and Plan: CT scan noted. Now with possible colitis. IV antibiotics GI following (6) Rheumatoid arthritis: Assessment and Plan: Chronic and stable (7) Hypothyroidism: Assessment and Plan: Continue levothyroxine and check TSH. (8) Gastroesophageal reflux disease: Assessment and Plan: Continue PPI. (9) Hypertension: Assessment and Plan: Blood pressures were reviewed. Continue antihypertensives and monitor closely. (10) Urinary retention: Assessment and Plan: Morales catheter inserted yesterday. (11) Left low back pain: Assessment and Plan: MRI pending (12) Epigastric pain: Assessment and Plan: See plan (13) Respiratory failure: Code(s): J96.90 - Respiratory failure, unspecified, unspecified whether with hypoxia or hypercapnia Status: Acute Assessment and Plan: History of underlying lung disease or COPD. CT scan shows likely infiltrate. Patient is on IV antibiotics. Continue respiratory support with ventilator (14) Colitis: Code(s): K52.9 - Noninfective gastroenteritis and colitis, unspecified Status: Acute Assessment and Plan: IV antibiotics. Subjective Date/time seen: 07/30/22 11:48 Patient had to be intubated overnight. Rapid response/code blue was called. No CPR was given. Exam Const: Other: Well-developed, nontoxic-appearing female sitting up in bed. Weight: 61 kilograms. BMI: 25.4. HENMT: Other: Normocephalic, atraumatic. Nares pain bilaterally. Moist mucous membranes. Eyes: Other: Wearing corrective lenses. Pupils are reactive. Extraocular motions intact. Sclerae anicteric. Neck: Other: Supple. No JVD or lymphadenopathy. Resp: Other: Currently on 2 liters nasal cannula. She is speaking in full sentences and appears in no respiratory distress. Lung sounds are diminished throughout with crackles at the bases, left greater than right. Cardio: Other: Regular rate and rhythm with normal S1-S2. GI: Other: Abdomen soft and nondistended with positive bowel sounds. Slightly tender to palpation throughout the left abdomen but not significantly so. No guarding or rebound tenderness. No CVA tenderness. : Other: Morales catheter draining clear yellow urine. Back/Spine/Pelvis: Other: No midline vertebral tenderness. Skin: Other: Warm and dry. Neuro: Other: Alert. Cranial nerves 2-12 are grossly intact. No gross focal deficits to casual conversation. Extrem: Other: No cyanosis, clubbing, or edema. Peripheral pulses intact. No pain with range of motion of the left hip her knee. Psych: Other: Pleasant and cooperative with appropriate mood and affect. Perhaps slightly anxious. Objective Data Vital Signs Vital Signs: Vital Signs - 24 hr 07/29/22 14:00 07/29/22 21:28 07/29/22 21:29 Temperature 96.6 F L Pulse Rate 103 H 105 H Respiratory Rate 20 24 H Blood Pressure 98/68 L Pulse Oximetry 96 91 Oxygen Delivery Nasal Cannula Oxygen Flow Rate 1 Fraction of Inspired Oxygen 07/29/22 22:00 07/29/22 20:00 07/30/22 04:30 Temperature 97.2 F L Pulse Rate 107 H 83 Respiratory Rate 32 H Blood Pressure 114/75 Pulse Oximetry 93 93 Oxygen Delivery Nasal Cannula Oxygen Flow Rate 1 Fraction of Inspired Oxygen 07/30/22 05:05 07/30/22 06:30 07/30/22 06:31 Temperature Pulse Rate 89 86 86 Respiratory Rate 31 H 31 H Blood Pressure Pulse Oximetry 94 Oxyge
--- NOTE | 2022-07-30 11:52 | WPDCNINT ---
Assessment and Plan Assessment and plan (1) Acute respiratory failure with hypoxia: Code(s): J96.01 - Acute respiratory failure with hypoxia Status: Acute Assessment and Plan: 07/29/2022: Patient was unresponsive, had a brief PEA arrest and obtained ROSC before any intervention with CPR or medications -patient was hypoxic was intubated on 07/29/2022 -currently on CMV mode of ventilation, peep of 5, 80% FiO2. Wean FiO2 to maintain O2 sats > is 92%. -continue bronchodilators -chest x-ray and ABGs reviewed, ventilator adjusted -sedated with fentanyl and Versed infusion, maintain RASS of 0--2, daily sedation vacation (2) Septic shock: Code(s): A41.9 - Sepsis, unspecified organism; R65.21 - Severe sepsis with septic shock Status: Acute Assessment and Plan: Septic shock most likely related to choledocholithiasis, possible ascending colitis -GI is following the patient -status post ERCP on 07/27/2022 with sphincterotomy, multiple stents sweeps did not show any stones or filling defects -elevated lactic acidosis -shock liver -decreased urine output with acute kidney injury -patient has a central line, started on Levophed, will maintain MAP of > 70 mmHg for adequate end organ perfusion -patient started on vancomycin and Zosyn (07/29) -07/30/2022: Blood cultures have been obtained and pending -lipase levels trending down 07/30/2022 CT scan of the chest, abdomen and pelvis: 1. Severe emphysema with worsening chronic consolidation in the upper lobes, suspicious for superimposed infection. There are reticulonodular densities superimposed on groundglass opacities in the lower lobes, most likely infectious. 2: Interval development of thickening of the right colon, compatible with colitis. Differential diagnosis includes infection and less likely ischemic colitis. 3: Progression of ascites and mesenteric edema compared with prior examination. 3: Possible choledocholithiasis with mild biliary dilatation. Status post cholecystectomy. (3) Acute kidney injury: Code(s): N17.9 - Acute kidney failure, unspecified Status: Acute Assessment and Plan: Patient have acute kidney injury, creatinine 2.6 upon transfer the ICU on 07/30. (0.5-0.9 since admission from 07/24 to 07/29) -likely related to septic shock, infection, hypotension, possible ATN -nephrology has been consulted -will obtain renal ultrasound, -urine sodium reflective of prerenal picture -CK levels 1106 -urine eosinophils pending (4) Elevated LFTs: Code(s): R79.89 - Other specified abnormal findings of blood chemistry Status: Acute Assessment and Plan: Significantly elevated LFTs, normal bilirubin -likely related to shock liver due to hypotension -will maintain adequate mean arterial pressures adequate end organ perfusion -continue to monitor LFTs (5) Choledocholithiasis: Code(s): K80.50 - Calculus of bile duct without cholangitis or cholecystitis without obstruction Status: Acute Assessment and Plan: Possible choledocholithiasis and mild bile E dilatation as mentioned above in the CT scan done on 07/16/2015 23 -will discuss with GI (6) COPD (chronic obstructive pulmonary disease): Qualifiers: COPD type: unspecified COPD Qualified Code(s): J44.9 - Chronic obstructive pulmonary disease, unspecified Code(s): J44.9 - Chronic obstructive pulmonary disease, unspecified Status: Acute Assessment and Plan: History of COPD/emphysema, currently on mechanical ventilation, continue bronchodilators (7) Gastroesophageal reflux disease: Code(s): K21.9 - Gastro-esophageal reflux disease without esophagitis Status: Acute Assessment and Plan: Continue Protonix (8) Rheumatoid arthritis: Qualifiers: Rheumatoid arthritis location: unspecified site Rheumatoid factor presence: unspecified presence Qualified Code(s): M06.9 - Rheumatoid arthritis, unspecified
[2022-07-30 12:14] LABS: Glucose Point of Care 142 mg/dl (65-105)
[2022-07-30 14:40] LABS: Alveolar/Arterial O2 Gradient 170.8 mmHg; Base Excess ABG -1.3 mEq/l (+/-2.0); Fractional Inspired Oxygen 40 %; HCO3 ABG 24.6 mEq/l (22.0-26.0); Oxygen Content ABG 13.2 %vol (16.0-22.0); PCO2 ABG 46.3 mmHg (35.0-45.0); PO2 ABG 61.2 mmHg (80.0-100.0); PO2 FiO2 Ratio Arterial Blood 1.53 %; Total Hemoglobin 10.7 g/dL (12.0-18.0); pH ABG 7.343 (7.350-7.450)
[2022-07-30 14:41] LABS: Arterial Blood Gas PEEP 5 cmH2O; Arterial Blood Gas Tidal Volume 400 ml; Arterial Blood Gas Vent Mode CMV; Arterial Blood Gas Ventilator rate 18 /MIN; Device VENTILATOR; Oxyhemoglobin 87.3 % THb (90.0-100.0); Site Drawn LEFT BRACHIAL
[2022-07-30 14:57] LABS: Lactic Acid Reflex 2.1 mmol/L (0.7-2.0)
--- NOTE | 2022-07-30 15:36 | WPDGIPROGNO ---
Progress Note: A&P Assessment and Plan (1) Septic shock: Code(s): A41.9 - Sepsis, unspecified organism; R65.21 - Severe sepsis with septic shock Status: Acute Assessment and Plan: started on levophed. CT scan showed severe emphysema with cavitary lesion and superimposed infection, she is on antibiotic on levophen and lactic acid trending down with better BP (2) Shock liver: Code(s): K72.00 - Acute and subacute hepatic failure without coma Status: Acute Assessment and Plan: acute elevation of transaminases c/w shock liver monitor in icu, on pressors (3) Elevated LFTs: Code(s): R79.89 - Other specified abnormal findings of blood chemistry Status: Acute Assessment and Plan: also had post ercp pancreatitis ercp with sphincterotomy, noted excellent biliary drainage, bile duct swept multiple times and did not find any stones or filling defects (4) Acute kidney injury: Code(s): N17.9 - Acute kidney failure, unspecified Status: Acute Assessment and Plan: from septic shock monitor (5) Respiratory failure: Code(s): J96.90 - Respiratory failure, unspecified, unspecified whether with hypoxia or hypercapnia Status: Acute Assessment and Plan: with h/o MAC and pnemonia intubated (6) Post-ERCP acute pancreatitis: Code(s): K91.89 - Other postprocedural complications and disorders of digestive system; K85.90 - Acute pancreatitis without necrosis or infection, unspecified Status: Acute Assessment and Plan: npo medical support (7) Acute respiratory failure with hypoxia: Code(s): J96.01 - Acute respiratory failure with hypoxia Status: Acute (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 Daughter at bedside Review of Systems Review of Systems: ROS unobtainable: Yes unobtainable due to endotracheal tube and unobtainable due to mental status Exam Narrative: General: Patient is intubated, sedated, ill-appearing HEENT:? Pupils equal and reactive, sclera is clear Neck:? Supple, Respiratory:? Diffuse coarse breath sounds, decreased at bases, no wheezing, adequate air entry Cardiac:? S1-S2 normal, regular rate and rhythm Abdomen:? Soft, distended, nontender, hypoactive bowel sounds Extremities:? No edema,, palpable pedal pulses Neuro:? Patient is intubated, sedated, does not open her eyes or follow simple commands Skin:? Warm and dry Psych:? Unable to assess at this time Objective Data Vital Signs Vital Signs: Vital Signs - 24 hr 07/29/22 21:28 07/29/22 21:29 07/29/22 22:00 Temperature 97.2 F L Pulse Rate 105 H 107 H Respiratory Rate 24 H 32 H Blood Pressure 114/75 Pulse Oximetry 91 93 Oxygen Delivery Nasal Cannula Oxygen Flow Rate 1 Fraction of Inspired Oxygen 07/29/22 20:00 07/30/22 04:30 07/30/22 05:05 Temperature Pulse Rate 83 89 Respiratory Rate Blood Pressure Pulse Oximetry 93 94 Oxygen Delivery Nasal Cannula Mechanical Ventilation Oxygen Flow Rate 1 Fraction of Inspired Oxygen 100 07/30/22 06:30 07/30/22 06:31 07/30/22 06:00 Temperature Pulse Rate 86 86 86 Respiratory Rate 31 H 31 H Blood Pressure Pulse Oximetry Oxygen Delivery Oxygen Flow Rate Fraction of Inspired Oxygen 07/30/22 06:00 07/30/22 04:45 07/30/22 04:48 Temperature 98.1 F Pulse Rate 87 115 H Respiratory Rate 27 H Blood Pressure 130/79 59/21 L 88/57 L Pulse Oximetry Oxygen Delivery Oxygen Flow Rate Fraction of Inspired Oxygen 07/30/22 04:51 07/30/22 04:54 0
[2022-07-30 16:59] LABS: Appearance Urine Cloudy (Clear); Bilirubin Urine 2+ (Negative); Blood Urine 3+ (Negative); Color Urine Yellow (Yellow); Glucose Urine UA Trace mg/dL (Negative); Ketones Urine 1+ mg/dL (Negative); Leukocyte Esterase Ur Trace LEU/UL (Negative); Nitrate Urine Negative (Negative); Protein Urine 3+ mg/dL (Negative); pH Urine 5.5 (5.0-9.0)
[2022-07-30 16:59] LABS: Hepatitis B Surface Antigen Negative (Negative)
[2022-07-30 17:04] LABS: HAV RESULT Negative (Negative); Hepatitis B Core IgM Result Negative (Negative)
[2022-07-30 17:08] LABS: Amorphous Sediment Urine Few; Bacteria Urine Trace /hpf; Mucus Urine Few /lpf; RBC Urine 21-50 /hpf (0-2); Squamous Epithelial Cell Urine Rare /hpf (Few); WBC Urine 0-3 /hpf
[2022-07-30 17:19] LABS: Add Urine Microscopic? YES
[2022-07-30 17:39] LABS: Reflex Lactic Acid Yes or No Add Lactic
--- NOTE | 2022-07-30 18:12 | PCRCNOTE ---
Window of time for administration has passed. See next scheduled administration.
[2022-07-30 18:28] LABS: Hepatitis C Virus Antibody Negative (Negative)
[2022-07-30 19:00] LABS: Lactic Acid 1.7 mmol/L (0.7-2.0)
[2022-07-30] MEDS: HEPARIN SODIUM 5,000 UNITS/ML VIAL 5000 UNITS SUB-Q (20:36)
[2022-07-31] VITALS: BP 113/51; PULSE 86; RESP 20; TEMP 37.3; O2SAT 98
[2022-07-31 00:10] VITALS: PULSE 92; RESP 22
--- NOTE | 2022-07-31 01:53 | PC.NURSE ---
0135 Bed 4224 received from [facility]. Report called to Fariba Wilson RN at [facility] in [place]. The patient's spouse was called and made aware at which time telephone consent was obtained for transfer.
[2022-07-31 02:00] VITALS: BP 110/47; PULSE 85; PULSE 86; RESP 19; O2SAT 96
[2022-07-31] MEDS: ALBUMIN HUMAN 25% 25 GM/100 ML 100 ML IVPB (02:05)
--- NOTE | 2022-07-31 03:05 | PC.NURSE ---
0300 Patient packed up and transported to [facility] via [facility].
[2022-07-31 11:49] LABS: Arterial Blood Gas PEEP 5 cmH2O; Arterial Blood Gas Tidal Volume 400 ml; Arterial Blood Gas Vent Mode CMV; Arterial Blood Gas Ventilator rate 18 /MIN
[2022-08-02 16:11] LABS: Chloride Rand Ur <20 mmol/L (32-290); Creatinine Random Urine 97 mg/dL (20-275)
--- NOTE | 2022-08-24 07:24 | PM.TDS ---
Transfer Discharge Sum: Prov Provider Date of admission: 07/27/22 14:52 Primary care physician: Megan Adams MD Admitting clinician: Omi Suh MD Consults: 07/25/22 Consult to Physician Routine Comment: Spoke w/ 1209 07/25 (, ) Consulting Provider: Tito Sahni playground supervisor/MD group to consult: gi Reason for consultation: abd pain, dysphagia, wt loss Has provider been notified: Yes 07/30/22 Consult to Physician Routine Comment: Consulting Provider: Álvaro Fernandez Reason for consultation: reap failure Has provider been notified: Yes Consult to Physician Routine Comment: called office ([facility]) Consulting Provider: Demond Ellis playground supervisor/MD group to consult: renal Reason for consultation: blake Has provider been notified: Yes 07/30/22 07:52 Consult to Physician Routine Comment: spoke w office @ 0834 ([facility]) Consulting Provider: Demond Ellis playground supervisor/MD group to consult: Nephrology Reason for consultation: BLAKE Has provider been notified: Yes DS: Admitting Diagnosis Discharge Date 07/31/22 Admitting Diagnosis septic shock cholangitis DS: Discharge Diagnosis Discharge Diagnosis (1) Acute respiratory failure with hypoxia: Code(s): J96.01 - Acute respiratory failure with hypoxia Status: Acute Assessment and Plan: 07/29/2022: Patient was unresponsive, had a brief PEA arrest and obtained ROSC before any intervention with CPR or medications -patient was hypoxic was intubated on 07/29/2022 -currently on CMV mode of ventilation, peep of 5, 80% FiO2. Wean FiO2 to maintain O2 sats > is 92%. -continue bronchodilators -chest x-ray and ABGs reviewed, ventilator adjusted -sedated with fentanyl and Versed infusion, maintain RASS of 0--2, daily sedation vacation (2) Septic shock: Code(s): A41.9 - Sepsis, unspecified organism; R65.21 - Severe sepsis with septic shock Status: Acute Assessment and Plan: Septic shock most likely related to choledocholithiasis, possible ascending colitis -GI is following the patient -status post ERCP on 07/27/2022 with sphincterotomy, multiple stents sweeps did not show any stones or filling defects -elevated lactic acidosis -shock liver -decreased urine output with acute kidney injury -patient has a central line, started on Levophed, will maintain MAP of > 70 mmHg for adequate end organ perfusion -patient started on vancomycin and Zosyn (07/29) -07/30/2022: Blood cultures have been obtained and pending -lipase levels trending down 07/30/2022 CT scan of the chest, abdomen and pelvis: 1. Severe emphysema with worsening chronic consolidation in the upper lobes, suspicious for superimposed infection. There are reticulonodular densities superimposed on groundglass opacities in the lower lobes, most likely infectious. 2: Interval development of thickening of the right colon, compatible with colitis. Differential diagnosis includes infection and less likely ischemic colitis. 3: Progression of ascites and mesenteric edema compared with prior examination. 3: Possible choledocholithiasis with mild biliary dilatation. Status post cholecystectomy. (3) Acute kidney injury: Code(s): N17.9 - Acute kidney failure, unspecified Status: Acute Assessment and Plan: Patient have acute kidney injury, creatinine 2.6 upon transfer the ICU on 07/30. (0.5-0.9 since admission from 07/24 to 07/29) -likely related to septic shock, infection, hypotension, possible ATN -nephrology has been consulted -will obtain renal ultrasound, -urine sodium reflective of prerenal picture -CK levels 1106 -urine eosinophils pending (4) Elevated LFTs: Code(s): R79.89 - Other specified abnormal findings of blood chemistry Status: Acute Assessment and Plan: Significantly elevated LFTs, normal bilirubin -likely related to shock liver due to hypotension -will maintain adequate mean arterial pressures a
== END 2022-07-31 02:45 | disposition short-term general hospital (02) | DRG 444 ==
LOC: ANHED 10:40 → ANH3MEDSUR 10:55 → ANHICU 07-30 05:15
PROVIDERS: Internal Medicine; Internal Medicine Gastroenterology; Physician Assistant; Admitting Provider Internal Medicine; Emergency Provider Emergency Medicine; PCP Family Medicine; Visit Provider Chiropractor
PROC: 0F798ZZ Dilation of Common Bile Duct, Via Natural or Artificial Opening Endoscopic (ICD-10-PCS; CPT 43260; principal; 2022-07-27 13:30)
DX: A41.9 Sepsis, unspecified organism; K80.50 Calculus of bile duct without cholangitis or cholecystitis without obstruction; I46.9 Cardiac arrest, cause unspecified; J96.01 Acute respiratory failure with hypoxia; K85.90 Acute pancreatitis without necrosis or infection, unspecified; R65.21 Severe sepsis with septic shock; K72.00 Acute and subacute hepatic failure without coma; E87.1 Hypo-osmolality and hyponatremia; K91.89 Other postprocedural complications and disorders of digestive system; N17.9 Acute kidney failure, unspecified; R19.7 Diarrhea, unspecified; I95.81 Postprocedural hypotension; J43.9 Emphysema, unspecified; K22.5 Diverticulum of esophagus, acquired; Z20.822 Contact with and (suspected) exposure to COVID-19; E03.9 Hypothyroidism, unspecified; E78.5 Hyperlipidemia, unspecified; F41.1 Generalized anxiety disorder; I25.10 Atherosclerotic heart disease of native coronary artery without angina pectoris; I10 Essential (primary) hypertension; I25.2 Old myocardial infarction; K21.9 Gastro-esophageal reflux disease without esophagitis; K59.00 Constipation, unspecified; M06.9 Rheumatoid arthritis, unspecified; M54.50 Low back pain, unspecified; R33.9 Retention of urine, unspecified; Z86.79 Personal history of other diseases of the circulatory system; Z79.82 Long term (current) use of aspirin; Z87.891 Personal history of nicotine dependence; Z96.0 Presence of urogenital implants; Z86.16 Personal history of COVID-19; Z86.73 Personal history of transient ischemic attack (TIA), and cerebral infarction without residual deficits; Z90.49 Acquired absence of other specified parts of digestive tract; Z98.41 Cataract extraction status, right eye; Z98.42 Cataract extraction status, left eye
CPT/HCPCS: 36415; 36600; 70450; 71045; 71250; 72148; 74018; 74176; 74177; 74183; 74329; 76376; 76705; 76775; 80048; 80053; 80074; 81001; 82375; 82436; 82550; 82570; 82805; 82948; 83050; 83605; 83690; 83735; 83930; 83935; 84133; 84300; 84443; 84450; 84460; 85025; 85027; 85610; 85652; 85730; 85999; 86140; 87040; 87070; 87205; 87493; 87636; 93005; 93971; 94002; 94003; 94640; 96361; 96374; 96375; 96376; 99291; A9270; A9577; C1751; C9113; G0378; J0330; J0456; J1100; J1170; J1200; J1644; J2060; J2250; J2405; J2543; J2704; J2930; J3010; J3370; J7030; J7060; J7070; J7120; J7512; P9047; Q9967